=== PATIENT | male | born 1945 | race Caucasian/White ===

== ENCOUNTER 2024-08-25 03:53 | Emergency (ER) | payer MEDICARE, OTHER, SELFPAY ==
[2024-08-25 04:00] VITALS: BP 184/109
[2024-08-25 04:35] VITALS: BP 133/84
[2024-08-25 05:00] VITALS: BP 118/75
--- NOTE | 2024-08-25 05:22 | ED.GENMED ---
History of Present Illness
General
Chief Complaint: Male Genito-Urinary Symptoms
Source: patient
Time Seen by Provider: 08/25/24 05:12
History of Present Illness
History of Present Illness:
79-year-old male who typically urinates 2-3 times at night, has no prior history of prostate enlargement or abnormalities, states that he developed urinary retention today. He developed the same symptoms about a week ago but it resolved on its own.
Today he presented feeling very uncomfortable with suprapubic fullness and inability urinate. Status post Rivera placement he feels much better. He denies hematuria, dysuria, fever, chills, flank pain, abdominal pain, nausea, vomiting, or other
complaints.
Past History
Past History
ED Past Medical History: COPD, HTN, Hypercholesterolemia and Other (Diabetes)
ED Past Surgical History: Other (Noncontributory)
Social History
Tobacco: Former smoker
Alcohol: Occasional
Drug: None
Personal:
Living: with family
Employment: Employed
Family History
Family History: Other (Noncontributory)
Phy Exam
Physical Exam
Physical Exam:
GENERAL: Alert , in no apparent distress
EYE: pupils equal and reactive
NECK: Supple, no significant adenopathy.
ENT: o/p clr, mmm.
CARDIAC: Regular rate and rhythm .
LUNGS: Clear breath sounds bilaterally, no acute respiratory distress, no wheezes/rales/rhonchi
ABDOMEN: Soft, without focal tenderness, no r/g, no cvat
NEUROLOGICAL: Alert and oriented, no focal neuro deficits
SKIN: Warm and dry, skin intact.
MUSCULOSKELETAL: No edema, well perfused.
PSYCH: Normal and appropriate interaction.
, Rivera catheter in place, no abnormalities noted
Course
Orders/Labs/Results
Orders:
Orders
08/25/24 05:22
Tamsulosin [Flomax] 0.4 mg PO NOW STA
Vital Signs
Initial and Last Documented VS:
Initial Vital Signs
Temp Pulse Resp BP Pulse Ox
97.5 F 126 26 184/109 95
08/25/24 04:00 08/25/24 04:00 08/25/24 04:00 08/25/24 04:00 08/25/24 04:00
Last Documented Vital Signs
Temp Pulse Resp BP Pulse Ox
97.5 F 126 26 118/75 94
08/25/24 04:00 08/25/24 04:00 08/25/24 04:00 08/25/24 05:00 08/25/24 05:15
*Critical Care Note
Total Time (30-74mins, 75-104mins- exclusive of procedures): Not Applicable
Update Note
Update Note:
Patient presents to the Emergency Department with ___inability urinate
Number and Complexity of Problems Addressed at the Encounter
� Chronic conditions affecting care:
� Acute Exacerbation and/or Progression of Chronic Illness:
� Differential Diagnosis includes: But not limited to prostate enlargement, medication reaction, constipation related retention, etc. etc.
Amount and/or Complexity of Data to be Reviewed and Analyzed
� I performed an independent evaluation of and my interpretation is:
EKG:
CT:
Xrays:
Laboratory Studies:
Other:
� Review of other/old records reveals:
� Clinical information was obtained by an independent historian:
� Prescriptions/Medications Considered but not given:
� Further testing considered but not performed:
Risk of Complications and/or Morbidity or Mortality of Patient Management
� Social determinants of health affecting care:
� Discussion with other providers (PCP, Hospitalists, Consultants, etc):
� Escalation of care including admission/observation vs risk of discharge considered: Patient very comfortable status post Rivera placement. He will be discharged with a leg bag with instructions for prompt urology follow-up,
started on Flomax. Discussed with patient portance of follow-up and reasons return to ER.
ED Attending Note
-
Portions of this chart may have been created with voice recognition software.� Occasional wrong word or��sound alike� substitutions may have occurred due to the inherent limitations of voice recognition software.
Discharge Plan
Departure
Patient Disposition: Home (Routine Discharge)
Date of Disposition: 08/25/24
Time of Disposition: 05:22
Patient with high blood pressure during this ER visit?: Yes
Condition: Good
Discharge Problem:
Acute urinary retention
Instructions: How to Care for Your Rivera Catheter, Male, Urinary Retention (DC), BLOOD PRESSURE
Prescriptions:
New
tamsulosin [Flomax] 0.4 mg capsule
0.4 mg PO DAILY Qty: 30 0RF
No Action
guaifenesin 200 MG tablet
200 mg PO BID
lisinopril 10 MG tablet
10 mg PO DAILY
albuterol sulfate 1 PUFF HFA aerosol inhaler
1 puff inhalation R Q4HPRN PRN (Reason: SOB)
mometasone [Asmanex Twisthaler] 110 MCG aerosol powdr breath activated
110 mcg inhalation BID
cholecalciferol (vitamin D3) 2,000 UNITS tablet
5,000 unit PO DAILY
vit B complex 100 combo no.2 [B-100 Complex] 100 MG tablet extended release
100 mg PO DAILY
multivitamin with folic acid [Tab-A-Arian] 1 TABLET tablet
1 tab PO DAILY
Liposomal Vitamin C Gel Gel
3 g PO DAILY
prednisone 10 MG tablet
10 mg PO .TAPER Qty: 30 0RF
Rx Instructions:
Take 40mg daily x3days, 30mg daily x3days,
20mg daily x3days, 10mg daily x3days.
Referrals:
Benjamin Crandall Jr., MD [Active] - Follow up in 5-7 days
Activity Restrictions/Additional Instructions:
IF YOU DEVELOP FEVER, ABDOMINAL PAIN, FLANK PAIN, THE CATHETER DOES NOT DRAIN, VOMITING, OR OTHER WORRISOME SIGNS, PLEASE RETURN TO THE ER IMMEDIATELY.
Interventions
Interventions:
*Risk Screen - Suicide Last Done: 08/25/24 04:00
*General Assessment Last Done: 08/25/24 04:00
*Neglect/Abuse Screening Last Done: 08/25/24 04:00
*ED- Fall Risk Assessment Last Done: 08/25/24 04:00
*ED COVID-19 Vaccine History Last Done: 08/25/24 04:00
ED-Male Genitourinary Assessment Last Done: 08/25/24 05:18
Discharge Date and Time
Print Language: MONGOLIAN
[2024-08-25] MEDS: FLOMAX 0.4 MG PO (05:29)
== END 2024-08-25 06:03 | disposition home or self-care (01) ==
LOC: EMR 03:53
PROVIDERS: EMERGENCY PHYSICIAN Emergency Medicine; FAMILY PHYSICIAN Family Medicine
DX: R33.9 Retention of urine, unspecified (principal); J44.9 Chronic obstructive pulmonary disease, unspecified; I10 Essential (primary) hypertension; E78.00 Pure hypercholesterolemia, unspecified; E11.9 Type 2 diabetes mellitus without complications; Z87.891 Personal history of nicotine dependence
CPT/HCPCS: 51702; 99283

== ENCOUNTER 2024-09-11 06:19 | Day surgery (SDC) | payer MEDICARE, SELFPAY ==
[2024-09-07 14:10] VITALS: BMI 24.4
--- NOTE | 2024-09-07 14:48 | PTCARENOTE ---
Abnormal EKG on 09/07/24. Dr. Riggs aware. No intervention required.
[2024-09-11 12:16] VITALS: BP 116/68; BMI 24.4
[2024-09-11 12:30] LABS: Glucose - Point of Care 99 mg/dl (70-99)
[2024-09-11] MEDS: NEOMYCIN ENEMA 1 BOTTLE RECTAL (12:34)
[2024-09-11] MEDS: NORMOSOL-R/PLASMALYTE-A 1000 IV (12:44)
[2024-09-11 14:18] LABS: Glucose - Point of Care 85 mg/dl (70-99)
[2024-09-11 15:03] VITALS: BP 110/60; BP 93/60
[2024-09-11 15:11] LABS: Glucose - Point of Care 95 mg/dl (70-99)
[2024-09-11 15:30] VITALS: BP 101/64
[2024-09-11 15:45] VITALS: BP 102/60
[2024-09-11 16:00] VITALS: BP 109/59
[2024-09-11 16:15] VITALS: BP 120/65
== END 2024-09-11 16:45 | disposition home or self-care (01) ==
LOC: SDS 06:19
PROVIDERS: ATTENDING PHYSICIAN Specialist; FAMILY PHYSICIAN Family Medicine
DX: C61 Malignant neoplasm of prostate (principal); N40.1 Benign prostatic hyperplasia with lower urinary tract symptoms; R97.20 Elevated prostate specific antigen [PSA]
CPT/HCPCS: 55700; 88305; 36415; 82962; 88341; 88342; 93005

== ENCOUNTER 2024-12-02 00:15 | Inpatient (IN) | payer MEDICARE, SELFPAY ==
[2024-12-01] VITALS (11 sets, daily range): BP systolic 100–160; BP diastolic 59–95; BMI 24.8
[2024-12-01 20:58] LABS: Hematocrit 39.2 % (39.0-52.0); Hemoglobin 14.0 g/dL (13.0-18.0); Mean Corp Hgb Conc. 35.7 g/dL (33.0-37.0); Mean Corpuscular Volume 84.5 fL (80.0-94.0); Nucleated Red Blood Cells % 0 % (-); Platelet Count 264 10^3/uL (130-400); Red Cell Dist. Width 13.9 % (11.5-14.5)
[2024-12-01] MEDS: NITROSTAT (SUBLINGUAL) 0.4 MG SL (21:12)
[2024-12-01 21:24] LABS: ALT (SGPT) 26 U/L (0-50); AST (SGOT) 27 U/L (17-59); Albumin 4.4 g/dl (3.5-5.0); Alkaline Phosphatase 71 U/L (38-126); Blood Urea Nitrogen 27 mg/dl (9-20); Calcium 9.3 mg/dl (8.4-10.2); Carbon Dioxide 24 mmol/L (22-30); Chloride 105 mmol/L (98-107); Estimated Creatinine Clearance 66 ml/min; Glucose 155 mg/dl (70-99); Potassium 3.8 mmol/L (3.5-5.1); Sodium 138 mmol/L (135-145); Total Protein 6.9 g/dl (6.3-8.2); Troponin I 0.066 ng/ml; eGFR > 60.00
[2024-12-01] MEDS: TRANDATE 2.5 MG IV (21:33)
[2024-12-01 21:44] LABS: APTT 36.0 Sec (23.4-35.0)
[2024-12-01] MEDS: HEPARIN 4000 UNITS IV (22:17)
--- NOTE | 2024-12-01 22:22 | ED.GENMED ---
History of Present Illness
General
Chief Complaint: Chest Pain
Time Seen by Provider: 12/01/24 20:59
History of Present Illness
History of Present Illness:
79-year-old male with history of hypertension and prostate cancer presenting to the emergency department for chest discomfort. Patient notes prior to arrival he was having severe pain that he described as indigestion, sternal. Notes additional
episode for the past 2 days. The first 2 episodes were associated when he was walking and then prior to arrival he was outside mowing the lawn. Denies any radiation of pain. Denies known cardiac history. Now is reporting some tightness in his
chest and occultly breathing. Denies history of blood clots. He has history of prostate cancer which he is treating with homeopathic methods. Denies fever or cough. Patient arrives by medics, administered aspirin. Patient took 2 of his
lisinopril prior to arrival because his blood pressure was slightly elevated at home. No additional history obtained at this time
Past History
Past History
ED Past Medical History: COPD, HTN, Hypercholesterolemia and Other (Diabetes)
ED Past Surgical History: Other (Noncontributory)
Social History
Tobacco: Former smoker
Alcohol: Occasional
Drug: None
Personal:
Living: with family
Employment: Employed
Family History
Family History: Other (Noncontributory)
Phy Exam
Physical Exam
Physical Exam:
General: Well-appearing, no clinical signs of dehydration, nontoxic and in no acute distress
HEENT: protecting airway
Neck: appears supple
CV: Tachycardic, regular rhythm
Resp: No accessory muscle use, no increased work of breathing, lungs clear to auscultation bilaterally
Abd: Soft and non-distended, no tenderness to palpation
Extremities: No deformities, no swelling
Neuro: alert, no focal neurologic deficit
: deferred
Rectal: deferred
Psych: Normal affect
Skin: Intact
Scores
Heart Score for Chest Pain Patients
STEMI patient?: No
History: Highly Suspicious
ECG: Significant ST-Depression
Age: >/= 65 years
Risk Factors: 1 or 2 Risk Factors
Troponin: >1 - <3 x Normal Limit
Heart Score for Chest Pain Patients: 8
Heart Score Risk: 72.7 % MACE over next 6 weeks
Course
Orders/Labs/Results
Orders:
Orders
12/01/24 20:43
Electrocardiogram (*1) Urgent
Reason for Study: Other
Other Reason for Exam: Respiratory Distress
Cardiac Monitoring- Treatment ONCE
EKG- Treatment ONCE
IV Insert/Care/Rem.- Treatment PRN
CR Chest - 2 Views Urgent
Comment:
Reason For Exam: respiratory distress
O2 Therapy [RESP] Urgent
Titrate/Wean O2 to maintain O2 sat greater than (%): 93
Special Instructions: TO MAINTAIN CONTINUOUS O2 SATS >/= 93%
Pulse Ox/cont/shift [RESP] Urgent
Quantity: 1
Special Instructions: continuous pulse ox
12/01/24 20:52
Complete Blood Count/With Diff Urgent
Comprehensive Metabolic Panel Urgent
NT-proBNP Urgent
Troponin I Urgent
12/01/24 21:07
Aspirin Chewable [Low Strength Aspirin] 324 mg PO NOW STA
Nitroglycerin Sublingual [Nitrostat (Sublingual)] 0.4 mg SL [id number] PRN
12/01/24 21:15
Heparin 4,000 units IV NOW STA
Heparin 59863 Units/250 ml 25,000 units in 250 ml IV PER PROTOCOL
Weight to be used for heparin protocol in kilograms (kg):: 67.5
Protocol:: Cardiac Tx/Acute Coronary
PTT Goal Range to be used:: PTT 73 to 111 seconds
Order type:: Initial
INITIAL Infusion Dose (UNITS/KG/hr) & then follow protocol:: 12 units/kg/hr
Infusion Dose in UNITS/hr & then follow protocol (UNITS/hr):: 800
INFUSION RATE in mL/hr & then follow protocol (mL/hr):: 8
PTT less than or equal to 64 seconds:: Increase rate by 200 units/hr (+ 2 mL/hr)
PTT 64.1 to 72.9 seconds:: Increase rate by 100 units/hr (+ 1 mL/hr)
PTT 73 to 111 seconds:: Target Range. No change in rate.
PTT 111.1 to 130.9 seconds:: Decrease rate by 100 units/hr (- 1 mL/hr)
PTT 131 to 199.9 seconds:: HOLD for 1 hr. Then decrease rate by 200 units/hr (- 2 mL/hr)
PTT greater than or equal to 200 seconds:: HOLD for 2 hrs & Notify Provider. Then decrease by 200 units/hr (-
2 mL/hr)
Lab follow-up:: Each change, PTT q6h until 2 consecutive are therapeutic. Then PTT
daily.
Pharmacy Request to Place See Dose Instructions PO NOW STA
Discontinue all Active Warfarin orders?: Yes
12/01/24 21:16
Labetalol HCl [Trandate] 5 mg IV NOW STA
Nursing to Place Non Medication Order As Directed
Physician Order: PTT 6 hours after initial start of Heparin infusion
Above order entered?: Yes
12/01/24 21:19
PTT Urgent
Comment: Obtain baseline before beginning heparin infusion if not already collected
12/01/24 21:25
CT Chest PE Study Urgent
Comment:
Reason For Exam: untreated prostate CA, chest pain, SOB
12/01/24 21:33
Labetalol HCl [Trandate] 2.5 mg IV NOW STA
12/01/24 21:39
Electrocardiogram (*1) Urgent
Reason for Study: Chest Pain
Electrocardiogram (*1) Urgent
Reason for Study: Chest Pain
EKG- Treatment ONCE
EKG- Treatment ONCE
12/01/24 22:[address] See Dose Instructions IV DIRECTED
Abnormal Lab Results
12/01/24 12/01/24
20:52 21:19
WBC 11.1 H 10^3/uL
(4.8-10.8)
RBC 4.64 L 10^6/uL
(4.70-6.10)
Absolute Neuts (auto) 7.1 H 10^3/uL
(1.4-6.5)
Absolute Monos (auto) 1.1 H 10^3/uL
(0.1-0.6)
Lymphocytes % 19.9 L %
(20.5-51.1)
Monocytes % 10.2 H %
(1.7-9.3)
APTT 36.0 H Sec
(23.4-35.0)
BUN 27 H mg/dl
(9-20)
Glucose 155 H mg/dl
(70-99)
Troponin I 0.066 H* ng/ml
12/01/24 20:52
12/01/24 20:52
Vital Signs
Initial and Last Documented VS:
Initial Vital Signs
Temp Pulse Resp BP Pulse Ox
98.5 F 118 20 151/95 95
12/01/24 20:41 12/01/24 20:41 12/01/24 20:41 12/01/24 20:41 12/01/24 20:41
Last Documented Vital Signs
Temp Pulse Resp BP Pulse Ox
98.5 F 81 16 120/65 97
12/01/24 20:41 12/01/24 23:00 12/01/24 23:00 12/01/24 23:00 12/01/24 23:00
MDM/Problems Addressed
MDM/Problems Addressed:
79-year-old male with history of hypertension and untreated prostate cancer presenting for chest discomfort. Vital signs on arrival significant for tachycardia.
On exam, patient is in no acute distress, however EKG obtained upon triage which is markedly abnormal with ST depression and mild elevation to aVR. No full STEMI criteria, however did immediately discuss with cardiology, Dr. Li who recommends
IV Lopressor, nitro, heparin. Prior to administration of medications, patient's pain noted to resolved. Given untreated prostate cancer with presenting chest pain and tachycardia with dyspnea, PE is also consideration. Will obtain a CT chest.
22:35 - CT of the chest without PE. Patient remains hemodynamically stable. Repeat EKG significantly improved after given interventions. Plan for admission on heparin drip with cardiac consultation
*Pulse Oximetry
SaO2: 95
Oxygen Mode of Delivery: Room air
Patient hypoxic: no
*EKG
Interpreted by ED Provider?: Yes
EKG Intrepretation Date: 12/01/24
EKG Intrepretation Time: 22:32
Interpretation: abnormal
Comparison EKG: changes noted
Heart Rate: 116
Rate: tachycardiac
Rhythm: sinus
[place]: normal axis
Interval: normal interval
QRS Pattern: normal QRS
Ischemia: ST depression
*Critical Care Note
Total Time (30-74mins, 75-104mins- exclusive of procedures): 45
comment:
The high probability of a clinically significant, sudden or life threatening deterioration of the cardiovascular system(s) required my full and direct attention, intervention and personal management. The aggregate critical care time was 45 minutes.
This time is in addition to time spent performing reported procedures but includes the following:
[x] Data Review and interpretation
[x] Patient assessment and monitoring of vital signs
[x] Documentation
[x] Medication orders and management
ED Attending Note
-
Portions of this chart may have been created with voice recognition software.� Occasional wrong word or��sound alike� substitutions may have occurred due to the inherent limitations of voice recognition software.
Discharge Plan
Departure
Patient Disposition: Admit
Date of Disposition: 12/01/24
Time of Disposition: 22:40
Presentation/result/management discussed w/ accepting MD/DO: Hospitalist
Patient with high blood pressure during this ER visit?: Yes
Condition: Critical
Discharge Problem:
Acute non-ST elevation myocardial infarction (NSTEMI)
Prescriptions:
No Action
lisinopril 10 MG tablet
10 mg PO DAILY
Stiolto Respimat 2.5-2.5 mcg/actuation Mist
2 puff INHALATION DAILY
Referrals:
Dominguez Merritt DO [Family Provider, Family Practice]
Interventions
Interventions:
*Risk Screen - Suicide Last Done: 12/01/24 20:41
*General Assessment Last Done: 12/01/24 21:04
*Neglect/Abuse Screening Last Done: 12/01/24 20:41
*ED- Fall Risk Assessment Last Done: 12/01/24 21:04
*ED COVID-19 Vaccine History Last Done: 12/01/24 21:04
ED- Cardiac Assessment Last Done: 12/01/24 21:04
Discharge Date and Time
Print Language: ZIMBABWEAN
--- NOTE | 2024-12-01 22:38 | EDRN ---
med rec not completed. pt reports the only prescriptions he is on is lisinopril 10mg once a day, pt reports today he took 2 additional doses due to high blood pressure. pt reports he also has an inhaler, will be brought in by family member for name
and dose. pt also reports he is on other supplements, 'mistletoe injections' and 'magnets' for his cancer. pt states he has been on a strict keto diet to 'starve the cancer'
--- NOTE | 2024-12-01 23:08 | HPS.HSE ---
Family Physician
-
Family Physician: Dominguez Merritt, DO
Chief Complaint
-
chest pain
History of Present Illness
Mr. Samy Centeno is a 79 yo man with hx essential HTN, HLD, Former smoker, COPD, DM, prostate CA presents to the ER with chest pain that occurred while he was outside mowing his lawn.
Patient states he had prior episodes over past 2 days which occurred while he was walking. He thought pain was indigestion. Today pain came on stronger and was associated with shortness of breath and so he came to the ER. He received aspirin by
EMS. Pain resolved post administration of IV Labetalol and nitro.
Patient currently denying chest pain. No nausea/vomiting. No LE swelling. Currently denies shortness of breath. No fevers/chills.
Medical History
Past Medical History
Past Medical History: Reports Other (essential HTN, HLD, Former smoker, COPD, DM, prostate CA)
Past Surgical History: Reports Other
Social History
Tobacco: Former Smoker
Alcohol: None
Family History
Family History: Not pertinent
Allergies / Home Medications
Allergies reflects when Allergies were last updated in [facility].
Home Medications with original date entered in [facility]
Allergy/Medication List:
Allergies
Allergy/AdvReac Type Severity Reaction Status Date / Time
Penicillins Allergy Swelling Verified 12/01/24 20:40
Home Medications
lisinopril 10 mg tablet 10 mg PO DAILY 05/26/16
tiotropium 2.5 mcg-olodaterol 2.5 mcg/actuation mist for inhalation (Stiolto Respimat) 2 puff inhalation DAILY 09/07/24
Review of Systems
-
History Source: Patient
A 12 point ROS was completed and negative except as noted: Yes
Physical Exam
Vital Signs
Vital Signs
Temp Pulse Resp BP Pulse Ox
98.5 F 81 16 120/65 97
12/01/24 20:41 12/01/24 23:00 12/01/24 23:00 12/01/24 23:00 12/01/24 23:00
Physical Exam
General: No Apparent Distress
HEENT: PERRLA
Respiratory: Clear; No Wheezes
Cardiac: S1/S2 and Regular Rhythm
GI: Soft and Non Tender
Musculoskeletal: No Edema
Skin: Warm and Dry; No Rash
Neuro: AO x 3
Psych: Calm
Laboratory Results
-
12/01/24 20:52
12/01/24 20:52
Laboratory Results
APTT 36.0 Sec (23.4-35.0) H 12/01/24 21:19
Total Bilirubin 0.4 mg/dl (0.2-1.3) 12/01/24 20:52
AST 27 U/L (17-59) 12/01/24 20:52
ALT 26 U/L (0-50) 12/01/24 20:52
Alkaline Phosphatase 71 U/L (38-126) 12/01/24 20:52
Troponin I 0.066 ng/ml H* 12/01/24 20:52
Data Reviewed
-
Diagnostic Radiology: Report Reviewed by me
Lab Data: Labs Reviewed by me
Impression/Plan
-
Mr. Samy Centeno is a 79 yo man with hx essential HTN, HLD, Former smoker, COPD, DM, prostate CA presents to the ER with chest pain that occurred while he was outside mowing his lawn, found to have NSTEMI.
Triage VS: T 98.5, P 118, RR 20, BP 151/95, SpO2 95%
LABS: WBC 11.1, Hg 14, PLT 264, Na 138, K+ 3.8, Cl 105, CO2 24, Cr 0.8, Glucose 155, liver enzymes WNL, Trop 0.066, BNP [address] depressions inferior and anterolateral leads with follow up EKG showing resolution
CT Chest - no definite PE, no evidence of aortic dissection, borderline enlarged 9mm RP lymph node left periaortic felicia group
NSTEMI
-patient received aspirin by EMS.
-significant ST depressions on initial EKG. Case was discussed with Dr. Li. Patient received IV Lopressor, Nitro and started on a heparin gtt. With resolution of pain, repeat EKG improved
-admit to IVU
-Asa 81mg PO QD; Lipitor 40mg PO qhs
-s/p Labetalol in ER, will start Metoprolol 25mg PO BID
-continue IV Heparin gtt, ordered to start in ER
-NPO after MN
-TTE
-Cardiology consult
-trend Troponin
-F/U lipid panel, A1c
Essential HTN
-CLINICAL EVALUATOR Lisinopril
prostate CA
-patient treats with homeopathic medications
Abnormal Thyroid nodule on CT Chest
-nonurgent follow up with thyroid US
DM
-not on medications
-ISS low
COPD
-CLINICAL EVALUATOR Stiolto
DVT PPx Heparin gtt
FULL CODE
76 minutes spent on patient care
[2024-12-02] VITALS (9 sets, daily range): BP systolic 93–128; BP diastolic 55–76; BMI 24.7; BMI 24.6
[2024-12-02] MEDS: LIPITOR 40 MG PO ×2 (00:37→17:28)
[2024-12-02] MEDS: FLUSH (NSS) 1 FLUSH IV (00:38)
[2024-12-02] MEDS: HEPARIN 25000 UNITS/250 ML IV (00:38)
--- NOTE | 2024-12-02 02:21 | PTCARENOTE ---
Pt. rec'd into room 2244 from ED AAOx3, VSS, NSR on the monitor. Pt. denies any chest pain / discomfort. Ambulates with steady gait. Heparin gtt infusing at 800 units/hr. Admission completed and plan of care discussed with pt., understanding
verbalized. NPO for possible CC in AM. Pt. currently watching television.
[2024-12-02 03:39] LABS: Hematocrit 36.4 % (39.0-52.0); Hemoglobin 12.7 g/dL (13.0-18.0); Mean Corp Hgb Conc. 34.9 g/dL (33.0-37.0); Mean Corpuscular Volume 85.0 fL (80.0-94.0); Platelet Count 229 10^3/uL (130-400); Red Cell Dist. Width 14.1 % (11.5-14.5)
[2024-12-02 04:04] LABS: Blood Urea Nitrogen 22 mg/dl (9-20); Calcium 9.3 mg/dl (8.4-10.2); Carbon Dioxide 26 mmol/L (22-30); Chloride 107 mmol/L (98-107); Estimated Creatinine Clearance 76 ml/min; Glucose 86 mg/dl (70-99); Magnesium 2.0 mg/dl (1.6-2.3); Potassium 3.5 mmol/L (3.5-5.1); Sodium 139 mmol/L (135-145); eGFR > 60.00
[2024-12-02 04:17] LABS: Troponin I 0.656 ng/ml
[2024-12-02 06:47] LABS: APTT 64.3 Sec (23.4-35.0)
[2024-12-02] MEDS: STRIVERDI RESPIMAT 2 PUFF INH (08:01)
[2024-12-02 08:39] LABS: Glucose - Point of Care 108 mg/dl (70-99)
[2024-12-02] MEDS: LOPRESSOR 12.5 MG PO ×2 (08:54→19:27)
[2024-12-02] MEDS: ASPIR LOW (ENTERIC COATED) 81 MG PO (08:54)
[2024-12-02] MEDS: ZESTRIL PO (09:58)
[2024-12-02 10:14] LABS: Troponin I 0.582 ng/ml
[2024-12-02 10:26] LABS: Glycohemoglobin (HgbA1c) 5.2 % (4.0-5.6)
--- NOTE | 2024-12-02 11:24 | CON.CAR ---
Consultation
Consultation Request
Date/Time Consultation Requested: 12/02/2024
Date/Time Consultation Performed: 12/02/2024
Requesting Provider: Dr. Conti
Performing Provider: Dr. Ma
Reason for Consultation: Chest pain
Medical History
-
Chief Complaint: Chest pain
History of Present Illness:
79-year-old male with hypertension, NIDDM (treated with Mounjaro; which he stopped 2 weeks ago), obesity, COPD (former smoker of 2 PPD x 40 years; quit 18 years ago), and prostate cancer presenting with 3-day history of recurrent chest pain. The
patient states that he began experiencing midsternal chest pain 3 days ago, which progressively got worse, especially when he was mowing his lawn yesterday. His chest pain persisted for almost 2 hours yesterday, which prompted him to come to the
ER. 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 Patient was noted to have significant ST/T wave abnormality on his initial EKG,
which improved on subsequent EKG with resolution of chest pain. He denies shortness of breath, palpitations, syncopal events, or lower extremity swelling.
Past Medical History
Past Medical History: HTN
Past Surgical History: Urological (Surgery for prostate cancer)
Social History
Alcohol: Occasional
Drug: None
Family History
Family History: Reviewed & Not Pertinent
Allergies / Home Medications
Allergy/AdvReac Type Severity Reaction Status Date / Time
Penicillins Allergy Swelling Verified 12/01/24 20:40
�Medication �Instructions �Recorded �Confirmed �Type
lisinopril 10 mg tablet 10 mg PO DAILY 05/26/16 12/01/24 History
tiotropium 2.5 mcg-olodaterol 2.5 2 puff inhalation DAILY 09/07/24 09/11/24 History
mcg/actuation mist for inhalation
(Stiolto Respimat)
albuterol sulfate 90 mcg/actuation 2 puff inhalation Q6H PRN 12/01/24 History
aerosol inhaler sob/wheeze
Review of Systems
-
History Source: Patient
All other systems: Negative unless noted
Physical Exam
Vital Signs
Temp Pulse Resp BP Pulse Ox
97.2 F 78 18 105/59 97
12/02/24 07:18 12/02/24 09:00 12/02/24 08:06 12/02/24 07:18 12/02/24 08:06
Lab Results
12/02/24 03:15
12/02/24 03:15
Troponin I 0.582 ng/ml H* 12/02/24 09:37
Yvl-A-Nowlikuwbez Pept 282 pg/ml 12/01/24 20:52
Physical Exam
General: No Apparent Distress and Comfortable
HEENT: Normocephalic and Anicteric
Respiratory: Rhonchi (Bibasilar)
Cardiac: S1/S2 and Regular Rhythm
Breast: N/A
GI: Soft
Rectal: Deferred by Provider
Musculoskeletal: No Edema
Skin: Warm and Dry
Neuro: AO x 3
Psych: Calm
Impression / Plan
-
79-year-old male with hypertension, NIDDM (treated with Mounjaro; which he stopped 2 weeks ago), obesity, COPD (former smoker of 2 PPD x 40 years; quit 18 years ago), and prostate cancer presenting with 3-day history of recurrent chest pain. The
patient states that he began experiencing midsternal chest pain 3 days ago, which progressively got worse, especially when he was mowing his lawn yesterday. His chest pain persisted for almost 2 hours yesterday, which prompted him to come to the
ER. 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 Patient was noted to have significant ST/T wave abnormality on his initial EKG,
which improved on subsequent EKG with resolution of chest pain.
Chest pain/NSTEMI.
- Significant ST/T wave abnormality on his initial EKG ([address] depression, 1.[address] elevation in aVR), which improved on subsequent EKG with resolution of chest pain.
- Concern for left main disease, proximal LAD disease, or multivessel CAD.
- Troponin peaked at 0.656.
- Given full-dose aspirin; continue aspirin 81 mg daily.
- Continue heparin drip.
- Started on atorvastatin 40 mg daily; continue.
- Will obtain an echocardiogram today.
- Patient is chest pain-free at this time.
- Will plan for cardiac catheterization tomorrow morning--unless there is clinical progression, which would prompt more urgent cardiac catheterization; NPO after midnight.
- Check lipid panel.
Hypertension:
Blood pressure is controlled.
- Continue lisinopril 10 mg daily.
- Started on metoprolol tartrate 12.5 mg twice daily; continue.
Diabetes:
- Hemoglobin A1c 5.2%.
- Patient states that he was on Mounjaro for a few years; stopped it 2 weeks ago because he thinks he is 'cured' (it was expressed to the patient today that Mounjaro is how his diabetes got controlled).
Obesity:
- Weight loss recommended.
Data Reviewed
-
EKG: Tracing Personally Visualized and interpreted (Sinus rhythm with significant ST/T wave abnormality on his initial EKG ([address] depression, 1.[address] elevation in aVR); resolved on subsequent EKGs.)
CT Scan: Report Reviewed by me (No PE)
Medical Tests (Nuc Med, Echo etc): Other (Ordered)
Labs: Labs Reviewed by me, Discussed with Physician, Discussed with Nurse and Discussed with Patient
--- NOTE | 2024-12-02 12:14 | W.PN.HOSP.TC ---
Today's Communication/Plan
-
Monitor vital signs and see plan
Echo today
Plan for cardiac catheterization tomorrow
Continue with heparin drip
Continue aspirin
Continue lisinopril, metoprolol
Assessment / Plan
Assessment / Plan
General: No Apparent Distress
HEENT: PERRLA
Respiratory: Clear; No Wheezes
Cardiac: S1/S2 and Regular Rhythm
GI: Soft and Non Tender
Musculoskeletal: No Edema
Skin: Warm and Dry; No Rash
Neuro: AO x 3
Psych: Calm
NSTEMI
-significant ST depressions on initial EKG. Case was discussed with Dr. Li. Patient received IV Lopressor, Nitro and started on a heparin gtt. With resolution of pain, repeat EKG improved
-Asa 81mg PO QD; Lipitor 40mg PO qhs
Continue heparin drip
Echo 12/02
Plan for cardiac catheterization tomorrow per cardiology
Continue metoprolol
Cardiology following
Trend troponin
-F/U lipid panel, A1c
Essential HTN
-ACCOUNT ADVISOR Lisinopril
cw metoprolol
prostate CA
-patient treats with homeopathic medications
Abnormal Thyroid nodule on CT Chest
-nonurgent follow up with thyroid US
DM
-not on medications
-ISS low
A1c 5.2
COPD
-ACCOUNT ADVISOR Stiolto
DVT PPx Heparin gtt
FULL CODE
Anticipated Discharge: 24 - 48 hours
Subjective/Interval History
-
Date of Service: December 02, 2024
Denies nausea
Objective Data
-
Labs:
Laboratory Results
12/02/24 12/02/24 12/02/24
03:15 06:19 13:00
WBC 10.2
Hgb 12.7 L
Hct 36.4 L
Plt Count 229
APTT 64.3 H Pending
Sodium 139
Potassium 3.5
Chloride 107
Carbon Dioxide 26
BUN 22 H
Creatinine 0.7
Glucose 86
Calcium 9.3
Vital Signs:
Vital Signs
Temp Pulse Resp BP Pulse Ox
97.7 F 84 20 105/59 95
12/02/24 11:50 12/02/24 11:00 12/02/24 11:50 12/02/24 07:18 12/02/24 11:50
I&O
12/01/24 12/02/24 12/03/24
06:59 06:59 06:59
Output Total 300 / 300
Balance -300 / -300
[2024-12-02 12:43] LABS: Glucose - Point of Care 102 mg/dl (70-99)
[2024-12-02 13:15] LABS: APTT 67.8 Sec (23.4-35.0)
[2024-12-02 13:28] LABS: Troponin I 0.474 ng/ml
[2024-12-02 16:52] LABS: Glucose - Point of Care 106 mg/dl (70-99)
--- NOTE | 2024-12-02 17:33 | PTCARENOTE ---
pt continues to be sr on the monitor, hr in the 80s, vss. pt denies cp/sob at this time. pt ambulating in room and tolerating well. pt educated on plan of care and pt verbalized understanding. heparin gtt running per protocol, see documentation.
call owen within reach.
[2024-12-02 20:17] LABS: APTT 69.1 Sec (23.4-35.0)
[2024-12-02 21:17] LABS: Glucose - Point of Care 102 mg/dl (70-99)
[2024-12-03] VITALS (15 sets, daily range): BP systolic 93–144; BP diastolic 55–90
--- NOTE | 2024-12-03 01:33 | PTCARENOTE ---
Pt. has had no complaints of chest pain so far this shift, NSR on the monitor, VSS. Ambulating without difficulty. Plan for cardiac cath in AM, discussed with pt., understanding verbalized.
[2024-12-03] MEDS: HEPARIN 25000 UNITS/250 ML IV ×2 (01:45→16:26)
[2024-12-03 02:58] LABS: Hematocrit 36.6 % (39.0-52.0); Hemoglobin 12.8 g/dL (13.0-18.0); Mean Corp Hgb Conc. 35.0 g/dL (33.0-37.0); Mean Corpuscular Volume 85.9 fL (80.0-94.0); Nucleated Red Blood Cells % 0 % (-); Platelet Count 250 10^3/uL (130-400); Red Cell Dist. Width 14.4 % (11.5-14.5)
[2024-12-03 03:08] LABS: APTT 76.7 Sec (23.4-35.0)
[2024-12-03 03:18] LABS: Blood Urea Nitrogen 21 mg/dl (9-20); Calcium 8.9 mg/dl (8.4-10.2); Carbon Dioxide 26 mmol/L (22-30); Chloride 110 mmol/L (98-107); Estimated Creatinine Clearance 76 ml/min; Glucose 109 mg/dl (70-99); HDL Cholesterol 32 mg/dl; LDL Cholesterol, Calculated 100 mg/dl; Potassium 3.7 mmol/L (3.5-5.1); Sodium 138 mmol/L (135-145); Very Low Density Lipoprotein 55 mg/dl (0-30); eGFR > 60.00
[2024-12-03 03:49] LABS: TSH 1.80 uIU/ml (0.47-4.68)
[2024-12-03] MEDS: STRIVERDI RESPIMAT 2 PUFF INH (08:08)
[2024-12-03] MEDS: LOPRESSOR 12.5 MG PO ×2 (09:25→19:31)
[2024-12-03] MEDS: ZESTRIL 10 MG PO (09:26)
[2024-12-03] MEDS: ASPIR LOW (ENTERIC COATED) 81 MG PO (09:26)
--- NOTE | 2024-12-03 10:28 | PTCARENOTE ---
pt is sr on the monitor, hr in the 60s, vss. pt offers no complaints this am. pt denies cp/sob. heparin gtt running per protocol, see documentation. pt educated on plan of care and verbalized understanding. call owen within reach.
--- NOTE | 2024-12-03 10:38 | W.PN.CD ---
Today's Communication / Plan
-
Cardiac catheterization for clarification of coronary anatomy.
Maintain all current medications in the interim.
Impression / Plan
-
Impression/Plan: 79-year-old male with hypertension, NIDDM (treated with tirzepatide; which he stopped 2 weeks ago), obesity, COPD (former smoker of 2 PPD x 40 years; quit 18 years ago), and prostate cancer admitted with NSTEMI.
#Chest pain/NSTEMI.
-Acute, threat to life.
-Significant ST/T wave abnormality on his initial EKG ([address] depression, 1.[address] elevation in aVR), which improved on subsequent EKG with resolution of chest pain.
-Troponin peaked at 0.656.
-Echocardiogram shows preserved systolic function. LVEF 55-60%.
-Cardiac catheterization today to clarify coronary anatomy.
-Continue aspirin, atorvastatin, heparin gtt, lisinopril, metoprolol.
#Hypertension:
-Chronic, stable.
-Continue lisinopril 10 mg daily, metoprolol tartrate 12.5 mg twice daily.
#NIDDM2:
-Chronic, stable.
-Hemoglobin A1c = 5.2%.
-Patient states that he was on tirzepatide for a few years; stopped it 2 weeks ago because he thinks he is 'cured'.
#Obesity:
-Weight loss recommended.
Subjective/Interval History:
Chest pain free.
DATA:
CTPE, 12/01/2024:
IMPRESSION:
1. No evidence of central or segmental pulmonary embolism.
2. There are opacities within the bilateral lower lobe secondary to represent atelectasis.
3. 2.5 cm heterogeneous nodule within the posterior right hemithyroid. Recommend nonemergent thyroid ultrasound for further evaluation. Given slightly increased size from prior examination.
4. Prominent retroperitoneal lymph nodes, similar to recent prior PET and consistent with known malignancy.
TTE, 12/02/2024:
CONCLUSIONS
Estimated left ventricular ejection fraction is 55-60%. Normal regional wall
motion.
Normal right ventricular size and function.
No significant valvular disease.
No significant change since the prior study of 07/13/2016.
Physical Exam
Vital Signs/Labs
Vital Signs
Temp Pulse Resp BP Pulse Ox
36.5 C 85 18 118/90 97
12/03/24 07:33 12/03/24 09:26 12/03/24 08:11 12/03/24 09:26 12/03/24 07:56
12/01/24 12/02/24 12/03/24
11:59 11:59 11:59
Actual Weight 67 kg
12/03/24 02:26
12/03/24 02:26
APTT 76.7 Sec (23.4-35.0) H 12/03/24 02:26
Magnesium 2.0 mg/dl (1.6-2.3) 12/02/24 03:15
Triglycerides 275 mg/dl (10-149) H 12/03/24 02:26
LDL Cholesterol, Calc 100 mg/dl 12/03/24 02:26
VLDL Cholesterol, Calc 55 mg/dl (0-30) H 12/03/24 02:26
HDL Cholesterol 32 mg/dl 12/03/24 02:26
TSH 1.80 uIU/ml (0.47-4.68) 12/03/24 02:26
12/01/24
20:52
Nix-D-Ncepbdicmxd Pept 282
LAB Results
12/01/24 12/02/24 12/02/24
20:52 03:15 09:37
Troponin I 0.066 H* 0.656 H* D 0.582 H*
12/02/24
12:46
Troponin I 0.474 H*
Physical Exam
Constitutional: No acute distress and Comfortable
EENT: Anicteric and Moist mucous membranes
Cardiovascular: Rhythm & rate is regular, Pedal edema is absent, JVD pressure is normal, S1S2 is normal and Murmur/rub/gallop absent
Respiratory: Respiratory effort normal, Lungs clear to auscul., Wheeze Absent, Crackles Absent and Rhonchi Absent
GI: Soft, Distention absent, Flat, Non tender and Normal bowel sounds
Neuro/Psych: AO x 3
Data Reviewed
-
Date of Service: December 03, 2024
Medical Decision Making: Reviewed Test Results, Independent Historian Assessment and Test Interpretation
EKG: Tracing Personally Visualized and interpreted and Report Reviewed by me
Echo: Report Reviewed by me
X-Ray/CT/US/MRI/NUC/PET: Image Personally Visualized and interpreted and Report Reviewed by me
Labs: Labs Reviewed by me
--- NOTE | 2024-12-03 12:26 | W.PN.HOSP.TC ---
Today's Communication/Plan
-
Monitor vital signs and see plan
Heparin drip, lisinopril, metoprolol
Cardiac cath today
Assessment / Plan
Assessment / Plan
General: No Apparent Distress
HEENT: PERRLA
Respiratory: Clear; No Wheezes
Cardiac: S1/S2 and Regular Rhythm
GI: Soft and Non Tender
Musculoskeletal: No Edema
Skin: Warm and Dry; No Rash
Neuro: AO x 3
Psych: Calm
NSTEMI
-significant ST depressions on initial EKG. Case was discussed with Dr. Li. Patient received IV Lopressor, Nitro and started on a heparin gtt. With resolution of pain, repeat EKG improved
-Asa 81mg PO QD; Lipitor 40mg PO qhs
Continue heparin drip
Echo 12/02 with preserved EF
Plan for cardiac catheterization tomorrow per cardiology
Continue metoprolol
Cardiology following
Troponin noted
LDL 100,A1c 5.2
Essential HTN
-ROD WELDER Lisinopril
cw metoprolol
prostate CA
-patient treats with homeopathic medications
Abnormal Thyroid nodule on CT Chest
-nonurgent follow up with thyroid US
DM
-not on medications
-ISS low
A1c 5.2
COPD
-ROD WELDER Stiolto
on prn home o2
DVT PPx Heparin gtt
FULL CODE
Anticipated Discharge: Within 24 hours
Subjective/Interval History
-
Date of Service: December 03, 2024
Denies chest discomfort
Objective Data
-
Labs:
Laboratory Results
12/03/24 12/03/24
02:26 08:30
WBC 11.1 H
Hgb 12.8 L
Hct 36.6 L
Plt Count 250
APTT 76.7 H Cancelled
Sodium 138
Potassium 3.7
Chloride 110 H
Carbon Dioxide 26
BUN 21 H
Creatinine 0.7
Glucose 109 H
Calcium 8.9
Vital Signs:
Vital Signs
Temp Pulse Resp BP Pulse Ox
97.7 F 85 18 118/90 97
12/03/24 07:33 12/03/24 09:26 12/03/24 08:11 12/03/24 09:26 12/03/24 07:56
I&O
12/02/24 12/03/24 12/04/24
06:59 06:59 06:59
Intake Total 580 / 580
Output Total 300 / 300 1300 / 1300 275 / 275
Balance -300 / -300 -720 / -720 -275 / -275
[2024-12-03 12:39] LABS: Glucose - Point of Care 108 mg/dl (70-99)
--- NOTE | 2024-12-03 13:32 | CONSULT.CT ---
Consultation
-
Date/Time Consultation Requested: 12/03/24
Requesting Provider: Dr. Alon Kebede
Performing Provider: MONICO Day
Reason for Consultation: CABG
Patient History
Physicians
Family Physician: Dominguez Merritt
Inpatient Engineering Mechanic: [facility]
History of Present Illness
Samy Centeno is a 79-year-old male with a PMHx of HTN, HLD, T2DM (Mounjaro, 5.2%), COPD (PRN home O2 use - 2L), and Prostate Ca (homeopathic tx) who presented to [facility] ED (12/01/24) via EMS with complaints of chest pressure, dyspnea, and indigestion
who was admitted with NSTEMI. Mr. Centeno reported he began having indigestion over the last few days leading to calling EMS. He attempted to alleviate his indigestion with use of home magnets and Tums. He reported intermittent relieved after
30-minutes of starting an intervention until symptoms began to progress with accompanying chest pressure and dyspnea while performing household tasks. He further shared that his home BP cuff reported a SBP of 150, which he presumed to be higher and
took an additional dose of his Lisinopril. Upon ED arrival, CT Chest was negative for PE with an incidental finding of thyroid nodule in which he was referred for outpatient follow-up with US, thyroid function was normal upon laboratory studies. EKG
showed ST/T wave abnormality which improved on a subsequent EKG with resolution of his chest pressure. Troponin was trended in which he peaked at 0.656. TTE (12/02/24) showed LVEF of 55-60% with NRWMA, normal RV, and no VHD; no changes were noted
since a previous TTE on 07/13/16. He underwent a LHC (12/03/24) with Dr. Kebede which showed R dominant Cir with 90% lesion of ostium of RCA, 50% lesion of distal aspect of prox RCA, 50% mid RCA, 50-60% distal RCA, 90% lesion in distal margin of
LM,40% pLAD, 40% D1 and D2, and 60-70% lesion distal D2, 40% lesion mid Cx extending to proximal margin of OM2; LVEDP of 10 was reported. Cardiothoracic Surgery was consulted in consideration of revascularization with CABG.
Past Medical History
Past Medical History: Cancer (Prostate Ca), COPD, HTN, NIDDM and Other
Past Surgical History
Past Surgical History: Urological (reported exploratory procedure)
Family History
Mother: at Age (86)
Father: Still Living
Family Medical History: CAD
Social History
Alcohol: None
Drug: None
Tobacco: Former Smoker
Living: With Family (Two daughters (18 & [id number]))
Allergies
Allergy/AdvReac Type Severity Reaction Status Date / Time
Penicillins Allergy Swelling Verified 12/01/24 20:40
Home Medications
�Medication �Instructions �Recorded �Confirmed �Type
lisinopril 10 mg tablet 10 mg PO DAILY 05/26/16 12/01/24 History
tiotropium 2.5 mcg-olodaterol 2.5 2 puff inhalation DAILY 09/07/24 12/02/24 History
mcg/actuation mist for inhalation
(Stiolto Respimat)
albuterol sulfate 90 mcg/actuation 2 puff inhalation Q6H PRN 12/01/24 12/02/24 History
aerosol inhaler sob/wheeze
Review of Systems
-
History Source: Patient
General: Reports No Symptoms
HEENT: Reports No Symptoms
Respiratory: Reports FORDE and Cough (chronic, PMHx of COPD)
Cardiac: Reports Chest Pain (Chest Pressure with exertion)
Abdomen/GI: Reports Indigestion and Diarrhea
: Reports No Symptoms
Musculoskeletal: Reports No Symptoms
Skin: Reports No Symptoms
Neurological: Reports Headaches
Vascular: Reports No Symptoms
Physical Exam
Vital Signs
Temp 97.7 F 12/03/24 07:33
Temp route: Oral 12/03/24 07:33
Pulse 69 12/03/24 12:30
Rhythm: Normal sinus rhythm 12/03/24 07:56
Resp Rate 18 12/03/24 08:11
Blood pressure 104/55 12/03/24 12:30
Blood pressure extremity used: Left upper arm 12/03/24 07:33
Position: Lying 12/03/24 07:33
MAP (cuff-Brad Monitor) 72 12/03/24 12:30
SaO2 92 12/03/24 12:30
Nasal Cannula flow liters per minute 2 12/03/24 08:11
Oxygen Mode of Delivery Room air 12/03/24 07:56
Can the patient verbally communicate their pain? Yes 12/02/24 01:29
Pain scale ratin 12/01/24 21:17
Actual Weight 67 kg 12/02/24 06:00
Body Mass Index (BMI) 24.6 12/02/24 06:00
Labs
12/03/24 02:26
12/03/24 02:26
APTT Cancelled 12/03/24 08:30
Hemoglobin A1c 5.2 % (4.0-5.6) 12/02/24 03:15
Troponin I 0.474 ng/ml H* 12/02/24 12:46
Hov-C-Qvbqmogbahb Pept 282 pg/ml 12/01/24 20:52
Exam
General: No Apparent Distress and Comfortable
HEENT: Normocephalic, Atraumatic, PERRLA and EOMI
Respiratory: Clear
Cardiac: S1/S2 and Regular Rhythm
GI: Soft, Non Tender, Non Distended and Normal Bowel Sounds
Skin: Warm and Dry
Neuro: Awake, Alert, Oriented and AO x 3
Extremities: Pulses (+2 DP B/L, +1 R Radial, +2 L Radial)
Lymph: No Lymphadenopathy
Psych: Calm
Assessment / Plan
-
# Coronary Artery Disease with NSTEMI
- CTS consulted for revascularization with CABG.
- Patient's case will be discussed with Attending Physician. Further details regarding timing of surgical intervention will be determined after Attending Physician's full evaluation. Tentative plan for Tuesday12/05/24.
- Routine preoperative CTS orders initiated.
- Labwork including T&S.
- CT Chest w/o contrast.
- Cerebrovascular US.
- 2-V CXR
- PFT's with ABG due to PMHx of COPD and PRN home O2 use.
- Anesthesia Consult placed
- STS risk stratification score will be calculated after preoperative testing is completed
- Continue Heparin gtt per Cardiology/Primary team.
- Lisinopril placed on hold for pre-op CTS.
#COPD
- Pt with known PMHx of COPD, former tobacco misuse of 2 PPD for 40-years, quit [id number]
- Current home regiment:
- Albuterol
- Stiolto Respimat
- Uses Home O2 PRN - 2L NC
- PFT's with DLCO ordered for surgical planning
# Hypertension
- Patient with known PMHx of HTN.
- Outpatient regiment of Lisinopril placed on hold for pre-op CABG.
- Primary Team made aware.
# Prostate Ca
- Recently diagnosed 2-months ago with use of bicalutamide, stopped 2-weeks ago.
- Reported exploratory surgery.
- Pt reports homeopathic regiment started 2-weeks ago of:
- Mistletoe injection q2-3 days
- Methylene Blue HS
- Ketogenic Diet
- Reports plan to follow-up as outpatient for PSA in few weeks and PET CT in few months.
# Hyperlipidemia
- Lipid Panel: Trig 275, LDL 100, Chol 187, HDL 32
- Continue Lipitor 40 mg daily
Data Reviewed
-
EKG: Report Reviewed by me
Wiener Packer: Report Reviewed by me and Discussed with Physician
Echo: Report Reviewed by me
Labs: Labs Reviewed by me
Total Time Spent with Patient (in minutes): 25
--- NOTE | 2024-12-03 13:55 | CM ---
Reviewed chart. Met with Mr. Centeno to review discharge plans. He states prior to admission he resides with his two daughters, ages 16 and 18 in a one story home with a full flight of steps to enter. He states prior to admission he was independent
with ambulation and adls. He states he has home 02 that he uses as needed. He states [id number] supplies his home 02. He states he has a prescription plan and uses [facility]. Medical work-up in progress. The discharge plan is to return home
with his daughters when medically stable.
--- NOTE | 2024-12-03 14:00 | ITS.CL.CATH ---
Underwriting Manager - Catheterization
Cardiac Catheterization
Procedure Report:
CARDIAC CATHETERIZATION REPORT
Date of Procedure: 12/03/2024
Referring: Corey Ma M.D.
INDICATION: Non-ST elevation myocardial infarction.
PROCEDURE:
1. Left heart catheterization.
2. Coronary angiography.
A total of 25 minutes of procedural/moderate sedation was utilized. An independent medical driver was present to assist with and help manage the patient's level of consciousness and physiologic status.
ACCESS:
1. 6 Prydeinig right bradycardia artery using a modified Seldinger technique.
CATHETERS:
1. 5 Prydeinig JR4.
2. 5 Prydeinig JL 3.5.
HEMODYNAMIC DATA
Weight (kg): 66.7
AO (s/d/x, mmHg): 70/40/53
LV (s/x mmHg): 75/10
LEFT VENTRICULOGRAPHY: Not performed.
CORONARY ANGIOGRAPHY
Dominance: Right.
Left Main: Long, bifurcating vessel. There is a calcified, 90% lesion in the distal margin of the left main immediately proximal to the bifurcation.
LAD: Normal size vessel giving rise to 2 diagonals. There is severe, external calcification. There is a densely calcified 40% lesion in the proximal vessel, proximal to the origin of D1. There is another 40% lesion immediately distal to the
origin of D1. There is a 60-70% lesion immediately distal to the origin of D2. The distal and apical vessel appear healthy.
Ramus: Congenitally absent.
Circumflex: Normal size, nondominant vessel giving rise to 2 obtuse marginals. OM1 is a small vessel that arises very high off the circumflex and is 1.5 mm in diameter. The second marginal is a much larger vessel supplying the majority of the
lateral and inferolateral wall. There is a 40% lesion in the mid circumflex extending into the proximal margin of OM 2.
RCA: Normal size, dominant vessel. There is a 90% lesion in the ostium of the RCA making it difficult to engage. Angiography was performed in a nonselective fashion. There is moderate to severe external calcification. There is a 50% lesion in
the distal aspect of the proximal RCA. There is another 50% lesion in the mid RCA, immediately proximal to the crux. There is a 50-60% lesion in the distal RCA immediately after the crux.
INTERVENTION(S)
None.
Closure Device: Vascular band.
Radiation (mGy): 314.24
DAP (cm2.Gy): 18.6584
Fluoroscopy time (minutes): 3.5
CONCLUSIONS
1. Right dominant circulation with a 90% lesion in the ostium of the RCA, a 50% lesion in the distal aspect of the proximal RCA, a 50% lesion in the mid RCA, a 50-60% lesion in the distal RCA immediately after the crux, and 90% lesion in the distal
margin of the left main coronary artery, a 40% lesion in the proximal LAD, a 40% lesion in between D1 and D2 and a 60-70% lesion immediately distal D2 as well as a 40% lesion in the mid circumflex extending into the proximal margin of OM 2.
2. Transient hypotension with LVEDP of 10 mmHg. Hypotension resolved with fluid bolus.
RECOMMENDATIONS:
1. Expectant management after cardiac catheterization via right radial approach.
2. Limited weight bearing on the right wrist for one week.
3. Consultation with CT surgery regarding optimal revascularization technique.
4. OMT/GDMT as hemodynamics will tolerate.
5. Aggressive secondary prevention with high-dose, high potency statin. Goal LDL <55.
Copy to: Corey Ma M.D., Dominguez Merritt D.O.
Alon Kebede, DO, FACC, FACP
--- NOTE | 2024-12-03 14:25 | PTCARENOTE ---
pt back from ccl. right radial is cdi. pt offers no complaints at this time. pt educated on plan of care and pt verbalized understanding. pt continues to be sr on the monitor, hr in the 70s, vss. pt resting in bed comfortably. call owen within
reach.
[2024-12-03 17:09] LABS: Glucose - Point of Care 93 mg/dl (70-99)
[2024-12-03] MEDS: LIPITOR 40 MG PO (17:40)
--- NOTE | 2024-12-03 18:13 | PTCARENOTE ---
pt continues to be sr on the monitor, hr in the 90s, vss. pt offers no complaints at this time. heparin gtt restarted per order, see documentation. right radial is cdi. pt resting in bed with family at bedside. call owen within reach.
[2024-12-03 22:33] LABS: Glucose - Point of Care 89 mg/dl (70-99)
[2024-12-03 22:58] LABS: APTT 63.4 Sec (23.4-35.0)
--- NOTE | 2024-12-03 23:03 | PTCARENOTE ---
Received patient at change of shift. SR on the monitor, HR in the 80s. Heparin running as per protocol, see documentation. R radial dressing CDI. No complaints from pt at this time, call owen within reach.
[2024-12-04] VITALS (9 sets, daily range): BP systolic 92–143; BP diastolic 48–87; BMI 24.1
[2024-12-04 05:23] LABS: Hematocrit 37.6 % (39.0-52.0); Hemoglobin 12.9 g/dL (13.0-18.0); Mean Corp Hgb Conc. 34.3 g/dL (33.0-37.0); Mean Corpuscular Volume 87.9 fL (80.0-94.0); Nucleated Red Blood Cells % 0 % (-); Platelet Count 233 10^3/uL (130-400); Red Cell Dist. Width 14.3 % (11.5-14.5)
[2024-12-04 05:33] LABS: INR 1.04; PT 13.9 Sec (11.4-14.6)
[2024-12-04 05:35] LABS: APTT 110.0 Sec (23.4-35.0)
[2024-12-04] MEDS: STRIVERDI RESPIMAT 2 PUFF INH (05:38)
[2024-12-04 05:45] LABS: ALT (SGPT) 20 U/L (0-50); AST (SGOT) 20 U/L (17-59); Albumin 3.8 g/dl (3.5-5.0); Alkaline Phosphatase 44 U/L (38-126); Blood Urea Nitrogen 17 mg/dl (9-20); Calcium 9.4 mg/dl (8.4-10.2); Carbon Dioxide 26 mmol/L (22-30); Chloride 110 mmol/L (98-107); Estimated Creatinine Clearance 76 ml/min; Glucose 96 mg/dl (70-99); Potassium 3.7 mmol/L (3.5-5.1); Sodium 140 mmol/L (135-145); Total Protein 6.3 g/dl (6.3-8.2); eGFR > 60.00
[2024-12-04 05:51] LABS: B.E. 1.7 mmol/L; HCO3 25.8 mmol/L (21-28); O2 Saturation % 95.6 % (94-98); PCO2 38 mmHg (35-48); PO2 76 mmHg (83-108)
[2024-12-04 07:14] LABS: Glucose - Point of Care 112 mg/dl (70-99)
--- NOTE | 2024-12-04 08:21 | W.PN.UPDATE ---
Update Note
Progress Note Update
STS RISK SCORE
Procedure Type:�Isolated CABG
Perioperative Outcome Estimate %
Operative Mortality 1.61%
Morbidity & Mortality 5.38%
Stroke 0.853%
Renal Failure 0.716%
Reoperation 2.07%
Prolonged Ventilation 2.81%
Deep Sternal Wound Infection 0.125%
Long Hospital Stay (>14 days) 3.36%
Short Hospital Stay (<6 days)* 52.8%
Clinical Summary
Planned Surgery: Isolated CABG, Urgent, First cardiovascular surgery
Demographics: 79 year old, male, 67kg, 165cm, BMI: 24.6 kg/m�
Lab Values: Creatinine: 0.7 mg/dL, Hematocrit: 37.6%, WBC Count: 9.8 10�/�L, Platelet Count: 027102 cells/�L
Substance Abuse: Former smoker
Risk Factors / Comorbidities: Diabetes Mellitus , Hypertension, Family Hx of CAD
Pulmonary RF: Mild CLD
Cardiac Status: NYHA Class II, Ejection Fraction = 57%
Coronary Artery Disease: 2 vessels diseased, Left Main Stenosis >=50%, Proximal LAD Stenosis >=70%, Non-ST Elevation SD, SD: 1 to 7 Days
Valve Disease: Trivial/Trace MR, Trivial/Trace TR
[2024-12-04] MEDS: ASPIR LOW (ENTERIC COATED) 81 MG PO (08:58)
[2024-12-04] MEDS: LOPRESSOR 12.5 MG PO ×2 (08:58→20:50)
--- NOTE | 2024-12-04 10:18 | W.PN.CD ---
Addendum entered and electronically signed by Jalil Duke MD 12/04/24 14:24:
I saw and examined the patient.
The TRANSPORT ASSISTANT's note was reviewed and I agree with the note.
Comment: See my note as well.
Original Note:
Today's Communication / Plan
-
Lisinopril on hold for upcoming CABG
Continue metoprolol tartrate.
Impression / Plan
-
Impression/Plan: 79-year-old male with hypertension, NIDDM (treated with tirzepatide; which he stopped 2 weeks ago), obesity, COPD (former smoker of 2 PPD x 40 years; quit 18 years ago), and prostate cancer admitted with NSTEMI.
#NSTEMI.
# CAD
-Acute, threat to life.
-Significant ST/T wave abnormality on his initial EKG ([address] depression, 1.[address] elevation in aVR), which improved on subsequent EKG with resolution of chest pain.
-Troponin peaked at 0.656.
-Echocardiogram shows preserved systolic function. LVEF 55-60%.
-Cardiac catheterization lead to CT surgery consult for CABG
-CABG tentatively tomorrow
- LDL yesterday 100, goal <70, ideally less than 55, atorvastatin 40 mg is new
#Hypertension:
-Chronic, stable.
-Lisinopril 10 mg daily on hold for CABG
-Continue metoprolol tartrate 12.5 mg twice daily.
#NIDDM2:
-Chronic, stable.
-Hemoglobin A1c = 5.2%.
-Patient states that he was on tirzepatide for a few years; stopped it 2 weeks ago because he thinks he is 'cured'.
Prostate cancer, using a homeopathic regimen
#Overweight, BMI 24
Subjective/Interval History:
Chest pain free. No shortness of breath.
DATA:
CTPE, 12/01/2024:
IMPRESSION:
1. No evidence of central or segmental pulmonary embolism.
2. There are opacities within the bilateral lower lobe secondary to represent atelectasis.
3. 2.5 cm heterogeneous nodule within the posterior right hemithyroid. Recommend nonemergent thyroid ultrasound for further evaluation. Given slightly increased size from prior examination.
4. Prominent retroperitoneal lymph nodes, similar to recent prior PET and consistent with known malignancy.
TTE, 12/02/2024:
CONCLUSIONS
Estimated left ventricular ejection fraction is 55-60%. Normal regional wall
motion.
Normal right ventricular size and function.
No significant valvular disease.
No significant change since the prior study of 07/13/2016.
Physical Exam
Vital Signs/Labs
Vital Signs
Temp Pulse Resp BP Pulse Ox
97.7 F 68 18 109/48 94
12/04/24 07:22 12/04/24 05:45 12/04/24 07:22 12/04/24 04:46 12/04/24 07:22
12/03/24 12/04/24 12/05/24
06:59 06:59 06:59
Actual Weight 65.7 kg
12/04/24 05:02
12/04/24 05:02
PT 13.9 Sec (11.4-14.6) 12/04/24 05:02
INR 1.04 12/04/24 05:02
APTT Cancelled 12/04/24 05:05
Magnesium 2.0 mg/dl (1.6-2.3) 12/02/24 03:15
Triglycerides 275 mg/dl (10-149) H 12/03/24 02:26
LDL Cholesterol, Calc 100 mg/dl 12/03/24 02:26
VLDL Cholesterol, Calc 55 mg/dl (0-30) H 12/03/24 02:26
HDL Cholesterol 32 mg/dl 12/03/24 02:26
TSH 1.80 uIU/ml (0.47-4.68) 12/03/24 02:26
12/01/24
20:52
Aps-M-Kjsyjqnoapa Pept 282
LAB Results
12/01/24 12/02/24 12/02/24
20:52 03:15 09:37
Troponin I 0.066 H* 0.656 H* D 0.582 H*
12/02/24
12:46
Troponin I 0.474 H*
Physical Exam
Constitutional: No acute distress and Comfortable
EENT: Anicteric and Moist mucous membranes
Cardiovascular: Rhythm & rate is regular and Pedal edema is absent
Respiratory: Respiratory effort normal and Lungs clear to auscul.
GI: Soft, Distention absent, Flat, Non tender and Normal bowel sounds
Neuro/Psych: AO x 3
Other: Skin (Warm and dry without edema) and Cath Site (Dressing clean dry and intact. No hematoma.)
Data Reviewed
-
Date of Service: December 04, 2024
Echo: Report Reviewed by me
Labs: Labs Reviewed by me
Old Records: Reviewed
[2024-12-04] MEDS: ROBITUSSIN 400 MG PO (10:22)
[2024-12-04] MEDS: HEPARIN 25000 UNITS/250 ML IV (11:49)
[2024-12-04 12:02] LABS: APTT 147.3 Sec (23.4-35.0)
[2024-12-04 12:21] LABS: Urine Character Clear (Clear)
--- NOTE | 2024-12-04 12:29 | CM ---
Reviewed chart.. Met with Mr. Centeno to review discharge plans. Prior to admission he resides with his two daughters age 18 and 16 in a one story home with a full flight of steps to enter. Prior to admission he was independent with ambulation and
adls. He states he has home 02 that he uses as prn. He states [employer] supplies his home 02. He has a prescription plan and uses [facility]. He states his 16 year old daughter will be home. Medical work-up in progress. The discharge plan
is to return home with his daughter and a home visit by the Transitional Care Nurse when medically stable.
We reviewed pre-op and post-op routines. We briefly reviewed the shower instructions. Gave him the Cardiothoracic Surgery Educational Booklet. We reviewed restrictions including sternal precautions and driving restrictions. We also discussed a
home visit by the Transitional Care Nurse. He is agreeable to a home visit. The plan is for CABG on Tuesday12/04/24.
--- NOTE | 2024-12-04 12:51 | W.PN.HOSP.TC ---
Today's Communication/Plan
-
monitor vitals
see plan
CT surgery evaluation
Continue with metoprolol
Assessment / Plan
Assessment / Plan
General: No Apparent Distress
HEENT: PERRLA
Respiratory: Clear; No Wheezes
Cardiac: S1/S2 and Regular Rhythm
GI: Soft and Non Tender
Musculoskeletal: No Edema
Skin: Warm and Dry; No Rash
Neuro: AO x 3
Psych: Calm
NSTEMI
-significant ST depressions on initial EKG. Case was discussed with Dr. Li. Patient received IV Lopressor, Nitro and started on a heparin gtt. With resolution of pain, repeat EKG improved
-Asa 81mg PO QD; Lipitor 40mg PO qhs
Heparin drip
Echo 12/02 with preserved EF
Status post cardiac catheterization 12/03, multivessel disease. CT surgery involved. Possible CABG 12/05
Continue metoprolol
Lisinopril held for OR
Cardiology following
Troponin noted
LDL 100,A1c 5.2
Essential HTN
Holding lisinopril per CT surgery for OR
cw metoprolol
prostate CA
-patient treats with homeopathic medications
Abnormal Thyroid nodule on CT Chest
-nonurgent follow up with thyroid US
DM
-not on medications
-ISS low
A1c 5.2
COPD
-[employer] Stiolto
on prn home o2
DVT PPx Heparin gtt
FULL CODE
Anticipated Discharge: > 48 hours
Subjective/Interval History
-
Date of Service: December 04, 2024
Denies chest pain
Objective Data
-
Labs:
Laboratory Results
12/04/24 12/04/24 12/04/24
05:02 05:05 05:37
WBC 9.8
Hgb 12.9 L
Hct 37.6 L
Plt Count 233
PT 13.9
INR 1.04
APTT 110.0 H Cancelled
HCO3 25.8
Sodium 140
Potassium 3.7
Chloride 110 H
Carbon Dioxide 26
BUN 17
Creatinine 0.7
Glucose 96
Calcium 9.4
Total Bilirubin 0.5
AST 20
ALT 20
Alkaline Phosphatase 44
12/04/24 12/04/24
11:36 18:15
WBC
Hgb
Hct
Plt Count
PT
INR
APTT 147.3 H Pending
HCO3
Sodium
Potassium
Chloride
Carbon Dioxide
BUN
Creatinine
Glucose
Calcium
Total Bilirubin
AST
ALT
Alkaline Phosphatase
Vital Signs:
Vital Signs
Temp Pulse Resp BP Pulse Ox
97.5 F 74 18 113/57 95
12/04/24 11:41 12/04/24 11:41 12/04/24 11:41 12/04/24 11:41 12/04/24 11:41
I&O
12/03/24 12/04/24 12/05/24
06:59 06:59 06:59
Intake Total 580 / 580
Output Total 1300 / 1300 275 / 275
Balance -720 / -720 -275 / -275
--- NOTE | 2024-12-04 13:12 | PTCARENOTE ---
Pt denies pain , offers no complaints. He is ambulating in room. UA specimen sent.
[2024-12-04 14:03] LABS: Glucose - Point of Care 132 mg/dl (70-99)
--- NOTE | 2024-12-04 14:18 | W.PN.CD ---
Today's Communication / Plan
-
Planning for CABG
Needs to stay in house for CABG
Impression / Plan
-
Impression/Plan: 79-year-old male with hypertension, NIDDM (treated with tirzepatide; which he stopped 2 weeks ago), obesity, COPD (former smoker of 2 PPD x 40 years; quit 18 years ago), and prostate cancer admitted with NSTEMI.
#NSTEMI.
# CAD
- 90% LEFT MAIN CAD
-Acute,
-Significant ST/T wave abnormality on his initial EKG ([address] depression, 1.[address] elevation in aVR), which improved on subsequent EKG with resolution of chest pain.
-Troponin peaked at 0.656.
-Echocardiogram shows preserved systolic function. LVEF 55-60%.
-Cardiac catheterization lead to CT surgery consult for CABG
-CABG tentatively tomorrow
- LDL yesterday 100, goal <70, ideally less than 55, atorvastatin 40 mg is new
#Hypertension:
-Chronic, stable.
-Lisinopril 10 mg daily on hold for CABG
-Continue metoprolol tartrate 12.5 mg twice daily.
#NIDDM2:
-Chronic, stable.
-Hemoglobin A1c = 5.2%.
-Patient states that he was on tirzepatide for a few years; stopped it 2 weeks ago because he thinks he is 'cured'.
Prostate cancer, using a homeopathic regimen
#Overweight, BMI 24
Subjective/Interval History:
Chest pain free. No shortness of breath.
DATA:
Cath 12/03/2024:
CONCLUSIONS
1. Right dominant circulation with a 90% lesion in the ostium of the RCA, a 50% lesion in the distal aspect of the proximal RCA, a 50% lesion in the mid RCA, a 50-60% lesion in the distal RCA immediately after the crux, and 90% lesion in the distal
margin of the left main coronary artery, a 40% lesion in the proximal LAD, a 40% lesion in between D1 and D2 and a 60-70% lesion immediately distal D2 as well as a 40% lesion in the mid circumflex extending into the proximal margin of OM 2.
2. Transient hypotension with LVEDP of 10 mmHg. Hypotension resolved with fluid bolus.
CTPE, 12/01/2024:
IMPRESSION:
1. No evidence of central or segmental pulmonary embolism.
2. There are opacities within the bilateral lower lobe secondary to represent atelectasis.
3. 2.5 cm heterogeneous nodule within the posterior right hemithyroid. Recommend nonemergent thyroid ultrasound for further evaluation. Given slightly increased size from prior examination.
4. Prominent retroperitoneal lymph nodes, similar to recent prior PET and consistent with known malignancy.
TTE, 12/02/2024:
CONCLUSIONS
Estimated left ventricular ejection fraction is 55-60%. Normal regional wall
motion.
Normal right ventricular size and function.
No significant valvular disease.
No significant change since the prior study of 07/13/2016.
Physical Exam
Vital Signs/Labs
Vital Signs
Temp Pulse Resp BP Pulse Ox
97.5 F 83 18 113/57 95
12/04/24 11:41 12/04/24 14:00 12/04/24 11:41 12/04/24 11:41 12/04/24 11:41
12/03/24 12/04/24 12/05/24
06:59 06:59 06:59
Actual Weight 65.7 kg
12/04/24 05:02
12/04/24 05:02
PT 13.9 Sec (11.4-14.6) 12/04/24 05:02
INR 1.04 12/04/24 05:02
APTT 147.3 Sec (23.4-35.0) H 12/04/24 11:36
Magnesium 2.0 mg/dl (1.6-2.3) 12/02/24 03:15
Triglycerides 275 mg/dl (10-149) H 12/03/24 02:26
LDL Cholesterol, Calc 100 mg/dl 12/03/24 02:26
VLDL Cholesterol, Calc 55 mg/dl (0-30) H 12/03/24 02:26
HDL Cholesterol 32 mg/dl 12/03/24 02:26
TSH 1.80 uIU/ml (0.47-4.68) 12/03/24 02:26
12/01/24
20:52
Xhw-J-Crzajripiuv Pept 282
LAB Results
12/01/24 12/02/24 12/02/24
20:52 03:15 09:37
Troponin I 0.066 H* 0.656 H* D 0.582 H*
12/02/24
12:46
Troponin I 0.474 H*
Physical Exam
Constitutional: No acute distress
EENT: Anicteric
Cardiovascular: Rhythm & rate is regular and Pedal edema is absent
Respiratory: Respiratory effort normal and Lungs clear to auscul.
GI: Soft and Distention absent
Neuro/Psych: AO x 3
Other: Cath Site (normal radial artery site)
Data Reviewed
-
Date of Service: December 04, 2024
[2024-12-04 18:05] LABS: Glucose - Point of Care 86 mg/dl (70-99)
[2024-12-04] MEDS: LIPITOR 40 MG PO (18:08)
[2024-12-04 18:43] LABS: APTT 107.5 Sec (23.4-35.0)
--- NOTE | 2024-12-04 20:00 | PTCARENOTE ---
Received patient as transfer from IVU at change of shift. AOx3, MOSQUEDA, no pain at this time. SR on the monitor, rates 60's, VSS, heart tones audible, no edema, + pulses, no chest pain. Lungs clear on 1LNC, SpO2 adequate on RA. Abdomen benign, ate
dinner p/t transfer, no n/v. Voiding into urinal frequently, h/o BPH discussed. Patient ambulated to the bathroom with stand-by assistance to have a BM, no symptoms or CP. Heparin gtt continued. Patient clipped in a surgical fashion in preparation
for procedure tomorrow. NPO at midnight status discussed, patient indicated understanding. CHG full bed bath performed and linens changed. Assessment of needs ongoing.
[2024-12-04 22:39] LABS: Glucose - Point of Care 104 mg/dl (70-99)
[2024-12-05] VITALS (16 sets, daily range): BP systolic 58–125; BP diastolic 45–81; BMI 23.9
--- NOTE | 2024-12-05 00:45 | PTCARENOTE ---
Patient sleeping between care. VSS, no needs expressed at this time. PTT drawn and sent
[2024-12-05 01:21] LABS: APTT 100.0 Sec (23.4-35.0)
--- NOTE | 2024-12-05 04:00 | PTCARENOTE ---
No issues, patient sleeping between care, using urinal, VSS.
[2024-12-05 04:48] LABS: Hematocrit 37.8 % (39.0-52.0); Hemoglobin 13.2 g/dL (13.0-18.0); Mean Corp Hgb Conc. 34.9 g/dL (33.0-37.0); Mean Corpuscular Volume 86.1 fL (80.0-94.0); Nucleated Red Blood Cells % 0 % (-); Platelet Count 231 10^3/uL (130-400); Red Cell Dist. Width 14.2 % (11.5-14.5)
[2024-12-05 05:21] LABS: Blood Urea Nitrogen 14 mg/dl (9-20); Calcium 9.3 mg/dl (8.4-10.2); Carbon Dioxide 25 mmol/L (22-30); Chloride 109 mmol/L (98-107); Estimated Creatinine Clearance 76 ml/min; Glucose 96 mg/dl (70-99); Potassium 3.6 mmol/L (3.5-5.1); Sodium 140 mmol/L (135-145); eGFR > 60.00
--- NOTE | 2024-12-05 07:13 | W.PN.CD ---
Today's Communication / Plan
-
Guiafenesin.
CABG.
Impression / Plan
-
Impression/Plan: 79-year-old male with hypertension, NIDDM (treated with tirzepatide; which he stopped 2 weeks ago), obesity, COPD (former smoker of 2 PPD x 40 years; quit 18 years ago), and prostate cancer admitted with NSTEMI.
#NSTEMI/CAD
-Acute, threat to life.
-Significant ST/T wave abnormality on his initial EKG ([address] depression, 1.[address] elevation in aVR), which improved on subsequent EKG with resolution of chest pain.
-Troponin peaked at 0.656.
-Echocardiogram shows preserved systolic function. LVEF 55-60%.
-Cardiac catheterization shows 90% ostial RCA, 90% distal LMCA, prompting CT surgery consult for CABG.
-CABG planned for this afternoon.
#COPD
-Chronic, stable, moderate.
-Continue inhaled bronchodilators.
-Patient asking for guaifenesin (improves his cough).
#Hypertension:
-Chronic, stable.
-Lisinopril 10 mg daily on hold for CABG
-Continue metoprolol tartrate 12.5 mg twice daily.
#NIDDM2:
-Chronic, stable.
-Hemoglobin A1c = 5.2%.
-Patient states that he was on tirzepatide for a few years; stopped it 2 weeks ago because he thinks he is 'cured'.
#Prostate cancer
-Chronic.
-Currently using a homeopathic regimen.
#Overweight, BMI 24
Subjective/Interval History:
Weight stable.
Feels well.
Plan for surgery this afternoon.
DATA:
Cath 12/03/2024:
CONCLUSIONS
1. Right dominant circulation with a 90% lesion in the ostium of the RCA, a 50% lesion in the distal aspect of the proximal RCA, a 50% lesion in the mid RCA, a 50-60% lesion in the distal RCA immediately after the crux, and 90% lesion in the distal
margin of the left main coronary artery, a 40% lesion in the proximal LAD, a 40% lesion in between D1 and D2 and a 60-70% lesion immediately distal D2 as well as a 40% lesion in the mid circumflex extending into the proximal margin of OM 2.
2. Transient hypotension with LVEDP of 10 mmHg. Hypotension resolved with fluid bolus.
CTPE, 12/01/2024:
IMPRESSION:
1. No evidence of central or segmental pulmonary embolism.
2. There are opacities within the bilateral lower lobe secondary to represent atelectasis.
3. 2.5 cm heterogeneous nodule within the posterior right hemithyroid. Recommend nonemergent thyroid ultrasound for further evaluation. Given slightly increased size from prior examination.
4. Prominent retroperitoneal lymph nodes, similar to recent prior PET and consistent with known malignancy.
TTE, 12/02/2024:
CONCLUSIONS
Estimated left ventricular ejection fraction is 55-60%. Normal regional wall
motion.
Normal right ventricular size and function.
No significant valvular disease.
No significant change since the prior study of 07/13/2016.
PFT's, 12/04/2024:
Physical Exam
Vital Signs/Labs
Vital Signs
Temp Pulse Resp BP Pulse Ox
36.6 C 76 18 125/81 93
12/05/24 04:20 12/05/24 07:00 12/05/24 04:20 12/05/24 06:06 12/05/24 04:23
12/03/24 12/04/24 12/05/24
11:59 11:59 11:59
Actual Weight 65.7 kg 65.2 kg
12/05/24 04:25
12/05/24 04:25
PT 13.9 Sec (11.4-14.6) 12/04/24 05:02
INR 1.04 12/04/24 05:02
APTT 100.0 Sec (23.4-35.0) H 12/05/24 00:51
Magnesium 2.0 mg/dl (1.6-2.3) 12/02/24 03:15
Triglycerides 275 mg/dl (10-149) H 12/03/24 02:26
LDL Cholesterol, Calc 100 mg/dl 12/03/24 02:26
VLDL Cholesterol, Calc 55 mg/dl (0-30) H 12/03/24 02:26
HDL Cholesterol 32 mg/dl 12/03/24 02:26
TSH 1.80 uIU/ml (0.47-4.68) 12/03/24 02:26
12/01/24
20:52
Abr-D-Uanqtjjjqfr Pept 282
LAB Results
12/02/24 12/02/24
09:37 12:46
Troponin I 0.582 H* 0.474 H*
Physical Exam
Constitutional: No acute distress and Comfortable
EENT: Anicteric and Moist mucous membranes
Cardiovascular: Rhythm & rate is regular, Pedal edema is absent, JVD pressure is normal, S1S2 is normal and Murmur/rub/gallop absent
Respiratory: Respiratory effort normal, Lungs clear to auscul., Wheeze Absent, Crackles Absent and Rhonchi Absent
GI: Soft, Distention absent, Flat, Non tender and Normal bowel sounds
Neuro/Psych: AO x 3
Other: Cath Site (Right radial access site is C/D/I.)
Data Reviewed
-
Date of Service: December 05, 2024
Medical Decision Making: Reviewed Test Results, Independent Historian Assessment and Test Interpretation
EKG: Tracing Personally Visualized and interpreted and Report Reviewed by me
Echo: Tracing Personally Visualized and interpreted and Report Reviewed by me
X-Ray/CT/US/MRI/NUC/PET: Image Personally Visualized and interpreted and Report Reviewed by me
Medical Tests (PFT, Pathology etc): Image Personally Visualized and interpreted, Report Reviewed by me, Discussed with Physician and Discussed with Patient
Labs: Labs Reviewed by me
Old Records: Reviewed
[2024-12-05] MEDS: STRIVERDI RESPIMAT 2 PUFF INH (08:08)
[2024-12-05] MEDS: XYLOCAINE 1% 3 ML INFIL (08:09)
--- NOTE | 2024-12-05 08:19 | W.PN.HOSP.TC ---
Today's Communication/Plan
-
Monitor vital signs
see plan
OR today for CABG
Postop patient will be transferred to CT surgery service
Medicine will sign off, please call us with any questions
Assessment / Plan
Assessment / Plan
General: No Apparent Distress
HEENT: PERRLA
Respiratory: Clear; No Wheezes
Cardiac: S1/S2 and Regular Rhythm
GI: Soft and Non Tender
Musculoskeletal: No Edema
Skin: Warm and Dry; No Rash
Neuro: AO x 3
Psych: Calm
NSTEMI
-significant ST depressions on initial EKG. Case was discussed with Dr. Li. Patient received IV Lopressor, Nitro and started on a heparin gtt. With resolution of pain, repeat EKG improved
-Asa 81mg PO QD; Lipitor 40mg PO qhs
Heparin drip per CT surgery
Echo 12/02 with preserved EF
Status post cardiac catheterization 12/03, multivessel disease. CT surgery involved. Possible CABG 12/05
Continue metoprolol
Lisinopril held for OR
Cardiology following
Troponin noted
LDL 100,A1c 5.2
Essential HTN
Holding lisinopril per CT surgery for OR
metoprolol
prostate CA
-patient treats with homeopathic medications
Abnormal Thyroid nodule on CT Chest
-nonurgent follow up with thyroid US
DM
-not on medications
-ISS low
A1c 5.2
COPD
-[employer] Stiolto
on prn home o2
DVT PPx
FULL CODE
Anticipated Discharge: > 48 hours
Subjective/Interval History
-
Date of Service: December 05, 2024
Denies chest pain
Objective Data
-
Labs:
Laboratory Results
12/05/24 12/05/24 12/05/24
00:51 04:25 07:00
WBC 9.0
Hgb 13.2
Hct 37.8 L
Plt Count 231
APTT 100.0 H Pending
Sodium 140
Potassium 3.6
Chloride 109 H
Carbon Dioxide 25
BUN 14
Creatinine 0.7
Glucose 96
Calcium 9.3
Vital Signs:
Vital Signs
Temp Pulse Resp BP Pulse Ox
98.9 F 86 16 103/66 96
12/05/24 07:49 12/05/24 08:09 12/05/24 08:09 12/05/24 07:49 12/05/24 07:49
I&O
12/04/24 12/05/24 12/06/24
06:59 06:59 06:59
Intake Total
Output Total 275 / 275 780 / 780
Balance -275 / -275 -780 / -780
--- NOTE | 2024-12-05 09:18 | PTCARENOTE ---
assumed care of pt from previous shift RN, sinus rhythm on tele, VSS, heparin gtt maintained pre op.
[2024-12-05] MEDS: ROBITUSSIN PO (09:38)
[2024-12-05] MEDS: LOPRESSOR PO (09:40)
[2024-12-05] MEDS: ASPIR LOW (ENTERIC COATED) PO (09:41)
[2024-12-05] MEDS: LOPRESSOR 25 MG PO (09:50)
[2024-12-05] MEDS: MUCINEX 600 MG PO (09:50)
[2024-12-05] MEDS: MAGNESIUM OXIDE 500 MG PO (09:50)
[2024-12-05] MEDS: PROTONIX 40 MG PO (09:50)
[2024-12-05] MEDS: BACTROBAN 2% OINTMENT 1 APPLIC NASAL ×2 (09:50→20:31)
--- NOTE | 2024-12-05 10:43 | CM ---
Chart reviewed. Patient is in the OR today. Patient is independent of ADLS, lives with his daughters who is 18 and 16, in a 1 [address]TH, full flight of stairs to access, patient wears Home O2 PRN. Plan is for the patient to return home with CT
Transitional RN. CM to follow
--- NOTE | 2024-12-05 11:10 | PTCARENOTE ---
pt sent to or.
--- NOTE | 2024-12-05 11:27 | W.CVOR.SURPR ---
CVOR Surgeon Immed Pre Op
-
I have examined this patient prior to performance of the scheduled procedure.
The patient's condition is unchanged from the time of the dictated/written History and
Physical and the patient is able to undergo the scheduled procedure.
CABG
[2024-12-05 11:59] LABS: Urine Character Clear (Clear)
[2024-12-05 12:17] LABS: ACT+ - POC 118 Seconds (82-134)
[2024-12-05 13:46] LABS: B.E. - POC 0.0 mmol/L; Glucose - POC 101 mg/dl (70-99); HCO3 - POC 24 mmol/L (21-28); Hematocrit - POC 33 % PCV (42-52); Hemodilution- POC No; Hemoglobin Calculated - POC 11.2; Ionized Calcium - POC 1.15 mmol/L (1.15-1.33); Lactate - POC 0.60 mmol/L (0.36-0.75); O2 Saturation %Calculated-POC 99.6 % (94-98); PCO2 - POC 38 mmHg (35-48); PO2 - POC 183 mmHg (83-108); POC Comment PRE; Potassium - POC 3.2 mmol/L (3.5-5.1); Sodium - POC 140 mmol/L (136-145); Specimen Type - POC Arterial; pH - POC 7.42 (7.35-7.45)
[2024-12-05 13:56] LABS: ACT+ - POC 559 Seconds (82-134)
[2024-12-05 14:28] LABS: ACT+ - POC 515 Seconds (82-134)
[2024-12-05 15:04] LABS: Urine Squamous Cell 0-2 /LPF (Few)
[2024-12-05 15:06] LABS: Urine White Cell 0-2 /HPF (0-5)
[2024-12-05 15:09] LABS: ACT+ - POC 468 Seconds (82-134)
[2024-12-05 15:14] LABS: B.E. - POC 1.9 mmol/L; Glucose - POC 143 mg/dl (70-99); HCO3 - POC 27 mmol/L (21-28); Hematocrit - POC 28 % PCV (42-52); Hemodilution- POC Yes; Hemoglobin Calculated - POC 9.6; Ionized Calcium - POC 0.94 mmol/L (1.15-1.33); Lactate - POC < 0.30 mmol/L (0.36-0.75); O2 Saturation %Calculated-POC 100.0 % (94-98); PCO2 - POC 43 mmHg (35-48); PO2 - POC 458 mmHg (83-108); Potassium - POC 5.4 mmol/L (3.5-5.1); Sodium - POC 139 mmol/L (136-145); Specimen Type - POC Arterial; pH - POC 7.41 (7.35-7.45)
[2024-12-05 15:28] LABS: ACT+ - POC 126 Seconds (82-134)
[2024-12-05 15:49] LABS: B.E. - POC -1.5 mmol/L; Glucose - POC 191 mg/dl (70-99); HCO3 - POC 24 mmol/L (21-28); Hematocrit - POC 26 % PCV (42-52); Hemodilution- POC Yes; Hemoglobin Calculated - POC 8.7; Ionized Calcium - POC 1.20 mmol/L (1.15-1.33); Lactate - POC 0.37 mmol/L (0.36-0.75); O2 Saturation %Calculated-POC 99.9 % (94-98); PCO2 - POC 41 mmHg (35-48); PO2 - POC 363 mmHg (83-108); Potassium - POC 4.5 mmol/L (3.5-5.1); Sodium - POC 140 mmol/L (136-145); Specimen Type - POC Arterial; pH - POC 7.37 (7.35-7.45)
--- NOTE | 2024-12-05 15:55 | W.PN.CT.SURG ---
CT Surgery Operative Note
-
CARDIAC SURGERY OPERATIVE REPORT
Preoperative Diagnosis: Multivessel Coronary Artery Disease with NSTEMI
Postoperative Diagnosis: Same
Procedure(s) Performed:
1. Standard Sternotomy with Aortic and Right Atrial Cannulation
2. Bilateral Internal Mammary Artery Harvesting, In Situ PETE and Free HOWARD
3. Multi Arterial Coronary artery bypass grafting x 3 (In situ PETE to LAD, HOWARD Y off PETE to OM, Ao to RSVG to RPDA)
4. Endoscopic vein harvesting of RLE and LLE
5. Transesophageal echocardiography
6. Placement of Temporary Atrial and Ventricular Pacing Wires
7. Ligation of Left Atrial Appendage
Date of Surgery: 12/05/24
Comorbidities:
1. NSTEMI
2. Multi-Arterial Coronary Disease
3. HTN
4. HLD
5. 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
6. Asthma
Attending Surgeon: Itz Tao MD, MS
Assistants: Gonzales Barajas, PGY-2 (Cardiac Surgery Resident) and CHAYITO Mobley (present and necessary to accounting manager assistant controller, endoscopic vein harvest, retraction, suction, exposure, suture management, and wound closure under my direction), Ladi Hoffman PA-C (endo
vein harvest)
Anesthesiology: Tom Renee MD and Mary Pradhan CRNA
Scrub and Circulating RNs: Ellie Mancini RN, Cecile Leo RN
Ict Managers: Mihir Valdez CCP
Anesthesia: GETA
EBL: per perfusion records
Products: None
CPB Time: 76 minutes
Aortic Cross Clamp Time: 65 minutes
Indication(s) for Procedures: This is a 79-year-old male presents the hospital due to NSTEMI. He is found to have multivessel coronary disease on left heart cath and was offered surgical revascularization.
Conduit(s) Quality:
PETE - Excellent quality, skeletonized
HOWARD - Excellent quality, skeletonized and taken as a free graft
RSVG - Marginal first segment, the second vein from the L thigh was better and used for the RPDA graft
Target(s) Quality:
RCA/PDA - good, decent size target, flowprobe with mean flow of 30cc/min and PI of 2.8
OM - Good, large size target, HOWARD was grafted here as a Y off the PETE, mean flow of 34cc/min with a PI of 2.8
LAD - Good, decent size target, the PETE was grafted here, the flow down the main pete was 31cc/min with a PI of 1.5, the segment after the HOWARD Y had a mean flow of 12.6cc/min with a PI of 3.4
Findings: His left ventricular ejection fraction preoperatively was 60% with no significant regional wall motion abnormalities. Following surgery his EF remained the same at 60% with no new regional wall motion abnormalities. He had baseline mild
mitral valve insufficiency that remained the same and looked slightly better after surgery.. The PETE was harvested in a skeletonized fashion. Due to poor vein conduit from the RLE, I opted to take a free HOWARD graft to bypass the OM which had a
tight enough lesion proximally. The only usable segment of vein from the left thigh was used to bypass the RPDA. Following bypass grafting, test dose cardioplegia was given down each distal and confirmed patency and hemostasis. He did not require
inotropes after coming off bypass. He did not require blood products. He was in sinus rhythm after a short period of VVI pacing, which likely resulted in an R on T phenomenon intraop that required defibrillation with a single shock along with
lidocaine.
Description of Procedure: The patient was taken to the operating room. Their identity and procedure to be performed were verified and they were positioned supine on the operating table. Induction via general anesthesia with endotracheal intubation
was performed and central venous access and arterial monitoring were inserted. A preoperative transesophageal echocardiogram was performed to assess cardiac function and valvular function. The patient was then prepped and draped from chin to feet in
a sterile fashion. A preoperative time-out was performed with all members of the team present. A midline chest incision was performed along with median sternotomy. Simultaneous endoscopic access of the right lower extremity for saphenous vein
harvest was obtained along with administration of an initial 5,000 units of IV heparin. A RulTract sternal retractor was positioned to exposure the left internal mammary bed. The mammary was harvested and found to have good flow. A bulldog clamp was
applied to the distal end of the mammary after dividing it. It was wrapped in a papaverine soaked RayTec and replaced back into the left hemithorax. The RulTract was exchanged for a median sternal retractor. The innominate vein was isolated. At this
point, the vein quality was poor from the right left, so I opted to weight an obtain more conduit from the left thigh. While this was occurring, I harvested the mid portion of the HOWARD as a free graft in order to bypass all the main targets. The
distal end of the HOWARD was ligated and cut, and it had excellent flow. The proximal end was ligated with two medium clips as well and then it was transected. Full heparinization was given (a total of 35,000 units). We created a pericardial well. The
aortic cannulation site was chosen where it was soft, pliable, and free of calcium. Cannulation was performed with an arterial cannula in the ascending aorta and a triple-stage venous cannula through the right atrial appendage. The arterial cannula
line had an appropriate bounce and correlating pressures with test dosing. Next, a root vent/antegrade cannula was inserted into the ascending aorta. The ACT was confirmed to be over 400 and retrograde autologous priming was performed before
commencing cardiopulmonary bypass. The pulmonary artery was away from the aorta to facilitate a clamp site. The aortic cross-clamp was placed after decreasing the flow on the bypass and mean arterial pressure. A total of 1.2L initial dose
of antegrade Del-Nido cardioplegia solution was given and planned for re-dosing every 75 minutes as necessary. There was rapid electro-mechanical arrest of the heart at 500 cc of cardioplegia. The left ventricle was observed for distention on
echocardiogram and manual palpation. Cold slush was placed into a sponge and topically on the RV while we systemically cooled to 34 degrees centigrade.
I positioned the heart to expose the distal right coronary at the posterior descending artery. A port heiden blade was used to expose the coronary and perform the arteriotomy. Coronary Stone scissors were used to enlarge the incision. The saphenous vein
was trimmed and beveled to an appropriate size. The distal anastomosis was performed using 7-0 prolene in an end-to-side fashion. Antegrade cardioplegia was administered into the graft. Appropriate hemostasis and flow were confirmed. The graft was
measured for length to the aorta and cut. A suitable site on the obtuse marginal was chosen. We dissected and prepared the distal target in a similar fashion. An end-to-side anastomosis was created with a 7-0 prolene using the HOWARD. Antegrade
cardioplegia was administered into the graft with an angiocath. Appropriate hemostasis and flow were confirmed. The graft was measured for to reach the PETE. A suitable target on the mid/distal left anterior descending was identified. We dissected
and prepared the distal target in a similar fashion. We retrieved the PETE from the chest and created a pericardial opening while being cognizant of the phrenic nerve to facilitate the course of the mammary. The distal end of the mammary was prepped
and beveled to size. We verified orientation and length of the NANY and found brisk flow. An end-to-side anastomosis was created with a 7-0 prolene. We temporarily released the bulldog clamp on the mammary to inspect flow. Perfusion to the LAD
territory was visualized and hemostasis was confirmed. Next, the bull dog was repositioned more proximally and a HOWARD-PETE Y anastomosis was performed with 7-0 prolene. I then released the bulled and verified flow into both territories visually. The
bull clamp was replaced on the mammary. The heart was filled and the root was distended with antegrade cardioplegia to make final assessment of graft length and orientation. We created 1 aortotomy using a #11 blade then a 4.0mm aortic punch. The
proximal anastomoses were created in an end-to-side fashion using 6-0 prolene. At the the same time, we re-warmed to 36.5 degrees centigrade. The bulldog clamp was removed from the mammary. Temporary bipolar ventricular pacing wires were placed on
the base of the right ventricle. The patient was placed in a Trendelenburg position and flows on bypass were lowered. The aortic cross clamp was removed and flows were slowly brought back up. A 30-gauge needle was used to de-air the vein grafts. All
bypass grafts were inspected and were free from kinking or twisting. The distal and proximal anastomoses appeared hemostatic. Once transesophageal echocardiography appeared satisfactory for de-airing, the flows were temporarily lowered for root
vent removal. After verifying acceptable parameters, we initiated weaning from cardiopulmonary bypass. Once we were off cardiopulmonary bypass, the venous cannula was clamped and removed. A test dose of protamine was administered and the patient was
monitored for any adverse reaction before resuming protamine. Once half of the protamine dose was delivered, pump suckers were turned off and the systolic blood pressure was lowered for aortic decannulation. The aortic cannula was removed and
pursestrings were tied down. All cannulation sites were oversewn with a 4-0 prolene. The mammary bed was inspected and hemostasis was confirmed. Once the mediastinum was hemostatic, 19Fr Papi drain was placed in the left and right pleural cavity
and two 24Fr Papi drains were placed within the pericardium. The sternum was approximated with 4 #7 single and 3 #8 double stainless steel wires. Fascia was approximated with #1 vicryl suture. The subcutaneous, dermis and epidermis were closed in
layers in a running fashion. The skin wound was cleansed and dressed.
All instrument, sponge, and needle counts were confirmed to be correct x 2 at the end of the operation. The patient was transferred to the cardiac intensive care unit in critical but stable condition.
I, Dr. Itz Tao, was present, scrubbed for, and performed all critical elements of this procedure.
Itz Tao MD, MS
Cardiothoracic Surgeon
[facility]
This operative dictation was created using the [employer] dictation system. Please excuse any grammatical, typographical, or 'sound alike' errors
[2024-12-05 16:40] LABS: Glucose - Point of Care 193 mg/dl (70-99)
[2024-12-05] MEDS: LR 250 ML IV ×3 (16:45→19:53)
[2024-12-05 16:52] LABS: B.E. -4.4 mmol/L; HCO3 22.1 mmol/L (21-28); O2 Saturation % 97.0 % (94-98); PCO2 46 mmHg (35-48); PO2 139 mmHg (83-108); Potassium 4.2 mMOL/L (3.5-5.1); Sodium 137 mMOL/L (136-145)
[2024-12-05] MEDS: CALCIUM CHLORIDE 10% SYRINGE 500 MG IV ×3 (16:55→17:09)
[2024-12-05 16:58] LABS: Hematocrit 28.4 % (39.0-52.0); Hemoglobin 9.6 g/dL (13.0-18.0); Platelet Count 205 10^3/uL (130-400)
[2024-12-05 17:06] LABS: APTT 32.9 Sec (23.4-35.0); Blood Urea Nitrogen 12 mg/dl (9-20); Estimated Creatinine Clearance 76 ml/min; Glucose 178 mg/dl (70-99); INR 1.30; Magnesium 2.9 mg/dl (1.6-2.3); PT 16.7 Sec (11.4-14.6)
[2024-12-05] MEDS: CALCIUM GLUCONATE 100 IV (17:06)
--- NOTE | 2024-12-05 17:15 | PTCARENOTE ---
received pt from the [facility]OR into 2263, sinus rhythm on tele w hr 80-90, epicardial pacing wire set to a backup of 50/10, left radial maxwell leveled and zeroed. PT hypotensive upon arrival, PRN doses of Ca administered as ordered along w LR bolus. Lungs
diminished, #8 ett/ 23cm at right lip, VENT SETTINGS: SIMV 40%/500/14/+5 PEEP, pox 94-95%. CTx4 w minimal amount of red drainage, starr draining yellow. Surgical sites stable. Post op labs, EKG and CXR completed. RASS -4, CPOT 0.
DRIPS: Precedex 0.5 mcg/kg/hr
Levophed 10 mcg/min
Insulin titrated per glycemic protocol
[2024-12-05] MEDS: ANCEF 10 IV ×2 (17:37)
[2024-12-05] MEDS: LIPITOR PO (17:38)
[2024-12-05] MEDS: NOVOLOG FLEXPEN SC (17:38)
[2024-12-05] MEDS: NSS 500 IV (17:38)
[2024-12-05] MEDS: PACERONE PO (17:38)
[2024-12-05] MEDS: TYLENOL PO ×2 (17:38→22:04)
[2024-12-05] MEDS: NEURONTIN PO ×2 (17:38→22:17)
[2024-12-05 17:48] LABS: Glucose - Point of Care 160 mg/dl (70-99)
--- NOTE | 2024-12-05 18:15 | PTCARENOTE ---
pt placed on cpap wean by RT
[2024-12-05] MEDS: SODIUM BICARBONATE 50 MEQ IV (18:21)
[2024-12-05] MEDS: ZOFRAN 4 MG IV (18:21)
[2024-12-05 18:49] LABS: B.E. - POC 6.2 mmol/L; Blood Urea Nitrogen - POC 12 mg/dl (3-120); Chloride - POC 105 mmol/L (96-111); Creatinine - POC 0.76 mg/dl (0.3-1.0); Glucose - POC 135 mg/dl (70-99); HCO3 - POC 32 mmol/L (21-28); Hematocrit - POC 29 % PCV (42-52); Hemodilution- POC No; Hemoglobin Calculated - POC 10.0; Ionized Calcium - POC 1.57 mmol/L (1.15-1.33); Lactate - POC 1.20 mmol/L (0.36-0.75); O2 Saturation %Calculated-POC 96.2 % (94-98); PCO2 - POC 51 mmHg (35-48); PO2 - POC 85 mmHg (83-108); Potassium - POC 3.8 mmol/L (3.5-5.1); Sodium - POC 145 mmol/L (136-145); Specimen Type - POC Arterial; pH - POC 7.41 (7.35-7.45)
[2024-12-05 18:49] LABS: Glucose - Point of Care 140 mg/dl (70-99)
[2024-12-05] MEDS: KCL 50 IV (19:06)
--- NOTE | 2024-12-05 19:12 | PTCARENOTE ---
abg results reviewed w CT NA, pt placed back on vent by RT
[2024-12-05 19:45] LABS: Glucose - Point of Care 122 mg/dl (70-99)
[2024-12-05] MEDS: OFIRMEV 100 IV (20:16)
[2024-12-05 20:22] LABS: B.E. 1.2 mmol/L; HCO3 26.6 mmol/L (21-28); O2 Saturation % 97.5 % (94-98); PCO2 45 mmHg (35-48); PO2 109 mmHg (83-108); Potassium 4.7 mMOL/L (3.5-5.1)
[2024-12-05 20:24] LABS: Hematocrit 28.3 % (39.0-52.0); Hemoglobin 9.9 g/dL (13.0-18.0); Platelet Count 244 10^3/uL (130-400)
[2024-12-05] MEDS: SENOKOT-S PO (20:32)
[2024-12-05] MEDS: MUCINEX PO (20:32)
--- NOTE | 2024-12-05 20:50 | PTCARENOTE ---
Assumed care of pt. Report received at bedside from DHEERAJ York. Pt received LR bolus, 250 mls, at 1900 for BP 88-90's systolic, CVP 5-6. Levo at 10 mcg/min. Kenroy PICKETT at bedside to see pt. Additional LR bolus ordered and given. BP responds well to
volume. BP up to 100's systolic. CVP up to 9-10. Pt in SR. Audible heart tones. Weak palpable pulses to B DP and B radials. V wire to pacer, backup rate 50, mA 10, sensitivity 0.8. Labs drawn per PA order. MVO2 74.3.
Pt sleepy while on vent. Will arouse to voice. Follows simple commands with equal strength. Nods appropriately to questions. PA with all lab results. Pt placed onto CPAP at 2044. Will obtain CPAP ABG at 2114.
Pt placed back at SIMV at shift change. Rate 14, TV 500, FiO2 40%. Peep 5, PS 5. Decreased B anterior and to bases. Sats 98%. CTs x 4, all to -20 cm suction. Belly soft, nontender. Hypoactive bs x 4. Rivera to drain, clear, yellow urine. Q1 hr
outputs for urine and CT outputs (and prn for CT outputs). Glycemic protocol followed.
Sister and father at bedside. Updated on ongoing status. Ongoing plan of care.
[2024-12-05 20:53] LABS: Glucose - Point of Care 122 mg/dl (70-99)
[2024-12-05] MEDS: LEVOPHED 250 IV (21:01)
[2024-12-05 21:27] LABS: B.E. 0.3 mmol/L; HCO3 25.4 mmol/L (21-28); O2 Saturation % 96.7 % (94-98); PCO2 42 mmHg (35-48); PO2 126 mmHg (83-108)
[2024-12-05] MEDS: LOW STRENGTH ASPIRIN 81 MG PO (22:17)
[2024-12-05] MEDS: ANCEF 5 IV (22:17)
[2024-12-05 23:02] LABS: Glucose - Point of Care 160 mg/dl (70-99)
[2024-12-05] MEDS: PACERONE 200 MG PO (23:17)
--- NOTE | 2024-12-05 23:30 | PTCARENOTE ---
Pt had CPAP trial at 2044. Breathing 12-16 br/min. No apneic periods. Spont ex TV 380-450 mls. Sats 98%. ABG drawn at 2114. PA with results. Extubated per provider order at 2144 to 6L/NC. ETT suction x 1 before extubation for thin, small,
whitish-clear sputum. Orally suctioned x 1 for small, clear saliva. No stridor, BBS present. Diminished yet clear. Sats remain 98% on 6L/NC. IS done with pt. IS peak 500-750 mls. No c/o dyspnea. Pt given CHG bath. new gown and leads applied. Pt
turned, back washed. Pt more awake. Speech clear. Follows commands x 4 with equal strength. R PIV d/c'ed due to leaking. Levo gtt currently at 7 mcg/min to maintain MAP > 65.
[2024-12-05 23:54] LABS: B.E. -0.4 mmol/L; HCO3 24.8 mmol/L (21-28); O2 Saturation % 97.4 % (94-98); PCO2 42 mmHg (35-48); PO2 128 mmHg (83-108); Potassium 4.3 mMOL/L (3.5-5.1)
[2024-12-06] VITALS (29 sets, daily range): BP systolic 85–126; BP diastolic 43–67; PULSE 93; O2SAT 97–98; BMI 25.1
[2024-12-06 01:20] LABS: Glucose - Point of Care 126 mg/dl (70-99)
[2024-12-06 02:18] LABS: Glucose - Point of Care 115 mg/dl (70-99)
[2024-12-06] MEDS: ALBUMIN 5% 250 IV ×2 (02:27→12:43)
--- NOTE | 2024-12-06 02:36 | PTCARENOTE ---
BP 80/40's, MAP 50's. CVP 4. Levo gtt increased to 7 mcg/min. PA at bedside. Albumin 5% 250 mls IV ordered and given-see jul. Levo gtt decreased to 6.5 mcg/min at 0225 for mAP 75.
[2024-12-06 03:16] LABS: Glucose - Point of Care 101 mg/dl (70-99)
[2024-12-06] MEDS: TORADOL 15 MG IV ×2 (03:20→14:55)
[2024-12-06 04:40] LABS: Glucose - Point of Care 94 mg/dl (70-99)
[2024-12-06 05:00] LABS: Hematocrit 24.3 % (39.0-52.0); Hemoglobin 8.6 g/dL (13.0-18.0); Mean Corp Hgb Conc. 35.4 g/dL (33.0-37.0); Mean Corpuscular Volume 85.6 fL (80.0-94.0); Platelet Count 201 10^3/uL (130-400); Red Cell Dist. Width 14.1 % (11.5-14.5)
[2024-12-06 05:27] LABS: Blood Urea Nitrogen 15 mg/dl (9-20); Calcium 9.2 mg/dl (8.4-10.2); Carbon Dioxide 25 mmol/L (22-30); Chloride 108 mmol/L (98-107); Estimated Creatinine Clearance 66 ml/min; Glucose 87 mg/dl (70-99); Magnesium 2.2 mg/dl (1.6-2.3); Potassium 4.2 mmol/L (3.5-5.1); Sodium 138 mmol/L (135-145); eGFR > 60.00
[2024-12-06] MEDS: STRIVERDI RESPIMAT 2 PUFF INH (05:40)
[2024-12-06 06:10] LABS: Glucose - Point of Care 134 mg/dl (70-99)
[2024-12-06] MEDS: TYLENOL 1000 MG PO ×2 (06:14→14:49)
[2024-12-06] MEDS: MUCINEX 600 MG PO (06:15)
[2024-12-06] MEDS: ANCEF 5 IV ×2 (06:20→14:49)
--- NOTE | 2024-12-06 06:30 | PTCARENOTE ---
labs drawn and sent this am. CXR done. EKG done, shown to pa. Attempted to wean levo to 5 mcg x 2, yet BP down to 80-90'50's after ~ 30 min. Levo gtt remains at 6 mcg/min. Respiratory tx given by RT at ~0539. Mucinex given early this am per pt
request. PA aware. Pt now on 2l/NC. Sats 96%.
[2024-12-06] MEDS: LEVOPHED 250 IV (06:50)
--- NOTE | 2024-12-06 07:14 | W.PN.CT ---
Today's Communication / Plan
-
-pod #1
-no significant issues overnight. Extubated uneventfully @ 9:45 pm
-got 1L LR and 250 Albumin postop
-mvO2 71.3. drips: Levo 5, Insulin
-CT outputs: 2 meds 105/145, 2 pleur 65/105 in 12/24 hrs
-wean off Levo as tolerated. Holding BB
-current meds (ASA, Plavix, Lipitor, Mucinex, Striverdi inhaler, Amio, iv iron, Protonix)
-encourage IS, OOB
Assessment / Plan
-
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 Tao on 12/05/24, pod #1
- Intraop CYN: LVEF pre and postop 60% with no new regional wma. He had baseline mild mitral valve insufficiency that remained the same and looked slightly better after surgery.
- HTN
- HLD
- COPD with moderate disease on PFTs (FEV1 48%)- on home O2 prn
- Asthma/ mild emphysema
- Prostate adenocarcinoma, diagnosed 2.5 months ago
- Hx smoking 2 ppd for 40 yrs, quit 10 yrs ago
- HgA1c 5.2%
- Acute postop blood loss anemia- stable, no transfusion
- Acute postop atelectasis
- Acute postop hypovolemia with subsequent hypervolemia
Discussed patient care with: Nursing and Care Team
Subjective
-
Date of Service: December 06, 2024
Objective Data
-
PT 16.7 Sec (11.4-14.6) H 12/05/24 16:40
INR 1.30 12/05/24 16:40
APTT 32.9 Sec (23.4-35.0) 12/05/24 16:40
Vital Signs
Vital Signs
Temp Pulse Resp BP Pulse Ox
99.5 F 95 19 101/56 99
12/06/24 01:00 12/06/24 01:05 12/06/24 01:05 12/06/24 01:00 12/06/24 01:05
CT Intake/Output/Weight
12/05/24 12/05/24 12/06/24
06:59 18:59 06:59
Intake Total 639.6 / 1615.3 975.7 / 1615.3
Output Total 780 / 780 305 / 900 595 / 900
Balance -780 / -780 334.6 / 715.3 380.7 / 715.3
SaO2: 99
Physical Exam
-
General: Awake and AOx3
Cardiovascular: Regular rate & rhythm, No Murmurs and No Rub
Respiratory: Decreased Breath Sounds
Sternum: Stable
Incision: Clean, Dry and Dressing Intact
Extremities: No Edema (1+ DPs b/l (R better than L))
Abdomen: soft, nontender, nondistended, decreased bowel sounds
Data Reviewed
-
Lab Results: Results Reviewed
Medications: Active Meds Reviewed
Chest X-Ray: Report Reviewed and Image Reviewed
ECG: Report Reviewed and Image Reviewed
--- NOTE | 2024-12-06 07:48 | CON.INTV ---
Consultation
Consultation Request
Date/Time Consultation Requested: 12/06
Date/Time Consultation Performed: 12/06
Reason for Consultation: Critical Care
Medical History
-
History of Present Illness:
History obtained from chart and some history from the patient. Unable to see patient yesterday p.m., evaluated this morning. Presently patient is without significant complaints. Minimal shortness of breath. 79-year-old male with history of
hypertension, hyperlipidemia, prostate cancer presents with 2 days of increased shortness of breath, chest discomfort, admitted 12/01/2024 patient had elevated troponin, abnormal EKG, echocardiogram normal. Catheterization revealed multivessel
coronary disease. Patient was seen by CT surgery, PFT confirms severe obstruction with severe gas exchange defect. Patient underwent CABG x 3 on 12/05 with left atrial appendage ligation. Postoperatively required pressors but otherwise extubated
without difficulty. We are asked to help from critical care standpoint
.
PMH: Hypertension, hyperlipidemia, severe obstructive lung disease FEV1 48%, DLCO 43% on home oxygen, prostate cancer
Past Medical History
Past Medical History: None (See above)
Past Surgical History: None (See above)
Social History
Tobacco: Former Smoker (06-[id number]-[id number] history, quit 2014.)
Alcohol: Occasional
Drug: None
Living: With Family (Lives with daughters, who are young)
Employment: Employed (Works with [employer])
Family History
Family History: Reviewed & Not Pertinent (Per records, mother at age 86, father still living. There is a family history of coronary disease. 2 daughters age 18 and 16 years old)
Allergies / Home Medications
Allergies
Allergy/AdvReac Type Severity Reaction Status Date / Time
Penicillins Allergy Swelling Verified 12/01/24 20:40
Home Medications
�Medication �Instructions �Recorded �Confirmed �Last Taken �Type
lisinopril 10 mg tablet 10 mg PO DAILY 05/26/16 12/01/24 09/11/24 07:00 History
tiotropium 2.5 mcg-olodaterol 2.5 2 puff inhalation DAILY 09/07/24 12/02/24 09/11/24 07:00 History
mcg/actuation mist for inhalation
(Stiolto Respimat)
albuterol sulfate 90 mcg/actuation 2 puff inhalation Q6H PRN 12/01/24 12/02/24 Unknown History
aerosol inhaler sob/wheeze
guaifenesin 400 mg tablet 400 mg PO DAILY 12/04/24 12/04/24 Unknown History
Review of Systems
-
All other systems: Negative unless noted
Vitals / Labs / Diagnostic Testing
Vital Signs
Temp Pulse Resp BP Pulse Ox
99.3 F 94 14 105/57 96
12/06/24 07:00 12/06/24 07:25 12/06/24 07:25 12/06/24 07:00 12/06/24 07:25
Lab Data
12/06/24 04:33
12/06/24 04:33
Laboratory Results
12/05/24 12/05/24 12/05/24
07:00 16:40 19:58
PT 16.7 H
INR 1.30
APTT Cancelled 32.9
pH 7.29 L 7.38
pCO2 46 45
pO2 139 H 109 H
HCO3 22.1 26.6
O2 Delivery Level
12/05/24 12/05/24
21:15 23:40
PT
INR
APTT
pH 7.39 7.38
pCO2 42 42
pO2 126 H 128 H
HCO3 25.4 24.8
O2 Delivery Level
Diagnostic Testing:
Physical Exam
-
HEENT: Normocephalic, Anicteric and Other (IJ, A-line, chest tube)
Cardiovascular: S1/S2, Regular Rhythm, Murmur (n), Rub (n), Peripheral Edema (n) and Other (Right lower extremity bandage)
Respiratory: Wheeze (n), Rales (n), Rhonchi (n) and Non-Labored Respirations
GI: Soft, Non Distended and Non Tender
Neurology: Awake, Alert and No Motor Deficits
Skin: Good Color
General: Comfortable
Assessment
-
79-year-old male with hypertension, hyperlipidemia, diabetes, COPD on home oxygen FEV1 40%, DLCO 43%, prostate cancer presents with chest pressure, found to have multivessel coronary disease. He is status post CABG x 3 with left atrial clip. We
are asked to help from critical care standpoint.
S/p CABG x 3 12/05/24
S/p NSTEMI, admitted 12/01/2024
Multivessel coronary disease, normal EF
Chest discomfort, shortness of breath
Treated with magnets at home in toms
Postoperative anemia
Postoperative hypotension
Conditions present prior to admission
Hypertension, hyperlipidemia
Diabetes
COPD on home oxygen
History of prostate cancer, treated with homeopathic medicine
30-pwbq-nagf history of smoking, quit 2014
Plan/recommendations
At this time, patient appears to be comfortable
Extubated without difficulty, currently on nasal cannula
Chest x-ray without significant findings, mild atelectasis
Hypotension noted, on norepinephrine, received albumin and LR
Moving forward
Continue with management per CT surgery
Remains on norepinephrine, insulin drip being weaned
Chest tube output minimal
Did not require blood products
Patient with history of emphysema, COPD
On Stiolto as outpatient
Continue with albuterol as needed for now
Chest exam without significant wheezing
Resume outpatient inhaler regimen at time of discharge otherwise for now albuterol is adequate
Sequential teds for DVT prophylaxis left lower extremity
Reviewed with critical care nursing. Will follow
TCCT 31 min
[2024-12-06 08:03] LABS: Glucose - Point of Care 114 mg/dl (70-99)
[2024-12-06 08:04] LABS: B.E. - POC -1.1 mmol/L; Glucose - POC 210 mg/dl (70-99); HCO3 - POC 24 mmol/L (21-28); Hematocrit - POC 24 % PCV (42-52); Hemodilution- POC Yes; Hemoglobin Calculated - POC 8.1; Ionized Calcium - POC 3.44 mmol/L (1.15-1.33); Lactate - POC < 0.30 mmol/L (0.36-0.75); O2 Saturation %Calculated-POC 100.0 % (94-98); PCO2 - POC 39 mmHg (35-48); PO2 - POC 490 mmHg (83-108); Potassium - POC 5.7 mmol/L (3.5-5.1); Sodium - POC 139 mmol/L (136-145); Specimen Type - POC Arterial; pH - POC 7.40 (7.35-7.45)
[2024-12-06] MEDS: PROTONIX 40 MG PO (08:44)
[2024-12-06] MEDS: SENOKOT-S 1 TABLET PO (08:44)
[2024-12-06] MEDS: LIDOCAINE 4% PATCH TOPICAL (08:44)
[2024-12-06] MEDS: NEURONTIN 100 MG PO ×2 (08:45→17:17)
[2024-12-06] MEDS: LOW STRENGTH ASPIRIN 81 MG PO (08:45)
[2024-12-06] MEDS: LR 250 ML IV (08:45)
[2024-12-06] MEDS: MAGNESIUM OXIDE 500 MG PO (08:45)
[2024-12-06] MEDS: PLAVIX 75 MG PO (08:45)
[2024-12-06] MEDS: PACERONE 200 MG PO ×2 (08:45→17:17)
--- NOTE | 2024-12-06 08:45 | PTCARENOTE ---
Patient received from rn night RN; AAOx3, responds spontaneously to RN and follows commands appropriately; VSS; NSR on monitor; Epicardial V-wire present with temporary pacemaker settings 50/10/0.8; +1 DP and radial pulses; Shallow respirations;
SpO2 94-97% on 2L NC; IS 750 ml; Chest tubes x4 connected to -20 cm wall suction draining serosanguineous drainage - no air leak, tidaling, or crepitus noted; Hypoactive BS; Rivera catheter draining clear, yellow urine; B/L LE wrapped in MAX wrap -
CDI, right groin puncture glued and approximated, sternum midline incision glued and approximated - CDI; RIJ cordis with SLIC, left radial A-line in place - all lines zeroed and level; Insulin and norepinephrine drips infusing - see nursing
flowsheets for further details; LR bolus given x1; See nursing documentation for further information
[2024-12-06] MEDS: BACTROBAN 2% OINTMENT 1 APPLIC NASAL ×2 (08:53→21:38)
[2024-12-06] MEDS: NOVOLOG FLEXPEN 4 UNITS SC (09:12)
--- NOTE | 2024-12-06 09:54 | W.PN.CD ---
Today's Communication / Plan
-
Continue routine post operative management.
Wean pressors/inotropes for MAP > 65 mmHg, CI > 1.8 L/min/m2.
Encourage incentive spirometry.
Ambulate when appropriate.
Impression / Plan
-
Impression/Plan: 79-year-old male with hypertension, NIDDM (treated with tirzepatide; which he stopped 2 weeks ago), obesity, COPD (former smoker of 2 PPD x 40 years; quit 18 years ago), and prostate cancer admitted with NSTEMI.
#NSTEMI/CAD
-Acute, threat to life.
-Significant ST/T wave abnormality on his initial EKG ([address] depression, 1.[address] elevation in aVR), which improved on subsequent EKG with resolution of chest pain.
-Troponin peaked at 0.656.
-Echocardiogram shows preserved systolic function. LVEF 55-60%.
-Cardiac catheterization shows 90% ostial RCA, 90% distal LMCA.
-S/P 3V CABG (PETE to LAD, FRIMA Y-graft from PETE to OM, SVG to RPDA) with LAAL with Dr. Tao, 12/05/2024.
-Continue routine post operative management.
-Wean pressors/inotropes for MAP > 65 mmHg, CI > 1.8 L/min/m2.
-Encourage incentive spirometry.
-Ambulate when appropriate.
-Pain/chest tube management per CT surgery.
-Continue amiodarone, aspirin, atorvastatin, clopidogrel.
#COPD
-Chronic, stable, moderate.
-Continue inhaled bronchodilators, guaifenesin (improves his cough).
#Hypertension:
-Chronic, stable.
-Currently requiring blood pressure support.
-Restart home antihypertensives when BP will permit.
#NIDDM2:
-Chronic, stable.
-Hemoglobin A1c = 5.2%.
-Patient states that he was on tirzepatide for a few years; stopped it 2 weeks ago because he thinks he is 'cured'.
#Prostate cancer
-Chronic.
-Currently using a homeopathic regimen.
#Overweight, BMI 24
Subjective/Interval History:
Surgery yesterday afternoon.
Extubated at 21:45.
Requiring norepinephrine with unsuccessful wean x2.
Weight up 3.1 kg from baseline.
SaO2 = 97% on 2LNC.
DATA:
CABG,12/05/2024:
Procedure(s) Performed:
1. Standard Sternotomy with Aortic and Right Atrial Cannulation.
2. Bilateral Internal Mammary Artery Harvesting, In Situ PETE and Free HOWARD.
3. Multi Arterial Coronary artery bypass grafting x 3 (In situ PETE to LAD, HOWARD Y off PETE to OM, Ao to RSVG to RPDA).
4. Endoscopic vein harvesting of RLE and LLE.
5. Transesophageal echocardiography.
6. Placement of Temporary Atrial and Ventricular Pacing Wires.
7. Ligation of Left Atrial Appendage.
Cath 12/03/2024:
CONCLUSIONS
1. Right dominant circulation with a 90% lesion in the ostium of the RCA, a 50% lesion in the distal aspect of the proximal RCA, a 50% lesion in the mid RCA, a 50-60% lesion in the distal RCA immediately after the crux, and 90% lesion in the distal
margin of the left main coronary artery, a 40% lesion in the proximal LAD, a 40% lesion in between D1 and D2 and a 60-70% lesion immediately distal D2 as well as a 40% lesion in the mid circumflex extending into the proximal margin of OM 2.
2. Transient hypotension with LVEDP of 10 mmHg. Hypotension resolved with fluid bolus.
CTPE, 12/01/2024:
IMPRESSION:
1. No evidence of central or segmental pulmonary embolism.
2. There are opacities within the bilateral lower lobe secondary to represent atelectasis.
3. 2.5 cm heterogeneous nodule within the posterior right hemithyroid. Recommend nonemergent thyroid ultrasound for further evaluation. Given slightly increased size from prior examination.
4. Prominent retroperitoneal lymph nodes, similar to recent prior PET and consistent with known malignancy.
TTE, 12/02/2024:
CONCLUSIONS
Estimated left ventricular ejection fraction is 55-60%. Normal regional wall
motion.
Normal right ventricular size and function.
No significant valvular disease.
No significant change since the prior study of 07/13/2016.
PFT's, 12/04/2024:
Physical Exam
Vital Signs/Labs
Vital Signs
Temp Pulse Resp BP Pulse Ox
37.1 C 93 21 108/67 97
12/06/24 09:00 12/06/24 09:10 12/06/24 09:10 12/06/24 09:00 12/06/24 09:10
12/04/24 12/05/24 12/06/24
11:59 11:59 11:59
Actual Weight 65.7 kg 65.2 kg 68.3 kg
12/06/24 04:33
12/06/24 04:33
PT 16.7 Sec (11.4-14.6) H 12/05/24 16:40
INR 1.30 12/05/24 16:40
APTT 32.9 Sec (23.4-35.0) 12/05/24 16:40
Magnesium 2.2 mg/dl (1.6-2.3) 12/06/24 04:33
Triglycerides 275 mg/dl (10-149) H 12/03/24 02:26
LDL Cholesterol, Calc 100 mg/dl 12/03/24 02:26
VLDL Cholesterol, Calc 55 mg/dl (0-30) H 12/03/24 02:26
HDL Cholesterol 32 mg/dl 12/03/24 02:26
TSH 1.80 uIU/ml (0.47-4.68) 12/03/24 02:26
12/01/24
20:52
Oqp-[id number]-Gpebwoegbfh Pept 282
Physical Exam
Constitutional: No acute distress and Comfortable
EENT: Anicteric and Moist mucous membranes
Cardiovascular: Rhythm & rate is regular, Pedal edema is absent, JVD pressure is normal, S1S2 is normal and Murmur/rub/gallop absent
Respiratory: Respiratory effort normal and Other (Decreased throughout.)
GI: Soft, Distention absent, Flat, Non tender and Normal bowel sounds
Neuro/Psych: AO x 3
Data Reviewed
-
Date of Service: December 06, 2024
Medical Decision Making: Reviewed Test Results, Independent Historian Assessment and Test Interpretation
EKG: Tracing Personally Visualized and interpreted and Report Reviewed by me
Echo: Report Reviewed by me
X-Ray/CT/US/MRI/NUC/PET: Image Personally Visualized and interpreted and Report Reviewed by me
Medical Tests (PFT, Pathology etc): Image Personally Visualized and interpreted and Report Reviewed by me
Labs: Labs Reviewed by me
Old Records: Reviewed
[2024-12-06 10:00] LABS: Glucose - Point of Care 102 mg/dl (70-99)
--- NOTE | 2024-12-06 10:28 | CM ---
Chart reviewed. Patient OOB sitting in the chair. Patient is independent of ADLS, lives with his daughters, 18 and 16, in a 1 [address], full flight of stairs to enter, occasional wears home O2. Plan is for the patient to return home with CT
Transitional RN. CM to follow
--- NOTE | 2024-12-06 11:45 | PTCARENOTE ---
Pleural chest tubes removed by RN at bedside; VSS; No complications noted; Vaseline gauze and 4x4 applied to sites; Patient OOB to chair with RN and cardiac rehab; Norepinephrine infusion continuing to be weaned - see nursing flowsheets for further
details
[2024-12-06] MEDS: VENTOLIN NEBULES 2.5 MG INH (12:08)
[2024-12-06 12:09] LABS: Glucose - Point of Care 69 mg/dl (70-99)
[2024-12-06 12:26] LABS: Glucose - Point of Care 86 mg/dl (70-99)
[2024-12-06 13:02] LABS: Glucose - Point of Care 122 mg/dl (70-99)
[2024-12-06 14:00] LABS: Glucose - Point of Care 124 mg/dl (70-99)
[2024-12-06 14:10] LABS: B.E. - POC 4.0 mmol/L; Blood Urea Nitrogen - POC 13 mg/dl (3-120); Chloride - POC 107 mmol/L (96-111); Creatinine - POC 0.80 mg/dl (0.3-1.0); Glucose - POC 113 mg/dl (70-99); HCO3 - POC 28 mmol/L (21-28); Hematocrit - POC 23 % PCV (42-52); Hemodilution- POC No; Hemoglobin Calculated - POC 7.8; Ionized Calcium - POC 1.21 mmol/L (1.15-1.33); Lactate - POC 1.07 mmol/L (0.36-0.75); O2 Saturation %Calculated-POC 94.5 % (94-98); PCO2 - POC 40 mmHg (35-48); PO2 - POC 69 mmHg (83-108); Potassium - POC 4.0 mmol/L (3.5-5.1); Sodium - POC 141 mmol/L (136-145); Specimen Type - POC Arterial; pH - POC 7.45 (7.35-7.45)
[2024-12-06] MEDS: PULMICORT 0.5 MG INH (14:19)
[2024-12-06] MEDS: NOVOLOG FLEXPEN SC ×2 (14:40→17:17)
[2024-12-06] MEDS: FERRLECIT 110 MG IV (14:50)
[2024-12-06 15:05] LABS: Glucose - Point of Care 137 mg/dl (70-99)
--- NOTE | 2024-12-06 15:11 | PTCARENOTE ---
Patient with intermittent respiratory distress and SOB since 1200; SpO2 down to 79% at times on 6L NC; Oxygen saturation unable to recover unless patient resting quietly focusing on breathing; RT at bedside several times since events of respiratory
distress; PRN nebulizer treatment given by RT; New wheezing and chest tightness noted; Placed on 15L nonrebreather by RN; MD López, SVETLANA Escobar and MACIE Angel at bedside - EPOC ABG and CXR completed; Patient placed on 15L Midflow NC by RT
and given ordered nebulizer treatment by MD López; Patient given PRN IV Toradol given accordingly for pain; Incentive spirometer and mobility encouraged; Patient now resting comfortably in bed
[2024-12-06] MEDS: DUONEB 3 ML INH ×3 (15:27→20:36)
[2024-12-06 16:11] LABS: B.E. - POC 0.7 mmol/L; Blood Urea Nitrogen - POC 18 mg/dl (3-120); Chloride - POC 103 mmol/L (96-111); Creatinine - POC 0.81 mg/dl (0.3-1.0); Glucose - POC 133 mg/dl (70-99); HCO3 - POC 25 mmol/L (21-28); Hematocrit - POC 32 % PCV (42-52); Hemodilution- POC Yes; Hemoglobin Calculated - POC 11.0; Ionized Calcium - POC 1.22 mmol/L (1.15-1.33); Lactate - POC 1.78 mmol/L (0.36-0.75); O2 Saturation %Calculated-POC 91.3 % (94-98); PCO2 - POC 37 mmHg (35-48); PO2 - POC 59 mmHg (83-108); Potassium - POC 4.0 mmol/L (3.5-5.1); Sodium - POC 138 mmol/L (136-145); Specimen Type - POC Arterial; pH - POC 7.44 (7.35-7.45)
--- NOTE | 2024-12-06 16:16 | W.PN.UPDATE ---
Update Note
Progress Note Update
Called to see patient emergently. I just had examined the patient about 15 minutes prior while he was sitting in the chair. Chest exam was clear, felt much improved, receiving DuoNebs.
He completed his DuoNeb doing okay but then shortly thereafter developed sudden difficulty in getting a deep breath, desaturated to 70%. Throughout this hemodynamics were stable per nursing
Patient was immediately patted on the back, chest percussion, transferred to the bed
Upon my arrival, he was alert and answering questions, on nonrebreather transition to high flow, 90% saturation
Chest exam with slightly decreased breath sound left side but the exam was improved compared to earlier today when he required budesonide
Stat chest x-ray obtained, slight decreased lung volumes on the left suggesting possible mucous plugging. No pneumothorax per my review
Presently he is conversant, saturating 95%, has a weak cough
He is moving air adequately, no significant wheeze but left side is slightly decreased
Will continue with budesonide twice a day, DuoNebs every 4 hours
Doubt reaction to Atrovent as he is on Stiolto as outpatient
Humidified oxygen, high flow and nonrebreather for now
Will give steroids given likelihood of plugging
Methylprednisolone will be administered
Optimize mucolytic therapy
Patient will require airway clearance measures as able
Can do posterior chest percussion, Acapella
Can also consider support bed as able
Other etiologies to consider include acute cardiac event although less likely given lack of hemodynamic changes
Consider echocardiogram to confirm no obvious changes from RV standpoint from thromboembolic process but this is less likely given improvement
Reviewed at length with critical care nursing, CT surgery team
Reviewed with pharmacy
Will continue to follow closely
[2024-12-06] MEDS: SOLU-MEDROL PF 10 MG IV (16:18)
--- NOTE | 2024-12-06 16:35 | PTCARENOTE ---
Patient assisted OOB to chair by RN with assist x1; 10 minutes later, patient in respiratory distress with SpO2 down to 68% following nebulizer treatment; Patient unresponsive and leaning forward in chair; MD López emergently called to come to
bedside; Patient lifted back to bed with assist x4; Nonrebreather 15L applied and oxygenation recovered while patient lying in bed; EPOC ABG and CXR completed at bedside; IV Solumedrol ordered and given; High flow nasal cannula 50L 100% applied by
RT and nonrebreather maintained - SpO2 93-100%; Deep breathing and coughing encouraged; Patient now resting comfortably in bed
[2024-12-06] MEDS: NSS IV (17:16)
[2024-12-06] MEDS: LIPITOR 40 MG PO (17:17)
[2024-12-06 18:45] LABS: B.E. 0.9 mmol/L; HCO3 26.0 mmol/L (21-28); O2 Saturation % 97.9 % (94-98); PCO2 43 mmHg (35-48); PO2 121 mmHg (83-108); Potassium 4.4 mMOL/L (3.5-5.1)
--- NOTE | 2024-12-06 19:39 | W.PN.UPDATE ---
Update Note
Progress Note Update
Echocardiogram with RV dilatation, PA pressure 35, normal LV function. RV dilatation is new
CT angiogram negative for pulm embolism
There is left lower lobe atelectasis
Unfortunately, patient had chicken salad around 645
Upon my evaluation, 93% on high flow and nonrebreather
Nasal trumpet placed, lidocaine jelly and lidocaine neb provided
NT suction was completed 3 times with effective cough and effective suction
Saturation improved to 100%
Moving forward
Maintain nasal trumpet in place overnight. Patient agreeable
Chest percussion left base every 4 hours followed by NT suction every 4 hours with lidocaine jelly. Reviewed at length with respiratory therapy
Continue with DuoNebs 4 times daily and every 4 hours as needed
Budesonide twice daily
Will give 1 dose of nebulized Mucomyst prior to next NT suction at around 11:30 PM
Will hold on vest therapy at this time, will reconsider in a.m.
maintain n.p.o. for now in anticipation of bedside bronchoscopy in a.m.
Chest x-ray in a.m.
Reviewed with CT surgery team, management psychologist SIX HORSE HITCH DRIVER, Dr. Tao
Reviewed with respiratory at length
--- NOTE | 2024-12-06 19:40 | PTCARENOTE ---
Echo completed at bedside; Patient taken to CT scan for CT Chest - MD López at bedside following results and nasal trumpet placed by RT at bedside; EKG and ABG completed by RN; Insulin gtt discontinued; Report given to Monroe ESQUEDA
--- NOTE | 2024-12-06 19:44 | RESPNOTE ---
called to bedside for urgent bronchoscopy with Dr. López. Lidocaine neb given pre-procedure, discovered that patient ate dinner, Dr. López notified. bronchoscopy cancelled. per Dr. López, 34 Fr nasal trumpet placed in right nare for
naso-tracheal suction/airway clearance. patient tolerated placement and this therapist able to NT suction x3 for small amount of yellow mucus. patient able to cough up some additional mucus. nasal trumpet to remain overnight with additional orders
for q4 CPT to left lung followed by additional NT suction. per - bronchoscopy in AM 12/07/2024, patient changed to NPO. patient remains on HFNC 50L @100% with 100% NRB mask, SpO2 96-99%.
[2024-12-06] MEDS: SENOKOT-S PO (20:00)
[2024-12-06] MEDS: MUCINEX PO (20:00)
--- NOTE | 2024-12-06 20:19 | W.PN.ANESINT ---
Anesthesia Intubation Note
- Intubation Note
Intubation Note:
Diagnosis: respiratory distress
Blade: glide # 4
Tube Size: 8.0 ETT
Depth: 21 cm
Side Taped: right lip
Drugs Used: Propofol 100 mg, Succinycholine 140 mg, Norepinepherine 8 mcg
Grade View: Grade 1
EtCO2 Present: +ETCO2 via stat cap
Atraumatic: yes
Attempts: 1
Insertion Start and Stop Time:
1676-1790
SaO2 Pre: 95%
SaO2 Post: 97%
Glidescope Used: yes
Other Airway Adjustments:
Pre-Oxygenated: ambu ventilation, nasal cpap on arrival
Portable Chest X-Ray: pending
RSI: yes, cricoid applied
Suctioned:
Bilateral Breath Sounds Confirmed: yes
Vent Settings: see respiratory/CVICU flow sheet
Pt in stable condition, left in care of CVICU/respiratory staff, VSS
Settings per ___Attending Physician
[2024-12-06] MEDS: DIPRIVAN 100 IV (20:27)
[2024-12-06] MEDS: DOBUTREX 500 MG 250 IV (20:29)
[2024-12-06] MEDS: FLOVENT 110 MCG INHALER 4 PUFF INH (20:37)
[2024-12-06] MEDS: SUBLIMAZE 100 IV (20:55)
[2024-12-06] MEDS: SUBLIMAZE 100 MCG IV (20:55)
--- NOTE | 2024-12-06 21:00 | PTCARENOTE ---
Report received from DHEERAJ Hay. Walking rounds done. At 1915: pt on High flow O2 and NRB mask (100%). Sats 92-94%. Both PIYUSH Jasmine and DANYA Portillo aware of Chest CT results. Dr. López at bedside at ~1940, along with ALMOND GRINDER Radha and Cyril. Nasal trumpet
placed by Radha, ALMOND GRINDER to R nare. Pt nasal tracheally suctioned for thick, white sputum. Pt also attempting to expectorate sputum. C/O dyspnea. Sats briefly decreased to 76-80% but increased to 92-94% with HFNC and NRB, both at 100% FiO2. Chest PT
done via ALMOND GRINDER to L posterior base of lung. On auscultation, very diminished airflow to L lung, coarse.
Order given by Dr. Tao to intubate pt. Anesthesia called to bedside. Pt intubated with #8 ett/21 cm R lip. OGT place via order PA. BBS present. Still decreased to L lobe. Sats 95-98%. CXR done to verify ett and OGT placement. Seen by PA and MILK TESTER. OGT
placed to low intermittent wall suction. Placed on vent. Mode: Volume AC, 100% FiO2, rate 16, peep 5, TV 500.
Dobutamine 3 mcg/kg/min started per order. Levophed gtt started during intubation process at 1 mcg/min to keep maP > 65. Propofol gtt up at 10 mcg/kg/min. Fentanyl gtt started per protocol at 50 mcg/hr with Fentanyl bolus given beforehand. (see
jul).
Audible heart tones. + rub. Pt in ST 110-120's. T 99.5 max. CVP teens to 20. pa aware. Weak pulses to B radials and B DPs. For wound assessments, see flowsheets. V wire to temp pacer. VVI, rate 50, mA 10, sens 0.8. Mediastinal CTs at -20 cm suction.
SsG drainage.
Belly soft, nontender. hypoactive bs x 4. OGT verified also with 30 mls air bolus to luQ. CXR seen by PA/MILK TESTER. To LIWS with green, gastric content.
Rivera with clear, yellow urine. Hourly UO.
Accuchecks q 6 hours.
Family (sister) called and updated by PA.
At 2053, pt awake while on vent. Calm. Gripped and wiggled toes to command. Nodding appropriately to questions. Mouthed words he felt hot. Updated on plan for night. Pt nodded in understanding. Will titrate sedation and pain medication per RASS and
c/o pain. ABG obtained after intubation. PA with results.
[2024-12-06 21:25] LABS: B.E. -2.1 mmol/L; HCO3 23.2 mmol/L (21-28); O2 Saturation % 97.8 % (94-98); PCO2 41 mmHg (35-48); PO2 139 mmHg (83-108); Potassium 4.6 mMOL/L (3.5-5.1)
[2024-12-06] MEDS: REMOVE LIDOCAINE PATCH 1 PATCH REMOVE (21:25)
[2024-12-06] MEDS: SOLU-MEDROL PF 30 MG IV (21:32)
[2024-12-06 21:44] LABS: Triglycerides 132 mg/dl (10-149)
[2024-12-06 23:07] LABS: B.E. -1.3 mmol/L; HCO3 23.7 mmol/L (21-28); O2 Saturation % 95.6 % (94-98); PCO2 40 mmHg (35-48); PO2 70 mmHg (83-108)
[2024-12-07] VITALS (25 sets, daily range): BP systolic 105–133; BP diastolic 50–73; BMI 25.6
[2024-12-07] MEDS: MUCOMYST 10% 2 ML INH
--- NOTE | 2024-12-07 | PTCARENOTE ---
At 2225, FiO2 decreased to 80%. Sats gradually decreased to 89-92%. ABG done after 30 minutes. PO2 70. PA aware. Don, JUNIOR RECRUITER called to bedside. Nebulizer, mucomyst, and Chest PT done per JUNIOR RECRUITER. FiO2 increased to 100%. Pt sats gradually improved to
94-97%. Pt suctioned for thick white sputum. Small amount. JUNIOR RECRUITER removed nasal trumpet to R nare. Pt remains calm. On Propofol 15 mcg/kg/min and Fentanyl 50 mcg/hr. Will sleep then occasionally awaken briefly. Denies pain. Nods head that he is
comfortable. Dobut remains at 3 mcg. Levo remains at [address], rate 100's. CVP mid-teens. Discussed giving oral meds due through OGT. Approved by Kenroy PICKETT. See mAR. Midnight glucose 213. Orders followed. Ongoing plan of care.
[2024-12-07] MEDS: NEURONTIN 100 MG PO ×4 (00:04→22:32)
[2024-12-07] MEDS: MAGNESIUM OXIDE 500 MG PO ×3 (00:04→22:31)
[2024-12-07] MEDS: TYLENOL 1000 MG PO ×3 (00:05→22:33)
[2024-12-07] MEDS: PACERONE 200 MG PO ×4 (00:05→22:32)
[2024-12-07 00:09] LABS: Glucose - Point of Care 135 mg/dl (70-99)
[2024-12-07 00:09] LABS: Glucose - Point of Care 92 mg/dl (70-99)
[2024-12-07 00:09] LABS: Glucose - Point of Care 150 mg/dl (70-99)
[2024-12-07] MEDS: ROBITUSSIN 200 MG PO ×5 (00:29→22:33)
[2024-12-07 00:42] LABS: Glucose - Point of Care 213 mg/dl (70-99)
[2024-12-07] MEDS: NOVOLOG FLEXPEN-LOW RESISTANCE 2 UNITS SC (00:43)
--- NOTE | 2024-12-07 01:30 | PTCARENOTE ---
Dobut gtt off per order PA.
--- NOTE | 2024-12-07 03:41 | W.PN.CT ---
Today's Communication / Plan
-
-pod #2
-intubated, sedated. No significant changes overnight
-vent settings AC 16/500/5/60% fiO2
-had percussion therapy, Mucomyst, Guaifenesin, Duonebs, SoluMedrol 30 iv q12 overnight
-CXR appears improved, decreased atelectasis on L side
-drips: Dobut 3, Levo 1, Fentanyl 50, Propofol 15
-NPO, plans for bronchoscopy today at 7:30 am
-OG tube placed 12/06
-CT outputs: 2 meds 105/325 in 12/24 hrs
-Hg 7.6 today (8.6 on 12/06, 9.9 on 12/05)-follow
-updated pt's sister, Tyrel, twice last night, answered
Assessment / Plan
-
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 Tao on 12/05/24, pod #2
- Intraop CYN: LVEF pre and postop 60% with no new regional wma. He had baseline mild mitral valve insufficiency that remained the same and looked slightly better after surgery.
- HTN
- HLD
- COPD with moderate disease on PFTs (FEV1 48%)- on home O2 prn
- Asthma/ mild emphysema
- Prostate adenocarcinoma, diagnosed 2.5 months ago
- Hx smoking 2 ppd for 40 yrs, quit 10 yrs ago
- HgA1c 5.2%
- Acute postop blood loss anemia- stable, no transfusion
- Acute postop atelectasis
- Acute postop hypovolemia with subsequent hypervolemia
- Acute postop mucous plugging of the L lung with respiratory failure, required urgent re-intubation- plans for bronch 12/[address] 12/06/24:
1. ACUTE COMPLETE PROXIMAL ENDOBRONCHIAL OCCLUSION of the left upper and lower lobe bronchi secondary to endobronchial mucous plugging.
2. NEAR COMPLETE POSTOBSTRUCTIVE ATELECTASIS of the LEFT LOWER LOBE with associated left lung volume loss.
3. Small bilateral pleural effusions.
4. Mild bilateral upper lobe centrilobular emphysema.
5. Minimal left apical pneumothorax.
6. Moderate amount of soft tissue emphysema in the anterior mediastinum, lower neck, and upper anterior abdominal wall.
7. Recent midline sternotomy, CABG surgery, and left atrial appendage exclusion.
8. Mediastinal chest tubes and right IJ central venous catheter in place.
9. No PE
Discussed patient care with: Nursing and Care Team
Subjective
-
Date of Service: December 07, 2024
Objective Data
-
PT 16.7 Sec (11.4-14.6) H 12/05/24 16:40
INR 1.30 12/05/24 16:40
APTT 32.9 Sec (23.4-35.0) 12/05/24 16:40
Vital Signs
Vital Signs
Temp Pulse Resp BP Pulse Ox
98.6 F 104 17 117/53 96
12/07/24 02:00 12/07/24 02:05 12/07/24 02:05 12/07/24 02:00 12/07/24 02:25
CT Intake/Output/Weight
12/06/24 12/06/24 12/07/24
06:59 18:59 06:59
Intake Total 1453.8 / 2139.9 1505.6 / 1777.2 271.6 / 1777.2
Output Total 855 / 1210 645 / 1140 495 / 1140
Balance 598.8 / 929.9 860.6 / 637.2 -223.4 / 637.2
SaO2: 97
Physical Exam
-
General: Awake and AOx3
Cardiovascular: Regular rate & rhythm, No Murmurs and No Rub
Respiratory: Decreased Breath Sounds (very decreased on L side)
Sternum: Stable
Incision: Clean, Dry and Intact
Extremities: No Edema
Abdomen: soft, nondistended, + bowel sounds
Data Reviewed
-
Lab Results: Results Reviewed
Medications: Active Meds Reviewed
Chest X-Ray: Report Reviewed and Image Reviewed
ECG: Report Reviewed and Image Reviewed
[2024-12-07] MEDS: DUONEB 3 ML INH ×5 (03:51→21:01)
[2024-12-07 04:00] LABS: B.E. -0.6 mmol/L; HCO3 24.9 mmol/L (21-28); O2 Saturation % 97.5 % (94-98); PCO2 44 mmHg (35-48); PO2 167 mmHg (83-108); Potassium 4.5 mMOL/L (3.5-5.1)
--- NOTE | 2024-12-07 04:00 | PTCARENOTE ---
FiO2 down to 80% at 0225 Repeat ABG in 30 min with pO2 167. O2 Sats maintained at 95-97%. AWNING FINISHER at bedside to perform nebulizer and Chest PT with pt turned onto R side, to L posterior lung. Other AM Labs drawn and sent. Pt was given CHG bath. Gown and
linens changed. Pt calm, sleeping yet will arouse to voice. Able to mouth words appropriately, Mouths 'Thank you'. Follows simple commands with equal strength. No c/o pain.
[2024-12-07 04:11] LABS: Hematocrit 21.8 % (39.0-52.0); Hemoglobin 7.6 g/dL (13.0-18.0); Mean Corp Hgb Conc. 34.9 g/dL (33.0-37.0); Mean Corpuscular Volume 87.6 fL (80.0-94.0); Platelet Count 169 10^3/uL (130-400); Red Cell Dist. Width 14.5 % (11.5-14.5)
[2024-12-07 04:38] LABS: Blood Urea Nitrogen 19 mg/dl (9-20); Calcium 7.9 mg/dl (8.4-10.2); Carbon Dioxide 24 mmol/L (22-30); Chloride 105 mmol/L (98-107); Estimated Creatinine Clearance 66 ml/min; Glucose 215 mg/dl (70-99); Magnesium 2.1 mg/dl (1.6-2.3); Potassium 4.3 mmol/L (3.5-5.1); Sodium 136 mmol/L (135-145); eGFR > 60.00
[2024-12-07] MEDS: TYLENOL PO (05:12)
[2024-12-07 05:33] LABS: B.E. 0.2 mmol/L; HCO3 25.4 mmol/L (21-28); O2 Saturation % 97.3 % (94-98); PCO2 43 mmHg (35-48); PO2 135 mmHg (83-108)
[2024-12-07 05:38] LABS: Glucose - Point of Care 199 mg/dl (70-99)
[2024-12-07] MEDS: NOVOLOG FLEXPEN-LOW RESISTANCE 1 UNITS SC ×3 (05:40→16:57)
--- NOTE | 2024-12-07 06:00 | PTCARENOTE ---
Portable CXR done. PA at bedside to see pt. Aware of all lab results this am. FiO2 down to 60% at 0415. Repeat ABG with pO2 135, O2 sats maintained at 97%. Bed weight obtained this am. Neuro status remains unchanged since last assessment. Dobut at
3 mcg/kg/min , Levo at 1 mcg/min, Propofol at 15 mcg/kg/min, Fentanyl at 50 mcg/hr. Pt denies pain. Remains in ST, 100's. CVP in mid-teens.
--- NOTE | 2024-12-07 07:23 | W.PN.CD ---
Today's Communication / Plan
-
Bronchoscopy.
Maintain MAP > 65 mmHg, CI > 1.8 L/min/m2.
Not ready for diuresis.
Impression / Plan
-
Impression/Plan: 79-year-old male with hypertension, NIDDM (treated with tirzepatide; which he stopped 2 weeks ago), obesity, COPD (former smoker of 2 PPD x 40 years; quit 18 years ago), and prostate cancer admitted with NSTEMI.
#NSTEMI/CAD
-Acute, threat to life.
-Significant ST/T wave abnormality on his initial EKG ([address] depression, 1.[address] elevation in aVR), which improved on subsequent EKG with resolution of chest pain.
-Troponin peaked at 0.656.
-Echocardiogram shows preserved systolic function. LVEF 55-60%.
-Cardiac catheterization shows 90% ostial RCA, 90% distal LMCA.
-S/P 3V CABG (PETE to LAD, FRIMA Y-graft from PETE to OM, SVG to RPDA) with LAAL with Dr. Tao, 12/05/2024.
-Continue routine post operative management.
-Wean pressors/inotropes for MAP > 65 mmHg, CI > 1.8 L/min/m2.
-Pain/chest tube management per CT surgery.
-Anemia progressive, suspect dilution with recent surgery and BP support with volume infusion.
-Given pressor requirement, the patient is not yet ready for diuresis.
#COPD/Hypoxic respiratory failure
-Acute decompensation due to atelectasis/mucous plugging (aspiration?).
-Intubated, sedated. PaO2/FiO2 = 225.
-Bronchoscopy today.
-Wean vent per pulmonology/CTS.
-Bronchodilators.
-If there is concern for aspiration, patient may need swallow study.
#Hypertension:
-Chronic, stable.
-Currently requiring blood pressure support.
-Restart home antihypertensives when BP will permit.
#NIDDM2:
-Chronic, stable.
-Hemoglobin A1c = 5.2%.
-Patient states that he was on tirzepatide for a few years; stopped it 2 weeks ago because he thinks he is 'cured'.
#Prostate cancer
-Chronic.
-Currently using a homeopathic regimen.
#Overweight, BMI 24
Subjective/Interval History:
The patient developed new, acute hypoxic respiratory failure requiring NRB yesterday afternoon/evening (O2 sats down to the 70's).
CXR suggested atelectasis. Repeat echo showed new RV dilation with decreased function. CTPE negative for PE but did show significant atelectasis (likely mucous plugging).
Pulmonology called to bedside. Nasal trumpet placed. Deep suction with budesonide temporized SAO2, which increased to 100%.
The patient had consumed dinner, which prevented bedside bronchoscopy at the time. The plan was for bronchoscopy in the AM.
Given his status, the patient was reintubated and sedated overnight.
Even with invasive ventilation, the patient had occasional desaturations. Ultimately, FiO2 was decreased to 80% and PaO2 remained stable
Plan was for bronchoscopy this morning.
Hbg down to 7.6 this morning.
Weight up 1.4 kg from yesterday, > 4 kg from baseline.
DATA:
CTPE, 12/06/2024:
IMPRESSION:
1. ACUTE COMPLETE PROXIMAL ENDOBRONCHIAL OCCLUSION of the left upper and lower lobe bronchi secondary to endobronchial mucous plugging.
2. NEAR COMPLETE POSTOBSTRUCTIVE ATELECTASIS of the LEFT LOWER LOBE with associated left lung volume loss.
3. Small bilateral pleural effusions.
4. Mild bilateral upper lobe centrilobular emphysema.
5. Minimal left apical pneumothorax.
6. Moderate amount of soft tissue emphysema in the anterior mediastinum, lower neck, and upper anterior abdominal wall.
7. Recent midline sternotomy, CABG surgery, and left atrial appendage exclusion.
8. Mediastinal chest tubes and right IJ central venous catheter in place.
CABG,12/05/2024:
Procedure(s) Performed:
1. Standard Sternotomy with Aortic and Right Atrial Cannulation.
2. Bilateral Internal Mammary Artery Harvesting, In Situ PETE and Free HOWARD.
3. Multi Arterial Coronary artery bypass grafting x 3 (In situ PETE to LAD, HOWARD Y off PETE to OM, Ao to RSVG to RPDA).
4. Endoscopic vein harvesting of RLE and LLE.
5. Transesophageal echocardiography.
6. Placement of Temporary Atrial and Ventricular Pacing Wires.
7. Ligation of Left Atrial Appendage.
Cath 12/03/2024:
CONCLUSIONS
1. Right dominant circulation with a 90% lesion in the ostium of the RCA, a 50% lesion in the distal aspect of the proximal RCA, a 50% lesion in the mid RCA, a 50-60% lesion in the distal RCA immediately after the crux, and 90% lesion in the distal
margin of the left main coronary artery, a 40% lesion in the proximal LAD, a 40% lesion in between D1 and D2 and a 60-70% lesion immediately distal D2 as well as a 40% lesion in the mid circumflex extending into the proximal margin of OM 2.
2. Transient hypotension with LVEDP of 10 mmHg. Hypotension resolved with fluid bolus.
CTPE, 12/01/2024:
IMPRESSION:
1. No evidence of central or segmental pulmonary embolism.
2. There are opacities within the bilateral lower lobe secondary to represent atelectasis.
3. 2.5 cm heterogeneous nodule within the posterior right hemithyroid. Recommend nonemergent thyroid ultrasound for further evaluation. Given slightly increased size from prior examination.
4. Prominent retroperitoneal lymph nodes, similar to recent prior PET and consistent with known malignancy.
TTE, 12/02/2024:
CONCLUSIONS
Estimated left ventricular ejection fraction is 55-60%. Normal regional wall
motion.
Normal right ventricular size and function.
No significant valvular disease.
No significant change since the prior study of 07/13/2016.
PFT's, 12/04/2024:
Physical Exam
Vital Signs/Labs
Vital Signs
Temp Pulse Resp BP Pulse Ox
36.6 C 100 16 109/59 97
12/07/24 04:00 12/07/24 07:15 12/07/24 07:15 12/07/24 07:00 12/07/24 07:15
12/05/24 12/06/24 12/07/24
11:59 11:59 11:59
Actual Weight 65.2 kg 68.3 kg 69.7 kg
12/07/24 03:44
12/07/24 03:44
PT 16.7 Sec (11.4-14.6) H 12/05/24 16:40
INR 1.30 12/05/24 16:40
APTT 32.9 Sec (23.4-35.0) 12/05/24 16:40
Magnesium 2.1 mg/dl (1.6-2.3) 12/07/24 03:44
Triglycerides 132 mg/dl (10-149) 12/06/24 21:09
LDL Cholesterol, Calc 100 mg/dl 12/03/24 02:26
VLDL Cholesterol, Calc 55 mg/dl (0-30) H 12/03/24 02:26
HDL Cholesterol 32 mg/dl 12/03/24 02:26
TSH 1.80 uIU/ml (0.47-4.68) 12/03/24 02:26
12/01/24
20:52
[facility] Pept 282
Physical Exam
Constitutional: No acute distress and Comfortable
EENT: Anicteric and Moist mucous membranes
Cardiovascular: Rhythm & rate is regular, Pedal edema is absent, JVD pressure is normal, S1S2 is normal and Murmur/rub/gallop absent
Respiratory: Respiratory effort normal and Other (Decreased throughout, worse in LLL.)
GI: Soft, Distention absent, Flat, Non tender and Normal bowel sounds
Neuro/Psych: Other (Intubated, sedated.)
Data Reviewed
-
Date of Service: December 07, 2024
Medical Decision Making: Reviewed Test Results and Independent Historian Assessment
EKG: Tracing Personally Visualized and interpreted and Report Reviewed by me
Echo: Tracing Personally Visualized and interpreted and Report Reviewed by me
X-Ray/CT/US/MRI/NUC/PET: Image Personally Visualized and interpreted and Report Reviewed by me
Medical Tests (PFT, Pathology etc): Image Personally Visualized and interpreted and Report Reviewed by me
Labs: Labs Reviewed by me
--- NOTE | 2024-12-07 07:50 | W.PN.INTV ---
Today's Communication / Plan
Recommendations
Continue with volume cycle ventilation
Steroids, nebulized therapy
Bronchoscopy today
Assessment
-
79-year-old male with hypertension, hyperlipidemia, diabetes, COPD on home oxygen FEV1 40%, DLCO 43%, prostate cancer presents with chest pressure, found to have multivessel coronary disease. He is status post CABG x 3 with left atrial clip. We
are asked to help from critical care standpoint.
S/p CABG x 3 12/05/24
Extubated 12/05
Reintubated 12/06 for mucous plugging, worsening hypoxia
Left lung atelectasis
S/p NSTEMI, admitted 12/01/2024
Multivessel coronary disease, normal EF
Chest discomfort, shortness of breath
Treated with magnets at home in toms
Postoperative anemia
Postoperative hypotension
Conditions present prior to admission
Hypertension, hyperlipidemia
Diabetes
COPD on home oxygen
History of prostate cancer, treated with homeopathic medicine
[id number] history of smoking, quit 2014
Plan/recommendations
At this time, patient remains critically ill
Chest x-ray much improved post elective intubation yesterday p.m.
Steroids started due to mucous plugging
CT angiogram negative for pulm embolism, RV irritation likely secondary to acute hypoxia
Presently on low-dose norepinephrine, dobutamine
Moving forward
Continue with management per CT surgery
Remains on norepinephrine, insulin drip being weaned
Remains on dobutamine
Chest tube output minimal
Did not require blood products
Patient with significant emphysema, COPD as outpatient
We will pursue bronchoscopy at bedside today
Will ramp up chest percussion, ideally transition to support bed, every 2 hours 15-minute chest percussion without rotation
Mucomyst twice daily
DuoNebs 4 times daily, every 4 as needed, Flovent twice daily
Remains on methylprednisolone
On Stiolto as outpatient
Possible extubation later today versus repeat bronchoscopy to assess based on findings
Sequential teds for DVT prophylaxis left lower extremity
Reviewed with critical care nursing. Will follow
TCCT 35 min
Subjective Dataa
Subjective Data
Date of Service:
Date of Service: December 07, 2024
Subjective:
Patient remains critically ill, electively intubated yesterday p.m. due to persistent hypoxia. Chest x-ray with improvement. Required low-dose norepinephrine and dobutamine was initiated. This time, patient is nodding appropriately, following
commands. He is agreeable to bronchoscopy
Objective Data
Data Reviewed
Vital Signs / I&O / Oxygen:
Vital Signs
Temp Pulse Resp BP Pulse Ox
98 F 100 16 109/59 97
12/07/24 04:00 12/07/24 07:15 12/07/24 07:15 12/07/24 07:00 12/07/24 07:50
Intake and Output
12/06/24 12/07/24 12/08/24
06:59 06:59 06:59
Intake Total 2093.4 / 2139.9 1949.6 / 1990.2 40.6 / 40.6
Output Total 1160 / 1210 1330 / 1370 40 / 40
Balance 933.4 / 929.9 619.6 / 620.2 0.6 / 0.6
SaO2 [A/C] 97
SaO2 [CPAP] 98
SaO2 [SIMV] 98
SaO2 97
Nasal Cannula flow liters per 50
minute
Physical Exam
General: Comfortable and Other (IJ, A-line, chest tube)
HEENT: Normocephalic
Cardiovascular: S1-S2, Regular Rhythm, Murmur (n) and Rub (n)
Respiratory: Wheeze (n), Crackles (n), Rhonchi (n), Non-Labored Respirations, Crepitus (n), ET Tube and Chest Tube
GI: Soft, Non Distended and Non Tender
Neurology: Lethargic (Opens eyes, follows commands, nods appropriately)
Skin: Cyanosis (n) and Rash (n)
Labs/Micro/Reports
Lab Data
12/07/24 03:44
12/07/24 03:44
Laboratory Results
12/06/24 12/06/24 12/06/24
18:36 21:09 22:59
pH 7.39 7.36 7.38
pCO2 43 41 40
pO2 121 H 139 H 70 L
HCO3 26.0 23.2 23.7
O2 Delivery Level
12/07/24 12/07/24
03:44 05:21
pH 7.36 7.38
pCO2 44 43
pO2 167 H 135 H
HCO3 24.9 25.4
O2 Delivery Level
--- NOTE | 2024-12-07 07:51 | PTCARENOTE ---
Patient received from overnight caregiver RN; AAOx3, responds to verbal stimulation from RN and follows commands/nods head appropriately; Drowsy and lightly sedated; VSS; NSR with ST and occasional PVC's on monitor; Epicardial V-wire present with temporary
pacemaker settings 50/10/0.8; +1 B/L upper extremity edema and trace B/L LE edema; +1 DP and radial pulses; ETT 8.0 at 23 cm at right lip, subglottic suction port present; Ventilator settings A/C 16/500/5 FiO2 60%; SpO2 95-98%; Chest tubes x2
connected to -20 cm wall suction draining serosanguineous drainage - no air leak, tidaling, or crepitus noted; Hypoactive BS; OGT connected to low intermittent wall suction draining brown liquid drainage - marked at 63 cm at lip; Rivera catheter
draining clear, yellow urine; B/L knee incisions glued, approximated, and CARBURIZER - CDI, right groin puncture glued, approximated, and CARBURIZER - CDI, sternum midline incision glued, approximated, and CARBURIZER - CDI; RIJ cordis with SLIC, left radial A-line in
place - all lines zeroed and level; Dobutamine, norepinephrine, propofol, and fentanyl drips infusing - see nursing flowsheets for further details; See nursing documentation for further information
[2024-12-07] MEDS: SUBLIMAZE 50 MCG IV (08:10)
--- NOTE | 2024-12-07 08:29 | W.PN.UPDATE ---
Update Note
Progress Note Update
Bronchoscopy note
Indications: Persistent mucous plugging, worsening hypoxia, VDRF
Informed consent: Patient was obtained at the bedside, patient nodded appropriately consent. Procedure also done on a semiurgent basis due to persistent mucous plugging
Findings: 6 cc of 4% lidocaine administered to achieve topical anesthesia. Therapeutic bronchoscope advanced via ET tube. Patient maintained on 100% FiO2, propofol, fentanyl. There were moderate secretions bilaterally but significant thick
secretions throughout the left lower lobe and lingula. Bronchoscope required flushing due to plugging of mucus. There was mild bloody secretions, likely from persistent plugging, mild scope trauma. Airway was clear. Left lower lobe was lavaged
and sent for bacterial culture. There were some mild secretions in the right lung, the right upper lobe, right lower lobe also cleared. Kathie sharp, all segments evaluated and unremarkable at termination of case
Throughout, saturation was stable.
Ramped up airway clearance
Support bed, Mucomyst, nebulizer therapy, steroids
Consider ventilator wean this morning and reassess for either repeat bronchoscopy and/or extubation
Patient will be at risk for recurrent plugs given severity of underlying lung disease
Reviewed with CT surgery team
[2024-12-07] MEDS: DIPRIVAN 100 IV (08:30)
[2024-12-07] MEDS: FLOVENT 110 MCG INHALER 4 PUFF INH (08:32)
[2024-12-07] MEDS: LIDOCAINE 4% PATCH TOPICAL (08:48)
[2024-12-07] MEDS: PLAVIX 75 MG PO (08:50)
[2024-12-07] MEDS: MIRALAX 17 GRAMS TUBE (08:51)
[2024-12-07] MEDS: SENOKOT-S 1 TABLET PO ×2 (08:51→22:32)
[2024-12-07] MEDS: SOLU-MEDROL PF 30 MG IV ×2 (08:51→22:33)
[2024-12-07] MEDS: LOW STRENGTH ASPIRIN 81 MG PO (08:51)
[2024-12-07] MEDS: PROTONIX 40 MG PO (08:51)
[2024-12-07] MEDS: BACTROBAN 2% OINTMENT 1 APPLIC NASAL ×2 (08:51→22:31)
[2024-12-07 09:04] LABS: Glucose - Point of Care 193 mg/dl (70-99)
[2024-12-07 10:49] LABS: B.E. 2.9 mmol/L; HCO3 27.9 mmol/L (21-28); O2 Saturation % 96.6 % (94-98); PCO2 44 mmHg (35-48); PO2 80 mmHg (83-108); Potassium 4.8 mMOL/L (3.5-5.1); Sodium 135 mMOL/L (136-145)
--- NOTE | 2024-12-07 11:00 | PTCARENOTE ---
Patient had bronchoscopy at bedside by MD López; Fentanyl bolus given and Fentanyl/Propofol infusions adjusted for pain and sedation levels during bronchoscopy; Patient switched to Sport Bed for percussion and vibration; CXR completed at bedside;
FiO2 adjusted to 40% by RT
--- NOTE | 2024-12-07 11:21 | PTCARENOTE ---
Spontaneous breathing trial started at 1115 - placed on CPAP/PSV by RT at bedside; Fentanyl and Propofol infusions turned off for breathing trial; Patient denies any pain at this time
[2024-12-07 12:01] LABS: Glucose - Point of Care 182 mg/dl (70-99)
[2024-12-07 12:14] LABS: B.E. 3.1 mmol/L; HCO3 27.9 mmol/L (21-28); O2 Saturation % 97.7 % (94-98); PCO2 43 mmHg (35-48); PO2 153 mmHg (83-108)
--- NOTE | 2024-12-07 13:15 | PTCARENOTE ---
ABG reviewed with CVNP Kathleen Byrd; Patient extubated at 1310 and placed on 10L Midflow NC; Patient coughing up andrade mucous with extubation; IS 1000 ml
[2024-12-07] MEDS: FERRLECIT 110 MG IV (13:18)
[2024-12-07] MEDS: NSS 500 IV (14:08)
--- NOTE | 2024-12-07 15:02 | CM ---
Chart reviewed. Patient extubated lying in bed. Patient is independent of ADLS, lives with his daughter 18 and 16, in a 1 [address], full flight of stairs to enter, wears O2 prn. Plan is for the patient to return home with CT Transitional RN. CM to
follow
[2024-12-07 16:06] LABS: Glucose - Point of Care 196 mg/dl (70-99)
--- NOTE | 2024-12-07 16:47 | PTCARENOTE ---
Echo completed at bedside; Oxygen weaned to 5L Midflow NC; Patient OOB in chair with assist x2; Deep breathing and coughing continued to be encouraged; Patient eating dinner in chair
[2024-12-07] MEDS: LIPITOR 40 MG PO (16:57)
--- NOTE | 2024-12-07 20:45 | PTCARENOTE ---
Report received from DHEERAJ Hay. Walking rounds done. Pt awake, alert , oriented x 4. Speech clear. Equal strength x 4. On 5L/Midflow. Sats 96-97%. On sport bed, receiving percussion therapy q2 hrs for 10 min. Manually turning pt q 2 hrs. BBS present.
More air movement to L lung. Decreased throughout. Decreased to L base. CDB, IS, and flutter valve encouraged q 1 hr while awake. IS peak 1000 mls. No c/o dyspnea. Pt in ST-SR. Dobutamine at 2 mcg/kg/min. Audible heart tones. No rub. Normal radial
pulses. Weak B DP pulses. V wire to temp pacer. VVI, rate 50, mA 10, sens 0.8. Mediastinal CT x 2, to -20 cm suction. Belly soft, nontender. Hypoactive bs x 4. Tolerating clears. Rivera with clear, yellow urine. No c/o pain. Ongoing plan of care.
[2024-12-07] MEDS: FLOVENT 110 MCG INHALER 2 PUFF INH (21:00)
[2024-12-07 22:16] LABS: Glucose - Point of Care 128 mg/dl (70-99)
[2024-12-07 22:21] LABS: B.E. 4.2 mmol/L; HCO3 28.4 mmol/L (21-28); O2 Saturation % 97.1 % (94-98); PCO2 40 mmHg (35-48); PO2 93 mmHg (83-108); Potassium 4.3 mMOL/L (3.5-5.1)
[2024-12-07] MEDS: REMOVE LIDOCAINE PATCH 1 PATCH REMOVE (22:31)
[2024-12-08] VITALS (27 sets, daily range): BP systolic 96–151; BP diastolic 53–82; PULSE 106; O2SAT 92–96; BMI 25.4
--- NOTE | 2024-12-08 00:45 | PTCARENOTE ---
Dobut down to 1 mcg/kg/min at 2230. MVO2 checked: 78.7. PA aware. Pt given CHG bath. Face washed. Pt brushed teeth. New gown and leads applied. Percussion q 2 hours as ordered. No c/o pain.
--- NOTE | 2024-12-08 02:38 | W.PN.CT ---
Today's Communication / Plan
-
-pod #3
-looks and feels better. Hemodynamically and neurologically intact. Had 2 min of a-fib overnight
-s/p bronchoscopy 12/07 with thick bloody secretions, extubated at noon 12/07
-pOx 98% on 5 L midflow overnight- Support bed with percussion q2 hrs, Mucinex, Duoneb qid, iv Solumedrol q12. Appreciate Pulmonary input
-weaned Dobut off overnight. mVO2 off Dobut is 77.0
-CT output: 2 meds 60/140 in 12/24 hrs
-follow Hg- 7.1 today (7.6 on 12/07, 8.6 on 12/06, 9.9 on 12/05)
-auto-diuresed 1409/2044 in 12/24 hrs
-holding BB- ? resume if ok with Pulmonary
-encourage OOB, IS
Assessment / Plan
-
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 Tao on 12/05/24, pod #3
- Intraop CYN: LVEF pre and postop 60% with no new regional wma. He had baseline mild mitral valve insufficiency that remained the same and looked slightly better after surgery.
- HTN
- HLD
- COPD with moderate disease on PFTs (FEV1 48%)- on home O2 prn
- Asthma/ mild emphysema
- Prostate adenocarcinoma, diagnosed 2.5 months ago
- Hx smoking 2 ppd for 40 yrs, quit 10 yrs ago
- HgA1c 5.2%
- Acute postop blood loss anemia- stable, no transfusion
- Acute postop atelectasis
- Acute postop hypovolemia with subsequent hypervolemia
- Acute postop mucous plugging of the L lung with respiratory failure, required urgent re-intubation- s/p bronch 12/07 with thick bloody secretions, extubated 12/07
- Acute postop a-fib- very brief 2 min on 12/[address] 12/06/24:
1. ACUTE COMPLETE PROXIMAL ENDOBRONCHIAL OCCLUSION of the left upper and lower lobe bronchi secondary to endobronchial mucous plugging.
2. NEAR COMPLETE POSTOBSTRUCTIVE ATELECTASIS of the LEFT LOWER LOBE with associated left lung volume loss.
3. Small bilateral pleural effusions.
4. Mild bilateral upper lobe centrilobular emphysema.
5. Minimal left apical pneumothorax.
6. Moderate amount of soft tissue emphysema in the anterior mediastinum, lower neck, and upper anterior abdominal wall.
7. Recent midline sternotomy, CABG surgery, and left atrial appendage exclusion.
8. Mediastinal chest tubes and right IJ central venous catheter in place.
9. No PE
Discussed patient care with: Nursing and Care Team
Subjective
-
Date of Service: December 08, 2024
Objective Data
-
PT 16.7 Sec (11.4-14.6) H 12/05/24 16:40
INR 1.30 12/05/24 16:40
APTT 32.9 Sec (23.4-35.0) 12/05/24 16:40
Vital Signs
Vital Signs
Temp Pulse Resp BP Pulse Ox
98.1 F 97 18 115/70 96
12/08/24 00:00 12/08/24 01:15 12/08/24 01:15 12/08/24 01:00 12/08/24 01:15
CT Intake/Output/Weight
12/07/24 12/07/24 12/08/24
06:59 18:59 06:59
Intake Total 444.0 / 1990.2 865.1 / 1024.8 159.7 / 1024.8
Output Total 685 / 1370 715 / 1650 935 / 1650
Balance -241.0 / 620.2 150.1 / -625.2 -775.3 / -625.2
SaO2: 96
Physical Exam
-
General: Awake and AOx3
Cardiovascular: Regular rate & rhythm, No Murmurs and No Rub
Respiratory: Decreased Breath Sounds
Sternum: Stable
Incision: Clean, Dry and Intact
Extremities: No Edema
Abdomen: soft, nontender, nondistended
Data Reviewed
-
Lab Results: Results Reviewed
Medications: Active Meds Reviewed
Chest X-Ray: Report Reviewed and Image Reviewed
ECG: Report Reviewed and Image Reviewed
--- NOTE | 2024-12-08 04:45 | PTCARENOTE ---
Addendum entered by Monroe Worley RN 12/08/24 07:52:
Dobut gtt off at 0130 per order of PA.
Original Note:
Pt awake. Coughing at times. Lungs auscultated with some expiratory wheezing L>R. Sats 94-95% on 5L/midflow. WEIGHT CHECKER called to bedside for nebulizer. Chest percussion performed on bed. IS and flutter valve done with pt. Sats 94-96%. Pt encouraged to
cough and expectorate his sputum.
Noted pt was in SR, rate 80's. Looked through EKG records. Pt with 2 brief runs of AF at 0352 and 0354. The latter run of AF had a conversion pause, V-paced beat, then SR 80's. PIYUSH Jasmine notified. EKG strips placed into pt chart.
[2024-12-08] MEDS: DUONEB 3 ML INH ×5 (04:53→21:12)
[2024-12-08 05:49] LABS: Hematocrit 21.1 % (39.0-52.0); Hemoglobin 7.1 g/dL (13.0-18.0); Mean Corp Hgb Conc. 33.6 g/dL (33.0-37.0); Mean Corpuscular Volume 88.7 fL (80.0-94.0); Platelet Count 197 10^3/uL (130-400); Red Cell Dist. Width 15.0 % (11.5-14.5)
[2024-12-08] MEDS: TYLENOL 1000 MG PO ×3 (06:03→22:30)
[2024-12-08 06:14] LABS: Blood Urea Nitrogen 20 mg/dl (9-20); Calcium 8.5 mg/dl (8.4-10.2); Carbon Dioxide 30 mmol/L (22-30); Chloride 106 mmol/L (98-107); Estimated Creatinine Clearance 76 ml/min; Glucose 173 mg/dl (70-99); Magnesium 2.7 mg/dl (1.6-2.3); Potassium 4.7 mmol/L (3.5-5.1); Sodium 139 mmol/L (135-145); eGFR > 60.00
--- NOTE | 2024-12-08 06:28 | PTCARENOTE ---
Nicole d/c at 0610. Pt OOB to chair with 2 assist. Denies lightheadedness, dizziness. Weighed on standing scale and helped to chair. A-line BP 121/53. Pt in ST 110's. O2 sats 96% on 7L/midflow. PA with all lab results.
--- NOTE | 2024-12-08 06:47 | W.PN.INTV ---
Today's Communication / Plan
Recommendations
Decrease methylprednisolone to once a day, hope to wean off in the next 24 to 48 hours
Change Flovent to budesonide
Okay for beta-adilson therapy from pulmonary standpoint
Continue support bed, incentive spirometry, airway clearance, Mucinex
Continue Mucomyst
Assessment
-
79-year-old male with hypertension, hyperlipidemia, diabetes, COPD on home oxygen FEV1 40%, DLCO 43%, prostate cancer presents with chest pressure, found to have multivessel coronary disease. He is status post CABG x 3 with left atrial clip. We
are asked to help from critical care standpoint.
S/p CABG x 3 12/05/24
Extubated 12/05
Reintubated 12/06 for mucous plugging, worsening hypoxia, extubated 12/07
Status post bedside bronchoscopy 12/07
Significant mucous plugs left lower lobe, bloody secretions
Left lung atelectasis, improved
S/p NSTEMI, admitted 12/01/2024
Multivessel coronary disease, normal EF
Chest discomfort, shortness of breath
Postoperative anemia
Postoperative hypotension
Conditions present prior to admission
Hypertension, hyperlipidemia
Diabetes
COPD on home oxygen
History of prostate cancer, treated with homeopathic medicine
[id number] history of smoking, quit 2014
Plan/recommendations
At this time, patient appears to be objectively and subjectively improved
Extubated yesterday following bronchoscopy, tolerating airway clearance measures, chest percussion
Steroids started due to mucous plugging
cough seems to be improved CT angiogram negative for pulm embolism, RV irritation likely secondary to acute hypoxia
Off pressors
Moving forward
Continue with management per CT surgery
Off insulin
Off pressors
Chest tube output minimal
Did not require blood products, hemoglobin today 7.1
Okay for beta-adilson therapy from pulmonary standpoint
Patient with significant emphysema, COPD as outpatient
Continue with chest percussion
Mucomyst twice daily
DuoNebs 4 times daily, every 4 as needed, Flovent twice daily, changed to budesonide twice a day
Remains on methylprednisolone, will decrease dose to once a day and wean rapidly off
On Stiolto as outpatient, can resume as outpatient
Sequential teds for DVT prophylaxis left lower extremity
Reviewed with critical care nursing.
Subjective Dataa
Subjective Data
Date of Service:
Date of Service: December 08, 2024
Subjective:
Patient is sitting in chair, eating breakfast. Feels much better. Appears stronger. Has improved cough. Tolerating support bed percussion, oxygen weaned down to 5 L
Objective Data
Data Reviewed
Vital Signs / I&O / Oxygen:
Vital Signs
Temp Pulse Resp BP Pulse Ox
97.8 F 122 22 131/63 95
12/08/24 04:00 12/08/24 06:15 12/08/24 06:15 12/08/24 06:00 12/08/24 06:00
Intake and Output
12/06/24 12/07/24 12/08/24
06:59 06:59 06:59
Intake Total 2093.4 / 2139.9 1949.6 / 1990.2 1124.8 / 1124.8
Output Total 1160 / 1210 1330 / 1370 2185 / 2185
Balance 933.4 / 929.9 619.6 / 620.2 -1060.2 / -1060.2
SaO2 [CPAP/PSV] 98
SaO2 [A/C] 95
SaO2 [CPAP] 98
SaO2 [SIMV] 98
SaO2 95
Nasal Cannula flow liters per 7
minute
Physical Exam
General: Comfortable and Other (IJ, A-line, chest tube)
HEENT: Normocephalic and Anicteric
Cardiovascular: S1-S2, Regular Rhythm, Murmur (n) and Rub (n)
Respiratory: Wheeze (n), Crackles (Few at base), Rhonchi (n), Non-Labored Respirations, Crepitus (n), Chest Tube and Other (Slight decreased left base, no egophony)
GI: Soft, Non Distended and Non Tender
Neurology: Awake and Alert
Skin: Cyanosis (n) and Rash (n)
Labs/Micro/Reports
Lab Data
12/08/24 05:30
12/08/24 05:30
Laboratory Results
12/07/24 12/07/24 12/07/24
10:34 10:36 12:00
pH 7.41 Cancelled 7.42
pCO2 44 Cancelled 43
pO2 80 L Cancelled 153 H
HCO3 27.9 Cancelled 27.9
O2 Delivery Level Cancelled Not Reportable
12/07/24 12/08/24
22:05 00:25
pH 7.46 H Cancelled
pCO2 40 Cancelled
pO2 93 Cancelled
HCO3 28.4 H Cancelled
O2 Delivery Level Cancelled
Microbiology
12/07/24 08:23 Bronch Left Lower Lobe Gram Stain - Preliminary
[2024-12-08] MEDS: NOVOLOG FLEXPEN-MODERATE RESISTANCE 3 UNITS SC ×3 (07:31→17:10)
[2024-12-08 07:33] LABS: Glucose - Point of Care 202 mg/dl (70-99)
[2024-12-08] MEDS: FLOVENT 110 MCG INHALER 2 PUFF INH (08:18)
[2024-12-08] MEDS: MAGNESIUM OXIDE 500 MG PO (08:30)
[2024-12-08] MEDS: MUCINEX 1200 MG PO ×2 (08:30→20:15)
[2024-12-08] MEDS: PROTONIX 40 MG PO (08:30)
[2024-12-08] MEDS: PLAVIX 75 MG PO (08:30)
[2024-12-08] MEDS: PACERONE 200 MG PO ×2 (08:31→16:06)
[2024-12-08] MEDS: MIRALAX 17 GRAMS TUBE (08:31)
[2024-12-08] MEDS: LIDOCAINE 4% PATCH TOPICAL (08:31)
[2024-12-08] MEDS: SENOKOT-S 1 TABLET PO ×2 (08:31→20:15)
[2024-12-08] MEDS: BACTROBAN 2% OINTMENT 1 APPLIC NASAL ×2 (08:31→20:14)
[2024-12-08] MEDS: NEURONTIN 100 MG PO ×3 (08:31→22:29)
[2024-12-08] MEDS: LOW STRENGTH ASPIRIN 81 MG PO (08:31)
--- NOTE | 2024-12-08 08:39 | PTCARENOTE ---
Received pt from maintenance supervisor 2nd shift RN at 0700; pt AAOx3 and resting comfortably in chair; Sinus Tachycardia on monitor and VSS; Epicardial V wires set to back up VVI 50/10/0.8 and no pacing noted; RIJ Cordis/SLIC, Right A-line and pIV x2 all lines leveled
and zeroed; Lungs diminished; CT x2 t -20 wall suction, no air leak and no crepitus noted; pt DTV at 1200 for post Rivera removal; palpable radial pulses and weak lower extremity DP; trace generalized edema; all surgical sites C/D/I; see nursing
documentation for further details.
--- NOTE | 2024-12-08 09:02 | PTCARENOTE ---
Epicardial V wire pulled by CTPA.
[2024-12-08] MEDS: SOLU-MEDROL PF 30 MG IV (09:39)
[2024-12-08] MEDS: LASIX 40 MG IV (09:41)
[2024-12-08] MEDS: SOLU-MEDROL PF IV (09:54)
--- NOTE | 2024-12-08 10:34 | PTCARENOTE ---
SLIC, A-line and CT x2 removed per CTPA order; pt resting comfortably in chair awaiting cardiac rehab.
[2024-12-08] MEDS: LOPRESSOR 12.5 MG PO (11:01)
[2024-12-08 11:44] LABS: Glucose - Point of Care 228 mg/dl (70-99)
--- NOTE | 2024-12-08 12:17 | PTCARENOTE ---
Assessment unchanged; pt resting comfortably in chair; Sinus Tachycardia on monitor and VSS.
[2024-12-08] MEDS: FERRLECIT 110 MG IV (13:59)
[2024-12-08] MEDS: LOPRESSOR 5 MG IV ×2 (14:12→16:14)
--- NOTE | 2024-12-08 14:16 | PTCARENOTE ---
HR 130s BP 146/76; updated CTPA, Lopressor 5mg IV x1 ordered and given.
[2024-12-08] MEDS: PULMICORT 0.5 MG INH (15:32)
--- NOTE | 2024-12-08 17:00 | PTCARENOTE ---
Sinus Tachycardia on monitor and VSS; CTPA updated; assessment unchanged; pt ambulating hallways with RN.
[2024-12-08] MEDS: LIPITOR 40 MG PO (17:10)
[2024-12-08 17:13] LABS: Glucose - Point of Care 212 mg/dl (70-99)
[2024-12-08] MEDS: MAGNESIUM OXIDE PO (19:19)
[2024-12-08] MEDS: REMOVE LIDOCAINE PATCH REMOVE (19:19)
[2024-12-08] MEDS: LOPRESSOR 25 MG PO (20:15)
[2024-12-08] MEDS: NSS 500 IV (20:15)
--- NOTE | 2024-12-08 20:30 | PTCARENOTE ---
Patient received OOB in chair watching television and working on computer. Patient A+A+Ox3. No neurological deficits noted. Patient assisted to bathroom. Sternal precautions. Mild FORDE. No BM. Positive flatus. Voided 100 ml bruno urine.
Patient assisted to bed. Remains on Continuous Lateral Rotation bed - Percussion used to assist mobilization of secretions. Neb TX. Midflow oxygen 6L. Chest tube dressing intact. Sinus Tachycardia. Heart rate 100's. Blood pressure 151/82
(103). Patient with no c/o chest pain, pressure or discomfort. Abdomen soft, round, nontender. Normoactive bowel sounds. Generalized edema. Positive, palpable pulses. Sternal incision intact - Surgical adhesive - Open to air. Right groin
puncture site intact. Right lower leg incision intact. Left upper, inner thigh incision intact. Left lower leg incision intact. Patient with no c/o back or flank pain. Right I.J. Cordis. Assessment as documented.
[2024-12-08] MEDS: PACERONE 400 MG PO (22:30)
[2024-12-09] VITALS (19 sets, daily range): BP systolic 93–135; BP diastolic 49–69; O2SAT 92–93; BMI 25.6
--- NOTE | 2024-12-09 00:30 | PTCARENOTE ---
Patient sleeping without difficulty. No further changes from previous assessment.
[2024-12-09 05:08] LABS: Hematocrit 23.6 % (39.0-52.0); Hemoglobin 8.0 g/dL (13.0-18.0); Mean Corp Hgb Conc. 33.9 g/dL (33.0-37.0); Mean Corpuscular Volume 90.4 fL (80.0-94.0); Platelet Count 294 10^3/uL (130-400); Red Cell Dist. Width 15.0 % (11.5-14.5)
[2024-12-09 05:20] LABS: Blood Urea Nitrogen 39 mg/dl (9-20); Calcium 8.6 mg/dl (8.4-10.2); Carbon Dioxide 27 mmol/L (22-30); Chloride 100 mmol/L (98-107); Estimated Creatinine Clearance 35 ml/min; Glucose 139 mg/dl (70-99); Magnesium 2.7 mg/dl (1.6-2.3); Potassium 4.6 mmol/L (3.5-5.1); Sodium 135 mmol/L (135-145); Triglycerides 118 mg/dl (10-149); eGFR 47.36
--- NOTE | 2024-12-09 05:30 | PTCARENOTE ---
Patient A+A+Ox3. No neurological deficits noted. Patient resting in bed watching television. AM lab work collected and sent. New peripheral IV site placed - #22P left wrist. Patient assisted to bathroom - Minimal assistance - Voided. Standing
scale weight 69.9 kg. Patient given CHG bath, chest tube dressing changed and linens changed. Assessment/Interventions as documented.
[2024-12-09] MEDS: TYLENOL PO (05:42)
--- NOTE | 2024-12-09 05:43 | W.PN.CT ---
Today's Communication / Plan
-
-pod #4
-AT vs Afib yesterday, s/p IV metoprolol. BB increased to 25 mg BID and amio 400 TID
-s/p bronchoscopy 12/07 with thick bloody secretions, extubated at noon 12/07
-pOx 98% on 5 L midflow overnight- Support bed with percussion q2 hrs, Mucinex, Duoneb qid, iv Solumedrol q12. Appreciate Pulmonary input
-encourage OOB, IS
Assessment / Plan
-
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 Tao on 12/05/24, pod #4
- Intraop CYN: LVEF pre and postop 60% with no new regional wma. He had baseline mild mitral valve insufficiency that remained the same and looked slightly better after surgery.
- HTN
- HLD
- COPD with moderate disease on PFTs (FEV1 48%)- on home O2 prn
- Asthma/ mild emphysema
- Prostate adenocarcinoma, diagnosed 2.5 months ago
- Hx smoking 2 ppd for 40 yrs, quit 10 yrs ago
- HgA1c 5.2%
- Acute postop blood loss anemia- stable, no transfusion
- Acute postop atelectasis
- Acute postop hypovolemia with subsequent hypervolemia
- Acute postop mucous plugging of the L lung with respiratory failure, required urgent re-intubation- s/p bronch 12/07 with thick bloody secretions, extubated 12/07
- Acute postop a-fib- very brief 2 min on 12/[address] 12/06/24:
1. ACUTE COMPLETE PROXIMAL ENDOBRONCHIAL OCCLUSION of the left upper and lower lobe bronchi secondary to endobronchial mucous plugging.
2. NEAR COMPLETE POSTOBSTRUCTIVE ATELECTASIS of the LEFT LOWER LOBE with associated left lung volume loss.
3. Small bilateral pleural effusions.
4. Mild bilateral upper lobe centrilobular emphysema.
5. Minimal left apical pneumothorax.
6. Moderate amount of soft tissue emphysema in the anterior mediastinum, lower neck, and upper anterior abdominal wall.
7. Recent midline sternotomy, CABG surgery, and left atrial appendage exclusion.
8. Mediastinal chest tubes and right IJ central venous catheter in place.
9. No PE
Subjective
-
Date of Service: December 09, 2024
Objective Data
-
Lab Results
12/09/24 04:43
12/09/24 04:43
PT 16.7 Sec (11.4-14.6) H 12/05/24 16:40
INR 1.30 12/05/24 16:40
APTT 32.9 Sec (23.4-35.0) 12/05/24 16:40
Vital Signs
Vital Signs
Temp Pulse Resp BP Pulse Ox
98.0 F 88 16 110/62 98
12/09/24 05:10 12/09/24 05:15 12/09/24 05:10 12/09/24 05:10 12/09/24 05:15
CT Intake/Output/Weight
12/08/24 12/08/24 12/09/24
06:59 18:59 06:59
Intake Total 259.7 / 1124.8 190 / 780 590 / 780
Output Total 1470 / 2185 380 / 730 350 / 730
Balance -1210.3 / -1060.2 -190 / 50 240 / 50
SaO2: 98
Physical Exam
-
General: Awake, Oriented and AOx3
Cardiovascular: Regular rate & rhythm, No Murmurs and No Rub
Respiratory: Equal and Rhonchi
Sternum: Stable
Incision: Clean, Dry and Intact
Extremities: No Edema and No Erythema
Data Reviewed
-
Lab Results: Results Reviewed
Medications: Active Meds Reviewed
Chest X-Ray: Report Reviewed
ECG: Report Reviewed
--- NOTE | 2024-12-09 06:58 | W.PN.INTV ---
Today's Communication / Plan
Recommendations
Continue current airway clearance regimen
No change with methylprednisolone dosing, every 24 hours
Continue with Sport bed
Chest tube removed, small left pleural effusion noted per chest x-ray. Follow clinically
Out of bed to chair, ambulate
Assessment
-
79-year-old male with hypertension, hyperlipidemia, diabetes, COPD on home oxygen FEV1 40%, DLCO 43%, prostate cancer presents with chest pressure, found to have multivessel coronary disease. He is status post CABG x 3 with left atrial clip. We
are asked to help from critical care standpoint.
S/p CABG x 3 12/05/24
Extubated 12/05
Reintubated 12/06 for mucous plugging, worsening hypoxia, extubated 12/07
Status post bedside bronchoscopy 12/07
Significant mucous plugs left lower lobe, bloody secretions
Left lung atelectasis, improved
S/p NSTEMI, admitted 12/01/2024
Multivessel coronary disease, normal EF
Chest discomfort, shortness of breath
Postoperative anemia
Postoperative hypotension
Conditions present prior to admission
Hypertension, hyperlipidemia
Diabetes
COPD on home oxygen
History of prostate cancer, treated with homeopathic medicine
[id number] history of smoking, quit 2014
Plan/recommendations
At this time, patient appears to be objectively and subjectively improved
Tolerating support bed, chest percussion therapy
Steroids started due to mucous plugging, decrease to once a day
cough seems to be improved CT angiogram negative for pulm embolism, RV irritation likely secondary to acute hypoxia
Repeat echocardiogram with improved RV function
Off pressors
Beta-adilson started, remains on amiodarone
Moving forward
Continue with management per CT surgery
Off insulin
Off pressors
Chest tube discontinued
Hemoglobin 8.0 status post transfusion
Continue beta-adilson, rate control with Amio per CT surgery
Chest exam with good air exchange
Patient with significant emphysema, COPD as outpatient
Continue with chest percussion
Mucomyst twice daily
DuoNebs 4 times daily, every 4 as needed, budesonide twice a day
Remains on methylprednisolone, continue once a day
On Stiolto as outpatient, can resume as outpatient
Depending on how he does, would taper steroids off quickly within 3 to 5 days once ambulatory
Sequential teds for DVT prophylaxis left lower extremity
Recommend pulmonary follow-up in about 2 months
Reviewed with critical care nursing. Pulmonary will continue to follow
Subjective Dataa
Subjective Data
Date of Service:
Date of Service: December 09, 2024
Subjective:
Patient receiving chest percussion therapy during my evaluation. Responding appropriately with cough. Oxygen has been weaned down to 2 L, 93%. Otherwise patient denies nausea, appears to be in good spirits
Objective Data
Data Reviewed
Vital Signs / I&O / Oxygen:
Vital Signs
Temp Pulse Resp BP Pulse Ox
98.0 F 88 16 110/62 98
12/09/24 05:10 12/09/24 05:15 12/09/24 05:10 12/09/24 05:10 12/09/24 05:46
Intake and Output
12/07/24 12/08/24 12/09/24
06:59 06:59 06:59
Intake Total 1949.6 / 1989.2 1124.8 / 1124.8 780 / 780
Output Total 1330 / 1370 2185 / 2185 730 / 730
Balance 619.6 / 620.2 -1060.2 / -1060.2 50 / 50
SaO2 [CPAP/PSV] 98
SaO2 [A/C] 95
SaO2 [CPAP] 98
SaO2 [SIMV] 98
SaO2 98
Nasal Cannula flow liters per 4
minute
Physical Exam
General: Comfortable
HEENT: Normocephalic and Anicteric
Cardiovascular: S1-S2, Regular Rhythm, Murmur (n) and Rub (n)
Respiratory: Wheeze (n), Crackles (Few at base), Rhonchi (n), Non-Labored Respirations, Crepitus (n) and Other (Slight decreased left base, no egophony)
GI: Soft, Non Distended and Non Tender
Neurology: Awake, Alert and No Motor Deficits (Moves all extremities)
Skin: Cyanosis (n) and Rash (n)
Labs/Micro/Reports
Lab Data
12/09/24 04:43
Microbiology
12/07/24 08:23 Bronch Left Lower Lobe Respiratory Culture - Preliminary
Usual Respiratory Ashley
12/07/24 08:23 Bronch Left Lower Lobe Gram Stain - Preliminary
[2024-12-09] MEDS: PULMICORT 0.5 MG INH ×2 (07:41→19:42)
[2024-12-09] MEDS: DUONEB 3 ML INH ×4 (07:41→19:42)
[2024-12-09] MEDS: MAGNESIUM OXIDE PO (08:00)
--- NOTE | 2024-12-09 08:15 | PTCARENOTE ---
pt received from previous RN, oriented, in bed. SR/ST on the monitor, HR 90-100s. SBP 120s. palpable pulses. pt on 2LNC, 96-97% POX. lungs coarse anteriorly, +moist productive cough. RT at bedside for treatment and percussive treatment done in bed.
IS and Acapella encouraged. pt abdomen round, distended. hypoactive BS, denies n/v. poor appetite, pt c/o constipation. MoM PRN given. pt states was using urinal overnight to void. sternal incision JASON and approximated. chest tube site c/d/i.
surgical sites intact. RIJ cordis maintained. PIV. see worklist for VS, I&O, and assessment.
[2024-12-09] MEDS: MUCINEX 1200 MG PO ×2 (08:20→19:49)
[2024-12-09] MEDS: SENOKOT-S 1 TABLET PO ×2 (08:20→19:50)
[2024-12-09] MEDS: MIRALAX 17 GRAMS TUBE (08:21)
[2024-12-09] MEDS: NEURONTIN 100 MG PO ×3 (08:21→21:59)
[2024-12-09] MEDS: PROTONIX 40 MG PO (08:21)
[2024-12-09] MEDS: PACERONE 400 MG PO ×3 (08:21→22:01)
[2024-12-09] MEDS: LOPRESSOR 25 MG PO ×2 (08:21→19:47)
[2024-12-09] MEDS: LIDOCAINE 4% PATCH 1 PATCH TOPICAL (08:21)
[2024-12-09] MEDS: MILK OF MAGNESIA 30 ML PO (08:21)
[2024-12-09] MEDS: SOLU-MEDROL PF 30 MG IV (08:21)
[2024-12-09] MEDS: PLAVIX 75 MG PO (08:21)
[2024-12-09] MEDS: LOW STRENGTH ASPIRIN 81 MG PO (08:22)
[2024-12-09] MEDS: BACTROBAN 2% OINTMENT 1 APPLIC NASAL (08:25)
[2024-12-09 09:19] LABS: Glucose - Point of Care 142 mg/dl (70-99)
[2024-12-09] MEDS: NOVOLOG FLEXPEN-MODERATE RESISTANCE SC ×2 (09:23→14:06)
--- NOTE | 2024-12-09 09:29 | PTCARENOTE ---
1 unit PRBC transfusing as ordered. pt states feels urge to void but unable, bladder scanned for 872ml, PIYUSH Goldstein aware. pt straight cath'd as ordered for 900ml, pt states he feels better.
[2024-12-09 10:59] LABS: Blood Urea Nitrogen 38 mg/dl (9-20); Calcium 8.5 mg/dl (8.4-10.2); Carbon Dioxide 30 mmol/L (22-30); Chloride 102 mmol/L (98-107); Estimated Creatinine Clearance 33 ml/min; Glucose 180 mg/dl (70-99); Potassium 4.3 mmol/L (3.5-5.1); Sodium 136 mmol/L (135-145); eGFR 43.83
--- NOTE | 2024-12-09 12:00 | PTCARENOTE ---
pt VSS, OOB in chair. pt ambulated in hallway on 2LNC, tolerated well. IS and Acapella encouraged. 2V CXR completed.
[2024-12-09] MEDS: NSS IV (14:21)
[2024-12-09] MEDS: CITROMA 300 ML PO (15:13)
[2024-12-09] MEDS: TYLENOL 1000 MG PO ×2 (15:13→21:59)
--- NOTE | 2024-12-09 16:03 | PTCARENOTE ---
pt VSS, pt has not voided since am, unable to void. pt bladder scanned for 815ml, per PA, starr placed, 900ml initial output. pt c/o constipation, ordered Mag Citrate given.
[2024-12-09] MEDS: LIPITOR 40 MG PO (17:15)
[2024-12-09] MEDS: NOVOLOG FLEXPEN-MODERATE RESISTANCE 1 UNITS SC (17:18)
[2024-12-09 17:19] LABS: Glucose - Point of Care 199 mg/dl (70-99)
[2024-12-09] MEDS: MAGNESIUM OXIDE 500 MG PO (19:50)
--- NOTE | 2024-12-09 21:00 | PTCARENOTE ---
1899
Patient received from RN @ 1900. Patient sitting in chair comfortably w/ call owen in reach. AOx3. Pain - Denies, PRN, NSR on monitor. BP 111/60 HR 91. Heart sounds audible. Radial and pedal pulses present. trace generalized edema noted. POX
93% on 3 L NC. IS 1000. Lung sounds Upper course and lowers diminished bilaterally in bases. Bowel sounds present. BM X2 loose, liquid. Voiding clear yellow urine in starr . Sternal incision well approximated JASON. CT Dressing intact. Left
wrist 22 PIV patent and intact. Right IJ Cordis,S/L. Ambulated in room. See worklist for more assessment details.
[2024-12-09] MEDS: REMOVE LIDOCAINE PATCH REMOVE (21:59)
[2024-12-09] MEDS: CARDURA 0.5 MG PO (22:00)
[2024-12-10] VITALS (16 sets, daily range): BP systolic 84–119; BP diastolic 47–74; PULSE 84–85; O2SAT 96–97; BMI 25.1
--- NOTE | 2024-12-10 00:04 | PTCARENOTE ---
patient resting comfortably, Alert and Oriented, denies pain, ambulated to bathroom. Vital signs stable
--- NOTE | 2024-12-10 04:19 | PTCARENOTE ---
patient alert and oriented, has productive wet cough, asked for neb treatment, PV treatment mode preformed every two hour while in bed on Sport bed.
[2024-12-10] MEDS: DUONEB 3 ML INH ×5 (04:21→19:29)
[2024-12-10 04:44] LABS: Blood Urea Nitrogen 39 mg/dl (9-20); Calcium 8.5 mg/dl (8.4-10.2); Carbon Dioxide 35 mmol/L (22-30); Chloride 103 mmol/L (98-107); Estimated Creatinine Clearance 59 ml/min; Glucose 125 mg/dl (70-99); Magnesium 3.8 mg/dl (1.6-2.3); Potassium 4.6 mmol/L (3.5-5.1); Sodium 137 mmol/L (135-145); eGFR > 60.00
[2024-12-10 05:00] LABS: Hematocrit 25.0 % (39.0-52.0); Hemoglobin 8.4 g/dL (13.0-18.0); Mean Corp Hgb Conc. 33.6 g/dL (33.0-37.0); Mean Corpuscular Volume 90.3 fL (80.0-94.0); Platelet Count 266 10^3/uL (130-400); Red Cell Dist. Width 14.9 % (11.5-14.5)
[2024-12-10] MEDS: TYLENOL 1000 MG PO ×3 (05:53→23:03)
--- NOTE | 2024-12-10 05:59 | W.PN.CT ---
Today's Communication / Plan
-
-pod #5
-AT vs Afib 12/08, s/p IV metoprolol. BB increased to 25 mg BID and amio 400 TID
-Cr increased to 1.5 yesterday, 0.9 this AM. s/p 1 U PRBC. retaining urine multiple times, now starr back in and on Cardura (allergy to Flomax)
-s/p bronchoscopy 12/07 with thick bloody secretions, extubated at noon 12/07
-continue ASA, atorvastatin, Plavix, metoprolol 25 mg, amio
-down to 2 L NC- Support bed with percussion q2 hrs, Mucinex, Duoneb qid, Pulmicort, solumedrol 30mg q24. Appreciate Pulmonary input
-encourage OOB, IS
Assessment / Plan
-
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 Tao on 12/05/24, pod #5
- Intraop CYN: LVEF pre and postop 60% with no new regional wma. He had baseline mild mitral valve insufficiency that remained the same and looked slightly better after surgery.
- HTN
- HLD
- COPD with moderate disease on PFTs (FEV1 48%)- on home O2 prn
- Asthma/ mild emphysema
- Prostate adenocarcinoma, diagnosed 2.5 months ago
- Hx smoking 2 ppd for 40 yrs, quit 10 yrs ago
- HgA1c 5.2%
- Acute postop blood loss anemia- stable, no transfusion
- Acute postop atelectasis
- Acute postop hypovolemia with subsequent hypervolemia
- Acute postop mucous plugging of the L lung with respiratory failure, required urgent re-intubation- s/p bronch 12/07 with thick bloody secretions, extubated 12/07
- Acute postop a-fib- very brief 2 min on 12/[address] 12/06/24:
1. ACUTE COMPLETE PROXIMAL ENDOBRONCHIAL OCCLUSION of the left upper and lower lobe bronchi secondary to endobronchial mucous plugging.
2. NEAR COMPLETE POSTOBSTRUCTIVE ATELECTASIS of the LEFT LOWER LOBE with associated left lung volume loss.
3. Small bilateral pleural effusions.
4. Mild bilateral upper lobe centrilobular emphysema.
5. Minimal left apical pneumothorax.
6. Moderate amount of soft tissue emphysema in the anterior mediastinum, lower neck, and upper anterior abdominal wall.
7. Recent midline sternotomy, CABG surgery, and left atrial appendage exclusion.
8. Mediastinal chest tubes and right IJ central venous catheter in place.
9. No PE
Subjective
-
Date of Service: December 10, 2024
Objective Data
-
Lab Results
12/10/24 04:45
12/10/24 04:04
PT 16.7 Sec (11.4-14.6) H 12/05/24 16:40
INR 1.30 12/05/24 16:40
APTT 32.9 Sec (23.4-35.0) 12/05/24 16:40
Vital Signs
Vital Signs
Temp Pulse Resp BP Pulse Ox
97.4 F 88 18 100/52 94
12/09/24 19:52 12/10/24 04:23 12/10/24 04:23 12/09/24 22:01 12/10/24 04:23
CT Intake/Output/Weight
12/09/24 12/09/24 12/10/24
06:59 18:59 06:59
Intake Total 590 / 780 340 / 760 420 / 760
Output Total 350 / 730 1975 / 2975 1000 / 2975
Balance 240 / 50 -1635 / -2215 -580 / -2215
SaO2: 94
Physical Exam
-
General: Awake and Oriented
Cardiovascular: Regular rate & rhythm, No Murmurs and Rub
Respiratory: Clear and Decreased Breath Sounds
Sternum: Stable
Incision: Clean, Dry and Intact
Extremities: No Edema
Data Reviewed
-
Lab Results: Results Reviewed
Medications: Active Meds Reviewed
Chest X-Ray: Report Reviewed
ECG: Report Reviewed
--- NOTE | 2024-12-10 06:41 | PTCARENOTE ---
PV treatment completed on patietn this morning 0630, BP 88/45 (58) informed provider, patient remains in bed for now.
[2024-12-10 07:13] LABS: Glucose - Point of Care 125 mg/dl (70-99)
[2024-12-10] MEDS: NOVOLOG FLEXPEN-MODERATE RESISTANCE SC (07:15)
[2024-12-10] MEDS: PULMICORT 0.5 MG INH ×2 (07:18→19:29)
[2024-12-10] MEDS: LIDOCAINE 4% PATCH TOPICAL (08:34)
[2024-12-10] MEDS: SENOKOT-S PO ×2 (08:35→20:09)
[2024-12-10] MEDS: MIRALAX TUBE (08:35)
[2024-12-10] MEDS: LOPRESSOR 25 MG PO ×2 (08:40→20:07)
[2024-12-10] MEDS: SOLU-MEDROL PF 30 MG IV (08:40)
[2024-12-10] MEDS: MUCINEX 1200 MG PO ×2 (08:40→20:07)
[2024-12-10] MEDS: NEURONTIN 100 MG PO ×3 (08:40→23:05)
[2024-12-10] MEDS: PROTONIX 40 MG PO (08:40)
[2024-12-10] MEDS: LOW STRENGTH ASPIRIN 81 MG PO (08:40)
[2024-12-10] MEDS: PLAVIX 75 MG PO (08:40)
[2024-12-10] MEDS: PACERONE 400 MG PO ×3 (08:40→23:05)
--- NOTE | 2024-12-10 08:52 | W.PN.CD ---
Today's Communication / Plan
-
remains in sinus
continue post op care per Ct surgery
optimize pulmonary care per Ct surgery and pulmonary critical care
Impression / Plan
-
Impression/Plan: 79-year-old male with hypertension, NIDDM (treated with tirzepatide; which he stopped 2 weeks ago), obesity, COPD (former smoker of 2 PPD x 40 years; quit 18 years ago), and prostate cancer admitted with NSTEMI.
-S/P 3V CABG (PETE to LAD, FRIMA Y-graft from PETE to OM, SVG to RPDA) with LAAL with Dr. Tao, 12/05/2024.
- in nsr
- continue psot op care per CT surgery
#NSTEMI/CAD
-Troponin peaked at 0.656.
-Echocardiogram shows preserved systolic function. LVEF 55-60%.
-Cardiac catheterization shows 90% ostial RCA, 90% distal LMCA.
-S/P 3V CABG (PETE to LAD, FRIMA Y-graft from PETE to OM, SVG to RPDA) with LAAL with Dr. Tao, 12/05/2024.
#AT vs Afib 12/08, per notes. Some strip with possible rate controlled afib. No arrhythmias on telemetry in last 24-48 hours
- currently on amio and metoprolol
-
-
#COPD/Hypoxic respiratory failure
-improved.
- pulmonary critical care following
- patient on O2 NCat home
- continue tx
#Hypertension: Pre op.
- monitor post op
#NIDDM2:
-Chronic, stable.
-Hemoglobin A1c = 5.2%.
-Per mnotes. Patient stated that he was on tirzepatide for a few years; stopped it 2 weeks ago because he thinks he is 'cured'.
#Prostate cancer
-Chronic.
-Currently using a homeopathic regimen.
#Overweight, BMI 24
Subjective/Interval History:
The patient developed new, acute hypoxic respiratory failure requiring NRB yesterday afternoon/evening (O2 sats down to the 70's).
CXR suggested atelectasis. Repeat echo showed new RV dilation with decreased function. CTPE negative for PE but did show significant atelectasis (likely mucous plugging).
Pulmonology called to bedside. Nasal trumpet placed. Deep suction with budesonide temporized SAO2, which increased to 100%.
The patient had consumed dinner, which prevented bedside bronchoscopy at the time. The plan was for bronchoscopy in the AM.
Given his status, the patient was reintubated and sedated overnight.
Even with invasive ventilation, the patient had occasional desaturations. Ultimately, FiO2 was decreased to 80% and PaO2 remained stable
Plan was for bronchoscopy this morning.
Hbg down to 7.6 this morning.
Weight up 1.4 kg from yesterday, > 4 kg from baseline.
DATA:
CTPE, 12/06/2024:
IMPRESSION:
1. ACUTE COMPLETE PROXIMAL ENDOBRONCHIAL OCCLUSION of the left upper and lower lobe bronchi secondary to endobronchial mucous plugging.
2. NEAR COMPLETE POSTOBSTRUCTIVE ATELECTASIS of the LEFT LOWER LOBE with associated left lung volume loss.
3. Small bilateral pleural effusions.
4. Mild bilateral upper lobe centrilobular emphysema.
5. Minimal left apical pneumothorax.
6. Moderate amount of soft tissue emphysema in the anterior mediastinum, lower neck, and upper anterior abdominal wall.
7. Recent midline sternotomy, CABG surgery, and left atrial appendage exclusion.
8. Mediastinal chest tubes and right IJ central venous catheter in place.
CABG,12/05/2024:
Procedure(s) Performed:
1. Standard Sternotomy with Aortic and Right Atrial Cannulation.
2. Bilateral Internal Mammary Artery Harvesting, In Situ PETE and Free HOWARD.
3. Multi Arterial Coronary artery bypass grafting x 3 (In situ PETE to LAD, HOWARD Y off PETE to OM, Ao to RSVG to RPDA).
4. Endoscopic vein harvesting of RLE and LLE.
5. Transesophageal echocardiography.
6. Placement of Temporary Atrial and Ventricular Pacing Wires.
7. Ligation of Left Atrial Appendage.
Cath 12/03/2024:
CONCLUSIONS
1. Right dominant circulation with a 90% lesion in the ostium of the RCA, a 50% lesion in the distal aspect of the proximal RCA, a 50% lesion in the mid RCA, a 50-60% lesion in the distal RCA immediately after the crux, and 90% lesion in the distal
margin of the left main coronary artery, a 40% lesion in the proximal LAD, a 40% lesion in between D1 and D2 and a 60-70% lesion immediately distal D2 as well as a 40% lesion in the mid circumflex extending into the proximal margin of OM 2.
2. Transient hypotension with LVEDP of 10 mmHg. Hypotension resolved with fluid bolus.
CTPE, 12/01/2024:
IMPRESSION:
1. No evidence of central or segmental pulmonary embolism.
2. There are opacities within the bilateral lower lobe secondary to represent atelectasis.
3. 2.5 cm heterogeneous nodule within the posterior right hemithyroid. Recommend nonemergent thyroid ultrasound for further evaluation. Given slightly increased size from prior examination.
4. Prominent retroperitoneal lymph nodes, similar to recent prior PET and consistent with known malignancy.
TTE, 12/02/2024:
CONCLUSIONS
Estimated left ventricular ejection fraction is 55-60%. Normal regional wall
motion.
Normal right ventricular size and function.
No significant valvular disease.
No significant change since the prior study of 07/13/2016.
PFT's, 12/04/2024:
Physical Exam
Vital Signs/Labs
Vital Signs
Temp Pulse Resp BP Pulse Ox
97.7 F 94 18 103/48 93
12/10/24 08:14 12/10/24 08:15 12/10/24 08:14 12/10/24 08:15 12/10/24 08:15
12/09/24 12/10/24 12/11/24
06:59 06:59 06:59
Actual Weight 69.9 kg 68.4 kg
12/10/24 04:45
12/10/24 04:04
PT 16.7 Sec (11.4-14.6) H 12/05/24 16:40
INR 1.30 12/05/24 16:40
APTT 32.9 Sec (23.4-35.0) 12/05/24 16:40
Magnesium 3.8 mg/dl (1.6-2.3) H 12/10/24 04:04
Triglycerides 118 mg/dl (10-149) 12/09/24 04:43
LDL Cholesterol, Calc 100 mg/dl 12/03/24 02:26
VLDL Cholesterol, Calc 55 mg/dl (0-30) H 12/03/24 02:26
HDL Cholesterol 32 mg/dl 12/03/24 02:26
TSH 1.80 uIU/ml (0.47-4.68) 12/03/24 02:26
12/01/24
20:52
Etg-[id number]-[id number] Pept 282
Physical Exam
Constitutional: No acute distress
Cardiovascular: Rhythm & rate is regular
Respiratory: Wheeze Absent
GI: Soft
Neuro/Psych: Alert
Data Reviewed
-
Date of Service: December 10, 2024
EKG: Report Reviewed by me
X-Ray/CT/US/MRI/NUC/PET: Report Reviewed by me
Medical Tests (PFT, Pathology etc): Report Reviewed by me
Labs: Labs Reviewed by me
--- NOTE | 2024-12-10 09:30 | PTCARENOTE ---
Patient received from date night caregiver RN; AAOx3, responds spontaneously to RN and follows commands; VSS; NSR on monitor; +1 B/L upper extremity edema and trace B/L LE edema; +1 DP and +2 radial pulses; Shallow respirations; Lungs with coarse crackles
throughout, diminished at bases; Coughing up white, thick sputum; IS 1500 ml; Patient still having diarrhea; Rivera catheter draining clear, yellow urine; B/L knee incisions glued, approximated, and JASON - CDI, right groin puncture glued,
approximated, and JASON - CDI, sternum midline incision glued, approximated, and JASON - CDI; PIVx1 - #22 left wrist; RIJ cordis with KVO infusing - see nursing flowsheets for further details; See nursing documentation for further information
--- NOTE | 2024-12-10 09:43 | W.PN.PUL3 ---
Today's Communication / Plan
-
Improving, weaning off O2, uses it PRN at home
Continue steroids, will transition to PO taper
Can continue nebs at home, consideration for escalation of Stiolto to Trelegy in light of prior PFTs
Will need to eval again in office for next steps on COPD
Airway clearance, PT/OT continued
Likely for d/c at [place]
Assessment
-
79-year-old male with hypertension, hyperlipidemia, diabetes, COPD on home oxygen FEV1 40%, DLCO 43%, prostate cancer presents with chest pressure, found to have multivessel coronary disease. He is status post CABG x 3 with left atrial clip. We
are asked to help from critical care standpoint.
S/p CABG x 3 12/05/24
Acute hypoxic respiratory failure s/p intubation
Extubated 12/05
Reintubated 12/06 for mucous plugging, worsening hypoxia, extubated 12/07
Significant mucous plugs left lower lobe, bloody secretions
Status post bedside bronchoscopy 12/07
Left lung atelectasis, improved
S/p NSTEMI, admitted 12/01/2024
Multivessel coronary disease, normal EF
Chest discomfort, shortness of breath
Postoperative anemia
Postoperative hypotension
Conditions present prior to admission
Hypertension, hyperlipidemia
Diabetes
COPD on home oxygen
History of prostate cancer, treated with homeopathic medicine
[id number] history of smoking, quit 2014
Plan
At this time, patient appears to be objectively and subjectively improved
Tolerating support bed, chest percussion therapy
Steroids started due to mucous plugging, decrease to once a day
Cough seems to be improved CT angiogram negative for pulm embolism, RV irritation likely secondary to acute hypoxia
Repeat echocardiogram with improved RV function
Off pressors
Beta-adilson started, remains on amiodarone
Continue with management per CT surgery
Off insulin
Off pressors
Chest tube discontinued
Hemoglobin 8.0 status post transfusion
Continue beta-adilson, rate control with Amio per CT surgery
Chest exam with good air exchange
Patient with significant emphysema, COPD as outpatient (severe obstruction on last PFT)
Continue with chest percussion
Mucomyst twice daily
DuoNebs 4 times daily, every 4 as needed, budesonide twice a day
Remains on methylprednisolone, continue once a day--transition to prednisone 30mg/taper at discharge
On Stiolto as outpatient, can resume as outpatient--may consider escalation of therapy
Continue nebs as OP
Sequential teds for DVT prophylaxis left lower extremity
Recommend pulmonary follow-up in 6-8 weeks, reviewed with patient
D/c planning per team, likely to go to [facility]--reviewed plan of care with team
Diagnostic Data
CXR 12/09/24- Small bilateral pleural effusions. Progressed on the left. New on the right. Findings suggesting prior asbestos exposure. Stable
12/07/24- 1. Interval improvement in aeration in the left lung with resolved mediastinal shift and decreased left lung airspace consolidation suggesting improvement in endobronchial impaction and postobstructive atelectasis. Residual partial
atelectasis of the left lower lobe.
2. Small left pleural effusion.
3. Recent CABG surgery and left atrial appendage exclusion.
4. Endotracheal tube, nasogastric tube, right IJ central venous catheter, and mediastinal chest tubes remaining in place.
12/06/24- 1. ACUTE COMPLETE PROXIMAL ENDOBRONCHIAL OCCLUSION of the left upper and lower lobe bronchi secondary to endobronchial mucous plugging.
2. NEAR COMPLETE POSTOBSTRUCTIVE ATELECTASIS of the LEFT LOWER LOBE with associated left lung volume loss.
3. Small bilateral pleural effusions.
4. Mild bilateral upper lobe centrilobular emphysema.
5. Minimal left apical pneumothorax.
6. Moderate amount of soft tissue emphysema in the anterior mediastinum, lower neck, and upper anterior abdominal wall.
7. Recent midline sternotomy, CABG surgery, and left atrial appendage exclusion.
8. Mediastinal chest tubes and right IJ central venous catheter in place.
12/03/24- There are minimal bibasilar airspace opacities which are similar to prior and likely represent atelectasis.
CT Chest 12/03/24- No acute findings in the chest. Mild centrilobular emphysematous changes with mild bibasilar atelectasis. Small volume secretions within the midthoracic trachea. Moderate coronary artery calcifications.
PET 10/01/24- Chest: [There is no soft tissue focus of PSMA uptake] suspicious for malignancy.Findings are suspicious for an approximate 1.9 cm solid posterior right lobe thyroid nodule, CT image 58 series 4 without significant PSMA uptake. Coronary
artery calcifications are noted.
ECHO 12/07/24: Left ventricular ejection fraction is 60-65%. Normal right ventricular size and function. Mild tricuspid regurgitation. Estimated pulmonary artery pressure of 20-25 mmHg, assuming a right atrial pressure of 3 mmHg. Compared to
previous echo on 12/06/24, the right ventricular size and function are now normal and the degree of tricuspid regurgitation has significantly improved (previously moderate the to severe) with a decrease in PASP (previously 30-35 mmHg).
PFT 12/04/24: FEV1 1.04L 42%, post 48%. TLC 5.58L 94%, DLCO 43%
Total time spent on this consultation/encounter __51__ minutes which includes review of history, physical exam, medications, laboratory data, personal review of imaging, extensive review of outpatient records, discussion with care team and
respiratory therapy.
Subjective Data
-
Date of Service:
Date of Service: December 10, 2024
Chief Complaint: Pulmonary Follow Up
Subjective:
Sitting in chair, feeling better
No new complaints
Cough occasionally, no worsening SOB
Objective Data
Data Reviewed
Vital Signs / I&O / Oxygen:
Vital Signs
Temp Pulse Resp BP Pulse Ox
97.7 F 94 18 103/48 93
12/10/24 08:14 12/10/24 08:15 12/10/24 08:14 12/10/24 08:15 12/10/24 08:30
Intake and Output
12/09/24 12/10/24 12/11/24
06:59 06:59 06:59
Intake Total 780 / 780 760 / 760 240 / 240
Output Total 730 / 730 3075 / 3075 125 / 125
Balance 50 / 50 -2315 / -2315 115 / 115
SaO2 [CPAP/PSV] 98
SaO2 [A/C] 95
SaO2 [CPAP] 98
SaO2 [SIMV] 98
SaO2 93
Nasal Cannula flow liters per 5
minute
Physical Exam
General: Comfortable, Good Appetite and Other (NAD)
HEENT: Normocephalic, Anicteric and Moist Mucous Membranes
Cardiovascular: S1-S2 and Regular Rhythm
Respiratory: Rhonchi and Non-Labored Respirations
GI: Soft, Non Distended and Non Tender
Neurology: Awake, Alert, Oriented and No Motor Deficits
Skin: Warm, Dry and Good Color
Labs/Micro/Reports
Lab Data
12/10/24 04:45
12/10/24 04:04
Microbiology
12/07/24 08:23 Bronch Left Lower Lobe Respiratory Culture - Final
Usual Respiratory Ashley
12/07/24 08:23 Bronch Left Lower Lobe Gram Stain - Final
--- NOTE | 2024-12-10 10:59 | PN.CDI ---
CDI
- -
CDI:
Physician Documentation Request
Admit Date: 12/02/24 00:[address] Surgery,
Please review the following and provide your response in the progress notes.
Clinical Indicators:
Pt admitted for NSTEMI-s/p CABG X 3 and MAGGY clip.
12/10 CT surgery note: ' Cr increased to 1.5 yesterday, 0.9 this AM. s/p 1 U PRBC. retaining urine multiple times, now starr back in and on Cardura'
Laboratory Tests
12/08/24 12/09/24 12/09/24
05:30 04:43 10:21
Creatinine 0.7 1.5 H 1.6 H
Clarify which of the following accurately represents the patient's renal status:
Acute kidney injury - see criteria
Insignificant abnormal lab values
Other
Criteria for CARMINE*
1 Increase in serum creatinine by > or = to 0.3 mg/dL (> or = to 26.5 micromol/L) within 48 hours, OR
2 Increase in serum creatinine to > or = to 1.5 times baseline, which is known or presumed to have occurred within 7 days, OR
3 Urine volume < 0.5 nL/kg/hour for six hours
Use of terms such as suspected, likely, concern for, or probable (associated with a specific diagnosis that is being evaluated, monitored, or treated as if it exists) are acceptable and can be coded in the inpatient setting, when documented at the
time of discharge.
Thank you,
Janet Ardon RN, BSN
CDI Specialist
[place] Text
Please use your independent medical judgment in providing your response.
*Source: Kidney Disease: Improving Global Outcomes (KDIGO) 2012
--- NOTE | 2024-12-10 12:41 | PTCARENOTE ---
PO Midodrine started due to low BP's; PT/OT and Physiatry consulted; Patient ambulating in hallways with cardiac rehab
--- NOTE | 2024-12-10 12:59 | CM ---
Chart reviewed. Patient OOB sitting in the chair. Patient is independent of ADLS, lives with his daughters 16 and 18, in a 1 [address], full flight of stairs to enter, wears prn O2. Plan is for the patient to return home with CT Transitional RN. CM to
follow
[2024-12-10 13:02] LABS: Glucose - Point of Care 162 mg/dl (70-99)
[2024-12-10] MEDS: NOVOLOG FLEXPEN-MODERATE RESISTANCE 1 UNITS SC (13:04)
[2024-12-10] MEDS: NSS IV (14:59)
[2024-12-10] MEDS: LIPITOR 40 MG PO (17:00)
[2024-12-10] MEDS: NOVOLOG FLEXPEN-MODERATE RESISTANCE 3 UNITS SC (17:02)
[2024-12-10 17:03] LABS: Glucose - Point of Care 215 mg/dl (70-99)
--- NOTE | 2024-12-10 18:16 | PTCARENOTE ---
RIJ Cordis discontinued by RN at bedside; VSS; No complications noted; Patient ambulating in hallways with RN
--- NOTE | 2024-12-10 20:00 | PTCARENOTE ---
Recieved patient at 1900, patient OOB in chair, denies pain. Alert and Oriented, Follows all commands. Good bilateral strength. Normal sinus rythym on monitor, BP 100/56. Patient started on midodrine today. Pulse palatable, trace edema in lower
extermities. Cordis removed earily and dressing at site Clean dry and intact. PIV winthn normal limits. Returned to bed for PV therapy in sports bed, Q 2 hours, tolerated treatment well. Lings dimished throughout, last congestion than prior
shift. Using IS and upto 2000 as max. Bowel sounds present, tolerated PO intact, appetite improved, eat 90% of dinner tray. loose stool on day shift sennkot held. See workflow assessment for more details.
[2024-12-10] MEDS: REMOVE LIDOCAINE PATCH 1 PATCH REMOVE (20:08)
[2024-12-10] MEDS: CARDURA 0.5 MG PO (23:03)
[2024-12-11] VITALS (18 sets, daily range): BP systolic 83–151; BP diastolic 50–79; PULSE 92–97; O2SAT 93–95; BMI 24.8
--- NOTE | 2024-12-11 | PTCARENOTE ---
patient ambulated in [place] about 250 ft, with 3 L oxygen.
--- NOTE | 2024-12-11 04:05 | PTCARENOTE ---
Alert and Oriented, patient rested most of night, ambulated in [place] and room. labs drawns, vital signs stable.
[2024-12-11] MEDS: CALCIUM GLUCONATE 130 MG IV (04:32)
[2024-12-11 04:33] LABS: Hematocrit 24.5 % (39.0-52.0); Hemoglobin 8.3 g/dL (13.0-18.0); Mean Corp Hgb Conc. 33.9 g/dL (33.0-37.0); Mean Corpuscular Volume 90.7 fL (80.0-94.0); Platelet Count 275 10^3/uL (130-400); Red Cell Dist. Width 15.0 % (11.5-14.5)
--- NOTE | 2024-12-11 04:42 | W.PN.CT ---
Today's Communication / Plan
-
Plan:
-No major issues overnight. Hemodynamically and neurologically intact
-Postop hypotension, has improved following 1u PRBC on 12/09, currently on Midodrine - will transition to PRN
-No further postop a-fib since 12/08, on Amiodarone, will switch Lopressor to Toprol XL
-Postop urinary retention requiring starr reinsertion on 12/09
-Consider d/c of starr with voiding trials, started on Cardura, has allergy to Flomax
-Pt with known COPD on PRN home O2, noted to be hypoxic postop likely d/t mucous plug S/P bronchoscopy on 12/07
-Oxygenation has improved, started on steroids per Pulmonary which is currently being weaned
-Cont. to encourage use of IS/Pulmonary toilet
-Wean off Of O2, on 2L home O2 PRN
-Gentle diuresis today, wt up
-OOB into chair/PT-OT following
-Ambulating well, should be able to go home
-Home (lives with 2 daughters) vs acute rehab
Assessment / Plan
-
Assessment:
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 Tao on 12/05/24, pod #6
- Intraop CYN: LVEF pre and postop 60% with no new regional wma. He had baseline mild mitral valve insufficiency that remained the same and looked slightly better after surgery.
- HTN
- HLD
- COPD with moderate disease on PFTs (FEV1 48%)- on home O2 prn
- Asthma/ mild emphysema
- Prostate adenocarcinoma, diagnosed 2.5 months ago (Tx with holistic medicine
- Hx smoking 2 ppd for 40 yrs, quit 10 yrs ago
- HgA1c 5.2%
- Acute postop blood loss anemia- stable (transfused 1u PRBCs)
- Acute postop atelectasis
- Acute postop hypovolemia with subsequent hypervolemia
- Acute postop mucous plugging of the L lung with respiratory failure, required urgent re-intubation- s/p bronch 12/07 with thick bloody secretions, extubated 12/07
- Acute postop VDRF
- Acute postop RV failure with moderate to severe TR per echo 12/06, resolved per echo 12/07
- Acute postop a-fib- very brief 2 min on 12/07
- Acute postop CARMINE
- Acute postop hypotension
Chest CT 12/06/24:
1. ACUTE COMPLETE PROXIMAL ENDOBRONCHIAL OCCLUSION of the left upper and lower lobe bronchi secondary to endobronchial mucous plugging.
2. NEAR COMPLETE POSTOBSTRUCTIVE ATELECTASIS of the LEFT LOWER LOBE with associated left lung volume loss.
3. Small bilateral pleural effusions.
4. Mild bilateral upper lobe centrilobular emphysema.
5. Minimal left apical pneumothorax.
6. Moderate amount of soft tissue emphysema in the anterior mediastinum, lower neck, and upper anterior abdominal wall.
7. Recent midline sternotomy, CABG surgery, and left atrial appendage exclusion.
8. Mediastinal chest tubes and right IJ central venous catheter in place.
9. No PE
Discussed patient care with: Cardiology, Nursing, Respiratory Therapy, Pharmacy and Care Team
Subjective
-
Date of Service: December 11, 2024
Pt c/o mild incisional pain, states he's feels much better. Ambulating halls without difficulty
Objective Data
-
Lab Results
12/11/24 04:18
PT 16.7 Sec (11.4-14.6) H 12/05/24 16:40
INR 1.30 12/05/24 16:40
APTT 32.9 Sec (23.4-35.0) 12/05/24 16:40
Vital Signs
Vital Signs
Temp Pulse Resp BP Pulse Ox
97.9 F 81 20 118/56 92
12/10/24 20:30 12/11/24 04:00 12/10/24 20:30 12/10/24 23:05 12/11/24 04:00
CT Intake/Output/Weight
12/10/24 12/10/24 12/11/24
06:59 18:59 06:59
Intake Total 420 / 760 960 / 1360 400 / 1360
Output Total 1100 / 3075 855 / 1005 150 / 1005
Balance -680 / -2315 105 / 355 250 / 355
SaO2: 92 (2L)
Physical Exam
-
General: Awake, Oriented and AOx3
Cardiovascular: Regular rate & rhythm
Respiratory: Decreased Breath Sounds (coarse )
Sternum: Stable
Incision: Clean, Dry, Intact and Dressing Intact
Extremities: Other (+trace edema)
Data Reviewed
-
Lab Results: Results Reviewed
Medications: Active Meds Reviewed
Chest X-Ray: Report Reviewed and Image Reviewed
ECG: Report Reviewed and Image Reviewed
[2024-12-11 04:56] LABS: Blood Urea Nitrogen 33 mg/dl (9-20); Calcium 8.5 mg/dl (8.4-10.2); Carbon Dioxide 30 mmol/L (22-30); Chloride 104 mmol/L (98-107); Estimated Creatinine Clearance 66 ml/min; Glucose 114 mg/dl (70-99); Magnesium 3.0 mg/dl (1.6-2.3); Potassium 4.6 mmol/L (3.5-5.1); Sodium 137 mmol/L (135-145); eGFR > 60.00
[2024-12-11] MEDS: MIRALAX TUBE (07:17)
[2024-12-11] MEDS: SENOKOT-S PO (07:17)
[2024-12-11] MEDS: LIDOCAINE 4% PATCH TOPICAL (07:17)
[2024-12-11] MEDS: PULMICORT 0.5 MG INH ×2 (07:28→18:38)
[2024-12-11] MEDS: DUONEB 3 ML INH ×4 (07:28→18:38)
[2024-12-11 07:37] LABS: Glucose - Point of Care 116 mg/dl (70-99)
[2024-12-11] MEDS: TYLENOL PO ×3 (08:32→20:51)
[2024-12-11] MEDS: NEURONTIN PO ×3 (08:32→20:51)
[2024-12-11] MEDS: LASIX 40 MG IV (08:37)
[2024-12-11] MEDS: PACERONE 400 MG PO ×3 (08:37→20:50)
[2024-12-11] MEDS: KLOR-CON 20 MEQ PO (08:37)
[2024-12-11] MEDS: MUCINEX 1200 MG PO ×2 (08:37→20:51)
[2024-12-11] MEDS: PLAVIX 75 MG PO (08:38)
[2024-12-11] MEDS: LOW STRENGTH ASPIRIN 81 MG PO (08:38)
[2024-12-11] MEDS: NOVOLOG FLEXPEN-MODERATE RESISTANCE SC ×2 (08:38→12:36)
[2024-12-11] MEDS: PROTONIX 40 MG PO (08:38)
[2024-12-11] MEDS: TOPROL XL 25 MG PO (08:38)
[2024-12-11] MEDS: DELTASONE 30 MG PO (08:41)
--- NOTE | 2024-12-11 09:25 | PTCARENOTE ---
Patient received from night assistant RN; AAOx3, responds spontaneously to RN and follows commands; VSS; NSR with PVC's on monitor; +1 B/L upper extremity edema and trace B/L LE edema; +1 DP and +2 radial pulses; Shallow respirations; FORDE; Lungs coarse
and with rhonchi throughout, diminished at bases; Frequently coughing up white, thick sputum; IS 2000 ml; Patient using acapella but refusing bed percussion and vibration from sport bed at this time; Rivera catheter draining clear, yellow urine and
discontinued at 0826 - DTV at 1426; B/L knee incisions glued, approximated, and MEAT SMOKER - CDI, right groin puncture glued, approximated, and JASON - CDI, sternum midline incision glued, approximated, and JASON - CDI; PIVx1 - #22 left wrist; IV Lasix 40 mg
and PO potassium ordered and given; See nursing documentation for further information
--- NOTE | 2024-12-11 09:27 | W.PN.PUL3 ---
Today's Communication / Plan
-
Prednisone taper, doing well--notes he would like to stop chest PT/vest, d/c
Currently on 2L NC which we reviewed can use his POC at home and we will re-eval w/ 6MWT on FU visit
Urinary retention ongoing, encouraged voiding trials
OOB, PT, ambulating well
OP FU to be arranged
Likely d/c to rehab if he can void
Assessment
-
79-year-old male with hypertension, hyperlipidemia, diabetes, COPD on home oxygen FEV1 40%, DLCO 43%, prostate cancer presents with chest pressure, found to have multivessel coronary disease. He is status post CABG x 3 with left atrial clip. We
are asked to help from critical care standpoint.
S/p CABG x 3 12/05/24
Acute hypoxic respiratory failure s/p intubation
Extubated 12/05
Reintubated 12/06 for mucous plugging, worsening hypoxia, extubated 12/07
Significant mucous plugs left lower lobe, bloody secretions
Status post bedside bronchoscopy 12/07
Left lung atelectasis, improved
S/p NSTEMI, admitted 12/01/2024
Multivessel coronary disease, normal EF
Chest discomfort, shortness of breath
Postoperative anemia
Postoperative hypotension
Conditions present prior to admission
Hypertension, hyperlipidemia
Diabetes
COPD on home oxygen
History of prostate cancer, treated with homeopathic medicine
[id number] history of smoking, quit 2014
Plan
At this time, patient appears to be objectively and subjectively improved
Tolerating support bed, chest percussion therapy
Steroids started due to mucous plugging, decrease to once a day
Cough seems to be improved CT angiogram negative for pulm embolism, RV irritation likely secondary to acute hypoxia
Repeat echocardiogram with improved RV function
Off pressors
Beta-adilson started, remains on amiodarone
Continue with management per CT surgery
Off insulin
Off pressors
Chest tube discontinued
Hemoglobin 8.0 status post transfusion
Continue beta-adilson, rate control with Amio per CT surgery
Chest exam with good air exchange
Patient with significant emphysema, COPD as outpatient (severe obstruction on last PFT)
Mucomyst twice daily, he does not wish for further vest or chest PT--ok to d/c
DuoNebs 4 times daily, every 4 as needed, budesonide twice a day
Remains on methylprednisolone, continue once a day--transition to prednisone 30mg/taper at discharge
On Stiolto as outpatient, can resume as outpatient--may consider escalation of therapy
Continue nebs as OP
Sequential teds for DVT prophylaxis left lower extremity
Recommend pulmonary follow-up in 6-8 weeks, reviewed with patient
D/c planning per team, likely to go to [facility]--reviewed plan of care with team
Diagnostic Data
CXR 12/09/24- Small bilateral pleural effusions. Progressed on the left. New on the right. Findings suggesting prior asbestos exposure. Stable
12/07/24- 1. Interval improvement in aeration in the left lung with resolved mediastinal shift and decreased left lung airspace consolidation suggesting improvement in endobronchial impaction and postobstructive atelectasis. Residual partial
atelectasis of the left lower lobe.
2. Small left pleural effusion.
3. Recent CABG surgery and left atrial appendage exclusion.
4. Endotracheal tube, nasogastric tube, right IJ central venous catheter, and mediastinal chest tubes remaining in place.
12/06/24- 1. ACUTE COMPLETE PROXIMAL ENDOBRONCHIAL OCCLUSION of the left upper and lower lobe bronchi secondary to endobronchial mucous plugging.
2. NEAR COMPLETE POSTOBSTRUCTIVE ATELECTASIS of the LEFT LOWER LOBE with associated left lung volume loss.
3. Small bilateral pleural effusions.
4. Mild bilateral upper lobe centrilobular emphysema.
5. Minimal left apical pneumothorax.
6. Moderate amount of soft tissue emphysema in the anterior mediastinum, lower neck, and upper anterior abdominal wall.
7. Recent midline sternotomy, CABG surgery, and left atrial appendage exclusion.
8. Mediastinal chest tubes and right IJ central venous catheter in place.
12/03/24- There are minimal bibasilar airspace opacities which are similar to prior and likely represent atelectasis.
CT Chest 12/03/24- No acute findings in the chest. Mild centrilobular emphysematous changes with mild bibasilar atelectasis. Small volume secretions within the midthoracic trachea. Moderate coronary artery calcifications.
PET 10/01/24- Chest: [There is no soft tissue focus of PSMA uptake] suspicious for malignancy.Findings are suspicious for an approximate 1.9 cm solid posterior right lobe thyroid nodule, CT image 58 series 4 without significant PSMA uptake. Coronary
artery calcifications are noted.
ECHO 12/07/24: Left ventricular ejection fraction is 60-65%. Normal right ventricular size and function. Mild tricuspid regurgitation. Estimated pulmonary artery pressure of 20-25 mmHg, assuming a right atrial pressure of 3 mmHg. Compared to
previous echo on 12/06/24, the right ventricular size and function are now normal and the degree of tricuspid regurgitation has significantly improved (previously moderate the to severe) with a decrease in PASP (previously 30-35 mmHg).
PFT 12/04/24: FEV1 1.04L 42%, post 48%. TLC 5.58L 94%, DLCO 43%
Total time spent on this consultation/encounter __51__ minutes which includes review of history, physical exam, medications, laboratory data, personal review of imaging, extensive review of outpatient records, discussion with care team and
respiratory therapy.
Subjective Data
-
Date of Service:
Date of Service: December 11, 2024
Chief Complaint: Pulmonary Follow Up
Subjective:
No new complaints, having some urinary retention post starr removal
Otherwise, sitting in chair, feels good
Objective Data
Data Reviewed
Vital Signs / I&O / Oxygen:
Vital Signs
Temp Pulse Resp BP Pulse Ox
97.6 F 91 18 134/66 95
12/11/24 08:26 12/11/24 08:00 12/11/24 08:26 12/11/24 07:38 12/11/24 08:26
Intake and Output
12/10/24 12/11/24 12/12/24
06:59 06:59 06:59
Intake Total 760 / 760 1460 / 1460
Output Total 3075 / 3075 2805 / 2805 500 / 500
Balance -2315 / -2315 -1345 / -1345 -500 / -500
SaO2 [CPAP/PSV] 98
SaO2 [A/C] 95
SaO2 [CPAP] 98
SaO2 [SIMV] 98
SaO2 95
Nasal Cannula flow liters per 3
minute
Physical Exam
General: Comfortable, Good Appetite and Other (NAD)
HEENT: Normocephalic, Anicteric and Moist Mucous Membranes
Cardiovascular: S1-S2 and Regular Rhythm
Respiratory: Rhonchi and Non-Labored Respirations
GI: Soft, Non Distended and Non Tender
Neurology: Awake, Alert, Oriented and No Motor Deficits
Skin: Warm, Dry and Good Color
Labs/Micro/Reports
Lab Data
12/11/24 04:18
12/11/24 04:18
Microbiology
12/07/24 08:23 Bronch Left Lower Lobe Respiratory Culture - Final
Usual Respiratory Ashley
12/07/24 08:23 Bronch Left Lower Lobe Gram Stain - Final
--- NOTE | 2024-12-11 11:51 | W.PN.CD ---
Today's Communication / Plan
-
Blood pressure stable while seated but patient had some orthostatic symptoms earlier today. Continue to monitor closely May consider holding metoprolol if he has further issues with orthostatic hypotension.
Remains in sinus. Monitor on telemetry
Impression / Plan
-
Impression/Plan: 79-year-old male with hypertension, NIDDM (treated with tirzepatide; which he stopped 2 weeks ago), obesity, COPD (former smoker of 2 PPD x 40 years; quit 18 years ago), and prostate cancer admitted with NSTEMI.
-S/P 3V CABG (PETE to LAD, FRIMA Y-graft from PETE to OM, SVG to RPDA) with LAAL with Dr. Tao, 12/05/2024.
- in nsr
- continue psot op care per CT surgery
#NSTEMI/CAD
-Troponin peaked at 0.656.
-Echocardiogram shows preserved systolic function. LVEF 55-60%.
-Cardiac catheterization shows 90% ostial RCA, 90% distal LMCA.
-S/P 3V CABG (PETE to LAD, FRIMA Y-graft from PETE to OM, SVG to RPDA) with LAAL with Dr. Tao, 12/05/2024.
#AT vs Afib 12/08, per notes. Some strip with possible rate controlled afib. No arrhythmias on telemetry in last 24-48 hours
- currently on amio and metoprolol. If BP limits use of metoprolol then will consider just use of amiodarone for the time being
.
Lightheadedness/orthostatic symptoms occurred earlier today blood pressure currently stable while seated with SBP 115.
-If continued issues with orthostatic hypotension then hold metoprolol
-
-
#COPD/Hypoxic respiratory failure
-improved.
- pulmonary critical care following
- patient on O2 NCat home
- continue tx
#Hypertension: Pre op.
- monitor post op
#NIDDM2:
-Chronic, stable.
-Hemoglobin A1c = 5.2%.
-Per mnotes. Patient stated that he was on tirzepatide for a few years; stopped it 2 weeks ago because he thinks he is 'cured'.
#Prostate cancer
-Chronic.
-Currently using a homeopathic regimen.
#Overweight, BMI 24
Subjective/Interval History:
The patient developed new, acute hypoxic respiratory failure requiring NRB yesterday afternoon/evening (O2 sats down to the 70's).
CXR suggested atelectasis. Repeat echo showed new RV dilation with decreased function. CTPE negative for PE but did show significant atelectasis (likely mucous plugging).
Pulmonology called to bedside. Nasal trumpet placed. Deep suction with budesonide temporized SAO2, which increased to 100%.
The patient had consumed dinner, which prevented bedside bronchoscopy at the time. The plan was for bronchoscopy in the AM.
Given his status, the patient was reintubated and sedated overnight.
Even with invasive ventilation, the patient had occasional desaturations. Ultimately, FiO2 was decreased to 80% and PaO2 remained stable
Plan was for bronchoscopy this morning.
Hbg down to 7.6 this morning.
Weight up 1.4 kg from yesterday, > 4 kg from baseline.
DATA:
CTPE, 12/06/2024:
IMPRESSION:
1. ACUTE COMPLETE PROXIMAL ENDOBRONCHIAL OCCLUSION of the left upper and lower lobe bronchi secondary to endobronchial mucous plugging.
2. NEAR COMPLETE POSTOBSTRUCTIVE ATELECTASIS of the LEFT LOWER LOBE with associated left lung volume loss.
3. Small bilateral pleural effusions.
4. Mild bilateral upper lobe centrilobular emphysema.
5. Minimal left apical pneumothorax.
6. Moderate amount of soft tissue emphysema in the anterior mediastinum, lower neck, and upper anterior abdominal wall.
7. Recent midline sternotomy, CABG surgery, and left atrial appendage exclusion.
8. Mediastinal chest tubes and right IJ central venous catheter in place.
CABG,12/05/2024:
Procedure(s) Performed:
1. Standard Sternotomy with Aortic and Right Atrial Cannulation.
2. Bilateral Internal Mammary Artery Harvesting, In Situ PETE and Free HOWARD.
3. Multi Arterial Coronary artery bypass grafting x 3 (In situ PETE to LAD, HOWARD Y off PETE to OM, Ao to RSVG to RPDA).
4. Endoscopic vein harvesting of RLE and LLE.
5. Transesophageal echocardiography.
6. Placement of Temporary Atrial and Ventricular Pacing Wires.
7. Ligation of Left Atrial Appendage.
Cath 12/03/2024:
CONCLUSIONS
1. Right dominant circulation with a 90% lesion in the ostium of the RCA, a 50% lesion in the distal aspect of the proximal RCA, a 50% lesion in the mid RCA, a 50-60% lesion in the distal RCA immediately after the crux, and 90% lesion in the distal
margin of the left main coronary artery, a 40% lesion in the proximal LAD, a 40% lesion in between D1 and D2 and a 60-70% lesion immediately distal D2 as well as a 40% lesion in the mid circumflex extending into the proximal margin of OM 2.
2. Transient hypotension with LVEDP of 10 mmHg. Hypotension resolved with fluid bolus.
CTPE, 12/01/2024:
IMPRESSION:
1. No evidence of central or segmental pulmonary embolism.
2. There are opacities within the bilateral lower lobe secondary to represent atelectasis.
3. 2.5 cm heterogeneous nodule within the posterior right hemithyroid. Recommend nonemergent thyroid ultrasound for further evaluation. Given slightly increased size from prior examination.
4. Prominent retroperitoneal lymph nodes, similar to recent prior PET and consistent with known malignancy.
TTE, 12/02/2024:
CONCLUSIONS
Estimated left ventricular ejection fraction is 55-60%. Normal regional wall
motion.
Normal right ventricular size and function.
No significant valvular disease.
No significant change since the prior study of 07/13/2016.
PFT's, 12/04/2024:
Physical Exam
Vital Signs/Labs
Vital Signs
Temp Pulse Resp BP Pulse Ox
97.6 F 87 16 116/65 95
12/11/24 08:26 12/11/24 11:04 12/11/24 11:04 12/11/24 11:02 12/11/24 11:04
12/10/24 12/11/24 12/12/24
06:59 06:59 06:59
Actual Weight 68.4 kg 67.5 kg
12/11/24 04:18
12/11/24 04:18
PT 16.7 Sec (11.4-14.6) H 12/05/24 16:40
INR 1.30 12/05/24 16:40
APTT 32.9 Sec (23.4-35.0) 12/05/24 16:40
Magnesium 3.0 mg/dl (1.6-2.3) H 12/11/24 04:18
Triglycerides 118 mg/dl (10-149) 12/09/24 04:43
LDL Cholesterol, Calc 100 mg/dl 12/03/24 02:26
VLDL Cholesterol, Calc 55 mg/dl (0-30) H 12/03/24 02:26
HDL Cholesterol 32 mg/dl 12/03/24 02:26
TSH 1.80 uIU/ml (0.47-4.68) 12/03/24 02:26
12/01/24
20:52
[id number] Pept 282
Physical Exam
Constitutional: No acute distress
Cardiovascular: Rhythm & rate is regular
Respiratory: Wheeze Absent and Rhonchi Absent
GI: Soft
Data Reviewed
-
Date of Service: December 11, 2024
Medical Decision Making: Reviewed Test Results
Echo: Report Reviewed by me
X-Ray/CT/US/MRI/NUC/PET: Report Reviewed by me
Medical Tests (PFT, Pathology etc): Report Reviewed by me
Labs: Labs Reviewed by me
--- NOTE | 2024-12-11 12:05 | CM ---
Chart reviewed. Patient OOB sitting in the chair. Patient said he feels weaker today. PT evaluation recommending SNF vs Home PT. Patient ambulated 100 ft no device min assist. Patient would need insurance authorization. Patient would prefer
to go home. Plan is for the patient to return home with CT Transitional RN vs SNF. CM to follow
--- NOTE | 2024-12-11 12:30 | PTCARENOTE ---
Assumed care of patient at 11:00 from prior RN. Assessment completed and documented in shift assessment.
Notable changes to prior morning assessment: Increased midflow NC from 2L to 4L after patient dropped and sustained SpO2 to high 80's. Encouraged use of acapella and IS. Patient with hypotension post-midodrine dosing/after he attempted to stand from
chair. Recovered after sitting again. Placed starr catheter back in due to retention issues post-earlier starr removal (had been bladder scanned before I arrived for high volumes with active new order for starr placement). No other changes.
[2024-12-11 12:37] LABS: Glucose - Point of Care 161 mg/dl (70-99)
[2024-12-11] MEDS: NSS IV (15:18)
--- NOTE | 2024-12-11 16:48 | CON.MD ---
Consultation - Medical
-
Chief Complaint:�Debility after CABG
�
History of Present Illness:�79-year-old male with PMH (as below) presented to [facility] on 12/01/2024 with chest pain while mowing the lawn. CT of the chest with no definitive pulmonary embolism, no evidence of aortic dissection, borderline
enlarged 9 mm retroperitoneal lymph node left periaortic nodular group. Diagnosed with an NSTEMI with significant ST depressions on initial EKG. Given Lopressor, nitro and heparin drip. He had a cardiac catheterization on 12/03/2024 noting -- Right
dominant circulation with a 90% lesion in the ostium of the RCA, a 50% lesion in the distal aspect of the proximal RCA, a 50% lesion in the mid RCA, a 50-60% lesion in the distal RCA immediately after the crux, and 90% lesion in the distal margin of
the left main coronary artery, a 40% lesion in the proximal LAD, a 40% lesion in between D1 and D2 and a 60-70% lesion immediately distal D2 as well as a 40% lesion in the mid circumflex extending into the proximal margin of OM 2. On 12/05/2024 he
had a CABG x 3 with bilateral internal mammary artery harvesting and endoscopic vein harvesting of the right and left lower extremities as well as ligation of the left atrial appendage. He was weaned off pressors and extubated. On 12/06 he had an
episode of desaturation with possible mucous plugging. Received nebulizer and chest PT. Echocardiogram 12/06 with new RV dilatation. Required intubation for respiratory distress. Had a bronchoscopy by Dr. Taina López on 12/07/2024 with moderate
secretions bilaterally but thick secretions throughout the left lobe and lingula requiring flushing of mucous plugs. Noted with mild bloody secretions likely from persistent plugging and mild scope trauma. Chest tube removed 12/09. Tapering dose
of prednisone. Patient with some orthostasis 12/11, continuing to monitor possibly holding metoprolol.
�
Past Medical History:�Essential hypertension, HLD, former smoker, COPD with asthma and mild emphysema with O2 at home as needed, type 2 diabetes, prostate cancer
Procedure History:�Prostate cancer surgery
Family History:�Coronary artery disease. Mother , father still living.
�
Social History:�
Functional Level Premorbidly:�Independent with all activities�
Functional Level Currently:�Supervision for transfers and ADLs except for min assist lower extremity self-care. Ambulated 100 feet min assist no device.
�
Tobacco:�Former
Alcohol:�Occasional
Drug use:�Denies�
�
Lives with:�2 teenage daughters
24-hour assistance available:�
Number of floors:�1
# steps to enter:�1 flight
Driving:�Yes
Occupation:�Works with [employer]
�
�
Allergies:�
Allergy/AdvReac Type Severity Reaction Status Date / Time
Penicillins Allergy Swelling; Verified 12/06/24 20:28
tolerates
cefazolin
tamsulosin (From Flomax) Allergy Rash Verified 12/09/24 15:29
�
Review of Systems:�
Constitutional: (x) abNormal _fatigue
Eye: (x) Normal _
Ear/Nose/Throat: (x) Normal _
Respiratory: (x) Normal _
Cardiovascular: (x) abNormal _heart attack and CABG
Gastrointestinal: (x) Normal _
Genitourinary: (x) abNormal _had difficulty with voiding he thinks from too much Lasix. Had been seeing urology as an outpatient for his prostate. Thinks his To go home with a catheter and sees urology
Musculoskeletal: (x) Normal _
Integumentary: (x) Normal _
Neurologic: (x) Normal _
Psychiatric: (x) Normal _
Endocrine: (x) Normal _
Hematologic/Lymphatic: (x) Normal _
Allergic/Immunologic: (x) Normal _
�
Medications:�
Active Current Visit Medication List
Category Date Time Status
0.9% Sodium Chloride 500 ml [Nss] 500 ml Med 12/05/24 15:46 Active
IV CORDIS
Acetaminophen [Tylenol] Med 12/05/24 15:46 Active
1,000 mg PO TID@0600,1400,2200
Acetaminophen [Tylenol] Med 12/05/24 15:46 Active
650 mg PO Q4HPRN PRN
Amiodarone [Pacerone] Med 12/08/24 17:42 Active
400 mg PO TID
Aspirin Chewable [Low Strength Aspirin] Med 12/06/24 08:00 Active
81 mg PO DAILY
Atorvastatin [Lipitor] Med 12/02/24 18:00 Active
40 mg PO QPM
Bisacodyl [Dulcolax] Med 12/05/24 15:46 Active
10 mg RECTAL DAILYPRN PRN
Bisacodyl [Dulcolax] Med 12/09/24 19:43 Active
10 mg RECTAL DAILYPRN PRN
Budesonide [Pulmicort] Med 12/08/24 20:00 Active
0.5 mg INH R BID
Clopidogrel Bisulfate [Plavix] Med 12/06/24 08:00 Active
75 mg PO DAILY
Cyclobenzaprine HCl [Flexeril] Med 12/05/24 15:46 Active
5 mg PO Q8HPRN PRN
Docusate W/Senna [Senokot-S] Med 12/05/24 20:00 Active
1 tablet PO Q12
Doxazosin Mesylate [Cardura] Med 12/09/24 22:00 Active
0.5 mg PO HS
Flush (0.9% Sodium Chloride) [Flush (Nss)] Med 12/05/24 16:00 Active
See Dose Instructions IV PER PROTOCOL
Gabapentin [Neurontin] Med 12/10/24 16:00 Active
100 mg PO TID
Guaifenesin [Mucinex] Med 12/06/24 20:00 Active
1,200 mg PO Q12
Insulin Aspart Corrective Mod [Novolog Flexpen-Moderate Med 12/08/24 07:30 Active
Resistance]
See Protocol SC AC
Ipratropium/Albuterol Sulfate [Duoneb] Med 12/06/24 14:14 Active
3 ml INH R Q4HPRN PRN
Ipratropium/Albuterol Sulfate [Duoneb] Med 12/06/24 16:00 Active
3 ml INH R QID
Ketorolac [Toradol] Med 12/06/24 01:51 Active
15 mg IV Q6HPRN PRN
Lidocaine [Lidocaine 4% Patch] Med 12/06/24 08:00 Active
1 patch TOPICAL DAILY
Magnesium Hydroxide [Milk of Magnesia] Med 12/05/24 15:46 Active
30 ml PO BIDPRN PRN
Magnesium Oxide Med 12/06/24 08:00 Hold
500 mg PO BID
Metoprolol Xl [Toprol Xl] Med 12/11/24 08:00 Active
25 mg PO BID
Midodrine [ProAmatine] Med 12/11/24 15:49 Active
5 mg PO TID@0800,1300,1800
Ondansetron Injectable [Zofran] Med 12/05/24 15:46 Active
4 mg IV Q8HPRN PRN
Oxycodone [Roxicodone] Med 12/05/24 15:46 Active
2.5 mg PO Q4HPRN PRN
Oxycodone [Roxicodone] Med 12/05/24 15:46 Active
5 mg PO Q4HPRN PRN
Pantoprazole [Protonix] Med 12/06/24 08:00 Active
40 mg PO DAILY
Polyethylene Glycol Powder [Miralax] Med 12/07/24 08:00 Active
17 grams TUBE DAILY
Potassium Chloride [KCl] Med 12/05/24 15:46 Active
40 meq PO PRN PRN
Prednisone [Deltasone] Med 12/18/24 08:00 Active
10 mg PO DAILY
Prednisone [Deltasone] Med 12/14/24 08:00 Active
20 mg PO DAILY
Prednisone [Deltasone] Med 12/11/24 08:00 Active
30 mg PO DAILY
Remove Patch [Remove Lidocaine Patch] Med 12/06/24 20:00 Active
1 patch REMOVE DAILY@1999
�
Vitals:�
Temp Pulse Resp BP Pulse Ox
98.1 F 93 16 107/53 95
12/11/24 16:51 12/11/24 17:01 12/11/24 16:13 12/11/24 17:01 12/11/24 16:13
Height 5 ft 5 in
Actual Weight 67.5 kg
Body Mass Index (BMI) 24.8
�
Physical Exam:�
General Appearance/Observation: Well-developed, well-nourished male in no apparent distress.�
Pain/Comfort Assessment: Denies�
Mood/Affect: Appropriate�
�
Integumentary/Operative Site:�Sternal incision, bilateral medial leg incisions, and drain sites healing well.
�
Eyes: Conjunctiva/Lids: normal��� Pupils: pupils equal round and reactive to light and Accommodation
Ears/Nose/Throat: oral mucosa moist, throat clear.������������ Lips/Teeth/Gums: normal
Neck: No muscle spasm or tenderness�
Cardiovascular: Heart: regular, no murmur�
Pulses: dorsalis pedis 2+ bilaterally�
Respiratory: Respiratory Effort/Chest Expansion: normal������ Auscultation: Clear to auscultation bilaterally
Gastrointestinal: abdomen not tender, no distension, normal abdominal bowel sounds
Genitourinary: Rivera�with clear yellow urine
Extremities:�Edema: Slight bilateral nonpitting lower extremity�cyanosis: None�Trophic�changes: None
�
Neurology Exam:
Orientation: Alert, Oriented to self, Time, Place�
Memory: Intact immediately and at 3 minutes�
Repetition: Intact
Comprehension: Intact
Two step command: Intact
Naming: Intact
Cranial Nerves:
�� CNII:�Pupillary light reflex: Intact��
�� CN VII:�Facial movement: Symmetric
�� CN VIII:�Hearing: Normal
�� CN IX/X:�Speech & swallow: Normal,�Position of Uvula: Midline
�� CN XII:�Tongue protrusion: Midline
Sensory:
�� Light touch: Intact in bilateral upper and lower extremities
Musculoskeletal:Motor: (Manual muscle scale 0-5)�
Muscle SA EF WE EE FF FA HF KE DF EHL PF
Right� >3 >3 5 4 5 5 5
Left >3 >3 5 4 5 5 5
�
Tone: Normal in all extremities�
Range of Motion: Passively within normal limits in all extremities�
�
Lab Results
Laboratory Data
12/11/24 04:18
12/11/24 04:18
PT 16.7 Sec (11.4-14.6) H 12/05/24 16:40
INR 1.30 12/05/24 16:40
APTT 32.9 Sec (23.4-35.0) 12/05/24 16:40
Total Bilirubin 0.5 mg/dl (0.2-1.3) 12/04/24 05:02
Direct Bilirubin 0.1 mg/dl (0.0-0.4) 12/04/24 05:02
AST 20 U/L (17-59) 12/04/24 05:02
ALT 20 U/L (0-50) 12/04/24 05:02
Alkaline Phosphatase 44 U/L (38-126) 12/04/24 05:02
Total Protein 6.3 g/dl (6.3-8.2) 12/04/24 05:02
Albumin 3.8 g/dl (3.5-5.0) 12/04/24 05:02
�
Diagnostic Results:�as per HPI�
�
Assessment
79-year-old M PMH (Essential hypertension, HLD, former smoker, COPD with asthma and mild emphysema with O2 at home as needed, type 2 diabetes, prostate cancer) with 12/01/2024 NSTEMI s/p 12/05/2024 CABG x 3 with mucous plugging postoperatively requiring
another course of intubation, and orthostatic hypotension resulting in ADL and ambulatory dysfunction.
Plan�
PM&R�PT/OT to increase independence with ADLs, improve balance, coordination, endurance, strength, mobility, community reintegration, decreased burden of care on others and family education.�
CAD with NSTEMI S/P CABG x 4: Sternal precautions.� Aspirin, Plavix, statin, beta-adilson BP control.� Monitor incisions which are healing well, pain control.�
HTN: continue medications, monitor closely�
Orthostasis: Midodrine
HLD: Statin�
DM II: Accu-Cheks, insulin sliding scale
COPD with mucous plugging: nebulizer treatments.� Guaifenesin on tapering dose of steroids.�
Postoperative anemia: 8.3 from 8.4 from 8.� Continue to monitor.�
Leukocytosis: Likely from steroid use
�
Psych: Psychology consult.� Monitor mood, adjust medications as needed.�
Skin: monitor for pressure sores/rashes/lesions.�
Pain: acetaminophen or oxycodone as needed.� Cyclobenzaprine as needed for spasms, gabapentin 100 mg 3 times daily.
Bowel: MiraLAX and Senna/Colace, PRN bisacodyl.�
Bladder: Has urinary retention. Rivera catheter in place with plan to follow-up with urology.
GI Prophylaxis: Pantoprazole�
DVT Prophylaxis: Mechanical
Pulmonary: Incentive spirometry�
Safety: Continue to reinforce assistance with all transfers.�
Code Status:� Full code
Dispo�(date/plan/equipment needs): Home with family care.� Social history reviewed.�
�
Functional and Medical Goals:�Modified Independent with ADL�s, ambulation, transfers�
Discharge Destination:�Home�with home care versus SNF discussed with patient. Patient like to go home with home care as he has his daughters at home that can help him, his 1 daughter is home all the time.
�
Summary of recommendations:
-�Discharge Destination:�Home�care once medically stable. Would suggest getting repeat orthostatics and doing therapy on 12/12/2024 to make sure that he is stable for discharge home.
�
Thank you for allowing me to care for your patient. Please contact me with any questions or concerns.
Consultation
-
Date/Time Consultation Performed: 12/12/2023
Requesting Provider: Dr. Itz Tao
Performing Provider: Dr. Armando Watson
Reason for Consultation: Debility after CABG
[2024-12-11 16:57] LABS: Glucose - Point of Care 246 mg/dl (70-99)
[2024-12-11] MEDS: NOVOLOG FLEXPEN-MODERATE RESISTANCE 3 UNITS SC (16:58)
[2024-12-11] MEDS: LIPITOR 40 MG PO (17:01)
--- NOTE | 2024-12-11 20:00 | PTCARENOTE ---
assumed care of patient @ 1900. received pt sitting in chair, Aox3. NSR on tele, BP stable. Per CTPA to hold metoprolol tonight. Lungs coarse, rhonchi throughout. productive, moist cough with thick white sputum present. Satting mid 90s on 4L. + bm,
tolerating diet. tsarr present draining clear yellow urine. Surical sites MALT LOADER , CDI. PIV present. assisted pt to bed, now resting comfortably in bed w call owen within reach .
[2024-12-11] MEDS: CARDURA 0.5 MG PO (20:49)
[2024-12-11] MEDS: TOPROL XL PO (20:51)
[2024-12-11] MEDS: SENOKOT-S 1 TABLET PO (20:51)
[2024-12-11] MEDS: REMOVE LIDOCAINE PATCH 1 PATCH REMOVE (20:51)
[2024-12-12] VITALS (15 sets, daily range): BP systolic 95–129; BP diastolic 48–75; PULSE 90–107; O2SAT 91–92; BMI 23.8
--- NOTE | 2024-12-12 02:00 | PTCARENOTE ---
pt with large amount of secretions, having trouble bringing mucous up. sport bed ran multiple times, RT to come give neb treatment. pt not sleeping d/t mucuous and coughing. otherwise no change in assessment .
--- NOTE | 2024-12-12 02:04 | PTCARENOTE ---
pt with period of apnea desatting to the 60s, quickly recovered to the 90s. 02 increased from 2 to 4. ctpa notified, otherwise pt resting comfortably, no change in assessment .
[2024-12-12] MEDS: DUONEB 3 ML INH ×6 (02:26→21:16)
[2024-12-12 06:14] LABS: Hematocrit 25.7 % (39.0-52.0); Hemoglobin 8.6 g/dL (13.0-18.0); Mean Corp Hgb Conc. 33.5 g/dL (33.0-37.0); Mean Corpuscular Volume 91.5 fL (80.0-94.0); Platelet Count 306 10^3/uL (130-400); Red Cell Dist. Width 15.1 % (11.5-14.5)
[2024-12-12 06:38] LABS: Blood Urea Nitrogen 28 mg/dl (9-20); Calcium 9.1 mg/dl (8.4-10.2); Carbon Dioxide 28 mmol/L (22-30); Chloride 102 mmol/L (98-107); Estimated Creatinine Clearance 53 ml/min; Glucose 109 mg/dl (70-99); Potassium 4.1 mmol/L (3.5-5.1); Sodium 137 mmol/L (135-145); eGFR > 60.00
[2024-12-12] MEDS: TYLENOL PO ×3 (07:40→20:14)
[2024-12-12] MEDS: CALCIUM GLUCONATE IV (07:45)
[2024-12-12] MEDS: LOW STRENGTH ASPIRIN 81 MG PO (07:54)
[2024-12-12] MEDS: PROTONIX 40 MG PO (07:54)
[2024-12-12] MEDS: NOVOLOG FLEXPEN-MODERATE RESISTANCE SC ×3 (07:54→16:22)
[2024-12-12] MEDS: CALCIUM GLUCONATE 100 IV (07:54)
[2024-12-12] MEDS: NEURONTIN 100 MG PO (07:55)
[2024-12-12] MEDS: PLAVIX 75 MG PO (07:55)
[2024-12-12] MEDS: MUCINEX 1200 MG PO ×2 (07:55→20:13)
[2024-12-12] MEDS: DELTASONE 30 MG PO (07:55)
[2024-12-12] MEDS: MIRALAX TUBE (07:55)
[2024-12-12] MEDS: PACERONE 400 MG PO ×3 (07:55→20:12)
[2024-12-12] MEDS: LIDOCAINE 4% PATCH TOPICAL (07:55)
[2024-12-12] MEDS: SENOKOT-S PO (08:08)
--- NOTE | 2024-12-12 08:13 | W.PN.CT ---
Today's Communication / Plan
-
-pod #7
-no issues overnight, overall looks and feels better
-diuresed well with iv Lasix 12/11 (UO 1000/3100 in 12/24 hrs)
-had orthostasis 12/11 - Midodrine restarted 5 mg tid. Holding Toprol
-on Prednisone taper
-failed voiding trial - Rivera was reinserted. Per Urology, pt will have voiding trail outpatient in a week
-encourage IS, OOB
-continue PT/OT
-appreciate everyone's input
Assessment / Plan
-
Assessment:
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 Tao on 12/05/24, pod #7
- Intraop CYN: LVEF pre and postop 60% with no new regional wma. He had baseline mild mitral valve insufficiency that remained the same and looked slightly better after surgery.
- HTN
- HLD
- COPD with moderate disease on PFTs (FEV1 48%)- on home O2 prn
- Asthma/ mild emphysema
- Prostate adenocarcinoma, diagnosed 2.5 months ago (Tx with holistic medicine
- Hx smoking 2 ppd for 40 yrs, quit 10 yrs ago
- HgA1c 5.2%
- Acute postop blood loss anemia- stable (transfused 1u PRBCs)
- Acute postop atelectasis
- Acute postop hypovolemia with subsequent hypervolemia
- Acute postop mucous plugging of the L lung with respiratory failure, required urgent re-intubation- s/p bronch 12/07 with thick bloody secretions, extubated 12/07
- Acute postop VDRF
- Acute postop RV failure with moderate to severe TR per echo 12/06, resolved per echo 12/07
- Acute postop a-fib- very brief 2 min on 12/07
- Acute postop CARMINE
- Acute postop hypotension
Chest CT 12/06/24:
1. ACUTE COMPLETE PROXIMAL ENDOBRONCHIAL OCCLUSION of the left upper and lower lobe bronchi secondary to endobronchial mucous plugging.
2. NEAR COMPLETE POSTOBSTRUCTIVE ATELECTASIS of the LEFT LOWER LOBE with associated left lung volume loss.
3. Small bilateral pleural effusions.
4. Mild bilateral upper lobe centrilobular emphysema.
5. Minimal left apical pneumothorax.
6. Moderate amount of soft tissue emphysema in the anterior mediastinum, lower neck, and upper anterior abdominal wall.
7. Recent midline sternotomy, CABG surgery, and left atrial appendage exclusion.
8. Mediastinal chest tubes and right IJ central venous catheter in place.
9. No PE
Discussed patient care with: Nursing and Care Team
Subjective
-
Date of Service: December 12, 2024
Objective Data
-
Lab Results
12/12/24 05:57
12/12/24 05:57
PT 16.7 Sec (11.4-14.6) H 12/05/24 16:40
INR 1.30 12/05/24 16:40
APTT 32.9 Sec (23.4-35.0) 12/05/24 16:40
Vital Signs
Vital Signs
Temp Pulse Resp BP Pulse Ox
98.5 F 87 18 115/64 95
12/12/24 07:45 12/12/24 08:00 12/12/24 07:45 12/12/24 07:31 12/12/24 08:00
CT Intake/Output/Weight
12/11/24 12/12/24 12/12/24
18:59 06:59 18:59
Intake Total 480 / 960 480 / 960 240 / 240
Output Total 2100 / 3100 1000 / 3100
Balance -1620 / -2140 -520 / -2140 240 / 240
SaO2: 95
Physical Exam
-
General: Awake and AOx3
Cardiovascular: Regular rate & rhythm, No Murmurs and No Rub
Respiratory: Decreased Breath Sounds
Sternum: Stable
Incision: Clean, Dry and Intact
Extremities: Other (trace edema b/l with kong-wraps on lower extremities b/l)
Abdomen: soft, nontender, nondistended, +bowel sounds
Data Reviewed
-
Lab Results: Results Reviewed
Medications: Active Meds Reviewed
Chest X-Ray: Report Reviewed and Image Reviewed
ECG: Report Reviewed and Image Reviewed
--- NOTE | 2024-12-12 08:13 | PTCARENOTE ---
Assumed care of patient from warehouse supervisor 3rd shift RN. TADO x 3 , laying in bed. SR on monitor. 4 L NC, 99%, weaned down to 2 L pulse ox 97%. C/o lots of coughing during the night, didnt sleep well. Lungs decreased with scattered rhonchi. Abdomen wnl,
starr putting out yellow urine. Trace edema appreciated in upper extremities with plus one edema in lower extremities. Plan for day discussed.
[2024-12-12] MEDS: PULMICORT 0.5 MG INH ×2 (08:25→19:04)
--- NOTE | 2024-12-12 10:14 | W.PN.PUL3 ---
Today's Communication / Plan
-
Doing well, no new complaints
Prednisone taper continued, outpatient FU to be arranged
Further postop care noted, urinary retention ongoing
Reviewed care plan with team
We will sign off at this time, please call with questions
Assessment
-
79-year-old male with hypertension, hyperlipidemia, diabetes, COPD on home oxygen FEV1 40%, DLCO 43%, prostate cancer presents with chest pressure, found to have multivessel coronary disease. He is status post CABG x 3 with left atrial clip. We
are asked to help from critical care standpoint.
S/p CABG x 3 12/05/24
Acute hypoxic respiratory failure s/p intubation
Extubated 12/05
Reintubated 12/06 for mucous plugging, worsening hypoxia, extubated 12/07
Significant mucous plugs left lower lobe, bloody secretions
Status post bedside bronchoscopy 12/07
Left lung atelectasis, improved
S/p NSTEMI, admitted 12/01/2024
Multivessel coronary disease, normal EF
Chest discomfort, shortness of breath
Postoperative anemia
Postoperative hypotension
Conditions present prior to admission
Hypertension, hyperlipidemia
Diabetes
COPD on home oxygen
History of prostate cancer, treated with homeopathic medicine
[id number] history of smoking, quit 2014
Plan
At this time, patient appears to be objectively and subjectively improved
Tolerating support bed, chest percussion therapy
Steroids started due to mucous plugging, decrease to once a day
Cough seems to be improved CT angiogram negative for pulm embolism, RV irritation likely secondary to acute hypoxia
Repeat echocardiogram with improved RV function
Off pressors
Beta-adilson started, remains on amiodarone
Continue with management per CT surgery
Off insulin
Off pressors
Chest tube discontinued
Hemoglobin 8.0 status post transfusion
Continue beta-adilson, rate control with Amio per CT surgery
Chest exam with good air exchange
Patient with significant emphysema, COPD as outpatient (severe obstruction on last PFT)
Mucomyst twice daily, he does not wish for further vest or chest PT--ok to d/c
DuoNebs 4 times daily, every 4 as needed, budesonide twice a day
Remains on methylprednisolone, continue once a day--transition to prednisone 30mg/taper at discharge
On Stiolto as outpatient, can resume as outpatient--may consider escalation of therapy
Continue nebs as OP
Sequential teds for DVT prophylaxis left lower extremity
Recommend pulmonary follow-up in 6-8 weeks, reviewed with patient
D/c planning per team, likely to go to [place]--reviewed plan of care with team
Diagnostic Data
CXR 12/09/24- Small bilateral pleural effusions. Progressed on the left. New on the right. Findings suggesting prior asbestos exposure. Stable
12/07/24- 1. Interval improvement in aeration in the left lung with resolved mediastinal shift and decreased left lung airspace consolidation suggesting improvement in endobronchial impaction and postobstructive atelectasis. Residual partial
atelectasis of the left lower lobe.
2. Small left pleural effusion.
3. Recent CABG surgery and left atrial appendage exclusion.
4. Endotracheal tube, nasogastric tube, right IJ central venous catheter, and mediastinal chest tubes remaining in place.
12/06/24- 1. ACUTE COMPLETE PROXIMAL ENDOBRONCHIAL OCCLUSION of the left upper and lower lobe bronchi secondary to endobronchial mucous plugging.
2. NEAR COMPLETE POSTOBSTRUCTIVE ATELECTASIS of the LEFT LOWER LOBE with associated left lung volume loss.
3. Small bilateral pleural effusions.
4. Mild bilateral upper lobe centrilobular emphysema.
5. Minimal left apical pneumothorax.
6. Moderate amount of soft tissue emphysema in the anterior mediastinum, lower neck, and upper anterior abdominal wall.
7. Recent midline sternotomy, CABG surgery, and left atrial appendage exclusion.
8. Mediastinal chest tubes and right IJ central venous catheter in place.
12/03/24- There are minimal bibasilar airspace opacities which are similar to prior and likely represent atelectasis.
CT Chest 12/03/24- No acute findings in the chest. Mild centrilobular emphysematous changes with mild bibasilar atelectasis. Small volume secretions within the midthoracic trachea. Moderate coronary artery calcifications.
PET 10/01/24- Chest: [There is no soft tissue focus of PSMA uptake] suspicious for malignancy.Findings are suspicious for an approximate 1.9 cm solid posterior right lobe thyroid nodule, CT image 58 series 4 without significant PSMA uptake. Coronary
artery calcifications are noted.
ECHO 12/07/24: Left ventricular ejection fraction is 60-65%. Normal right ventricular size and function. Mild tricuspid regurgitation. Estimated pulmonary artery pressure of 20-25 mmHg, assuming a right atrial pressure of 3 mmHg. Compared to
previous echo on 12/06/24, the right ventricular size and function are now normal and the degree of tricuspid regurgitation has significantly improved (previously moderate the to severe) with a decrease in PASP (previously 30-35 mmHg).
PFT 12/04/24: FEV1 1.04L 42%, post 48%. TLC 5.58L 94%, DLCO 43%
Total time spent on this consultation/encounter __51__ minutes which includes review of history, physical exam, medications, laboratory data, personal review of imaging, extensive review of outpatient records, discussion with care team and
respiratory therapy.
Subjective Data
-
Date of Service:
Date of Service: December 12, 2024
Chief Complaint: Pulmonary Follow Up
Subjective:
No new complaints, sitting in chair
Still having urinary retention issues, Rivera reinserted
Objective Data
Data Reviewed
Vital Signs / I&O / Oxygen:
Vital Signs
Temp Pulse Resp BP Pulse Ox
98.5 F 82 16 115/64 96
12/12/24 07:45 12/12/24 08:26 12/12/24 08:26 12/12/24 07:31 12/12/24 08:26
Intake and Output
0712/12/24 12/13/24
06:59 06:59 06:59
Intake Total 1460 / 1460 960 / 960 240 / 240
Output Total 2805 / 2805 3100 / 3100
Balance -1345 / -1345 -2140 / -2140 240 / 240
SaO2 [CPAP/PSV] 98
SaO2 [A/C] 95
SaO2 [CPAP] 98
SaO2 [SIMV] 98
SaO2 96
Nasal Cannula flow liters per 2
minute
Physical Exam
General: Comfortable, Good Appetite and Other (NAD)
HEENT: Normocephalic, Anicteric and Moist Mucous Membranes
Cardiovascular: S1-S2 and Regular Rhythm
Respiratory: Rhonchi and Non-Labored Respirations
GI: Soft, Non Distended and Non Tender
Neurology: Awake, Alert, Oriented and No Motor Deficits
Skin: Warm, Dry and Good Color
Labs/Micro/Reports
Lab Data
12/12/24 05:57
12/12/24 05:57
Microbiology
12/07/24 08:23 Bronch Left Lower Lobe Respiratory Culture - Final
Usual Respiratory Ashley
12/07/24 08:23 Bronch Left Lower Lobe Gram Stain - Final
--- NOTE | 2024-12-12 12:23 | PTCARENOTE ---
Sitting up in chair. VSS. Oxygen weaned to 2L 92-94%. Chest PT preformed. Assessment otherwise unchanged from prior.
--- NOTE | 2024-12-12 12:54 | CM ---
Chart reviewed. Patient is OOB sitting in the chair. Patient is independent of ADLS, lives with his 2 daughters 18 and 16 in a [address], full flight of stairs to enter. PT evaluation and Rug Cutter Helper recommending home with VN vs SNF. Patient would
like to go home. Plan is for the patient to return home with CT Transitional RN. CM to follow
[2024-12-12] MEDS: NSS IV (13:07)
--- NOTE | 2024-12-12 15:38 | PTCARENOTE ---
VSS, tolerating the chair. Remains on 2 L NC. Assessment otherwise unchanged from prior
[2024-12-12] MEDS: NEURONTIN PO ×2 (16:22→20:14)
[2024-12-12] MEDS: LIPITOR 40 MG PO (17:24)
--- NOTE | 2024-12-12 17:28 | W.PN.CD ---
Today's Communication / Plan
-
Wean oxygen as able
Patient feeling improved
Impression / Plan
-
Impression/Plan: 79-year-old male with hypertension, NIDDM (treated with tirzepatide; which he stopped 2 weeks ago), obesity, COPD (former smoker of 2 PPD x 40 years; quit 18 years ago), and prostate cancer admitted with NSTEMI.
-S/P 3V CABG (PETE to LAD, FRIMA Y-graft from PETE to OM, SVG to RPDA) with LAAL with Dr. Tao, 12/05/2024.
- in nsr
- continue post op care per CT surgery
#NSTEMI/CAD
-Troponin peaked at 0.656.
-Echocardiogram shows preserved systolic function. LVEF 55-60%.
-Cardiac catheterization shows 90% ostial RCA, 90% distal LMCA.
-S/P 3V CABG (PETE to LAD, FRIMA Y-graft from PETE to OM, SVG to RPDA) with LAAL with Dr. Tao, 12/05/2024.
#AT vs Afib 12/08, per notes. Some strip with possible rate controlled afib. No arrhythmias on telemetry in last 24-48 hours
- currently on amio and metoprolol. If BP limits use of metoprolol then will consider just use of amiodarone for the time being
.
Lightheadedness/orthostatic symptoms occurred earlier today blood pressure currently stable while seated with SBP 115.
-If continued issues with orthostatic hypotension then hold metoprolol
#COPD/Hypoxic respiratory failure
-improved.
- pulmonary critical care following
- patient on O2 NCat home
- continue tx
#Hypertension: Pre op.
- monitor post op
#NIDDM2:
-Chronic, stable.
-Hemoglobin A1c = 5.2%.
-Per mnotes. Patient stated that he was on tirzepatide for a few years; stopped it 2 weeks ago because he thinks he is 'cured'.
#Prostate cancer
-Chronic.
-Currently using a homeopathic regimen.
#Overweight, BMI 24
Subjective/Interval History:
Patient feeling much improved, on oxygen weaning as able
DATA:
CTPE, 12/06/2024:
IMPRESSION:
1. ACUTE COMPLETE PROXIMAL ENDOBRONCHIAL OCCLUSION of the left upper and lower lobe bronchi secondary to endobronchial mucous plugging.
2. NEAR COMPLETE POSTOBSTRUCTIVE ATELECTASIS of the LEFT LOWER LOBE with associated left lung volume loss.
3. Small bilateral pleural effusions.
4. Mild bilateral upper lobe centrilobular emphysema.
5. Minimal left apical pneumothorax.
6. Moderate amount of soft tissue emphysema in the anterior mediastinum, lower neck, and upper anterior abdominal wall.
7. Recent midline sternotomy, CABG surgery, and left atrial appendage exclusion.
8. Mediastinal chest tubes and right IJ central venous catheter in place.
CABG,12/05/2024:
Procedure(s) Performed:
1. Standard Sternotomy with Aortic and Right Atrial Cannulation.
2. Bilateral Internal Mammary Artery Harvesting, In Situ PETE and Free HOWARD.
3. Multi Arterial Coronary artery bypass grafting x 3 (In situ PETE to LAD, HOWARD Y off PETE to OM, Ao to RSVG to RPDA).
4. Endoscopic vein harvesting of RLE and LLE.
5. Transesophageal echocardiography.
6. Placement of Temporary Atrial and Ventricular Pacing Wires.
7. Ligation of Left Atrial Appendage.
Cath 12/03/2024:
CONCLUSIONS
1. Right dominant circulation with a 90% lesion in the ostium of the RCA, a 50% lesion in the distal aspect of the proximal RCA, a 50% lesion in the mid RCA, a 50-60% lesion in the distal RCA immediately after the crux, and 90% lesion in the distal
margin of the left main coronary artery, a 40% lesion in the proximal LAD, a 40% lesion in between D1 and D2 and a 60-70% lesion immediately distal D2 as well as a 40% lesion in the mid circumflex extending into the proximal margin of OM 2.
2. Transient hypotension with LVEDP of 10 mmHg. Hypotension resolved with fluid bolus.
CTPE, 12/01/2024:
IMPRESSION:
1. No evidence of central or segmental pulmonary embolism.
2. There are opacities within the bilateral lower lobe secondary to represent atelectasis.
3. 2.5 cm heterogeneous nodule within the posterior right hemithyroid. Recommend nonemergent thyroid ultrasound for further evaluation. Given slightly increased size from prior examination.
4. Prominent retroperitoneal lymph nodes, similar to recent prior PET and consistent with known malignancy.
TTE, 12/02/2024:
CONCLUSIONS
Estimated left ventricular ejection fraction is 55-60%. Normal regional wall
motion.
Normal right ventricular size and function.
No significant valvular disease.
No significant change since the prior study of 07/13/2016.
PFT's, 12/04/2024:
Physical Exam
Vital Signs/Labs
Vital Signs
Temp Pulse Resp BP Pulse Ox
98.6 F 99 20 121/75 93
12/12/24 15:27 12/12/24 15:27 12/12/24 15:27 12/12/24 13:07 12/12/24 15:27
12/11/24 12/12/24 12/13/24
06:59 06:59 06:59
Actual Weight 148 lb 12.992 oz 143 lb 1.28 oz
12/12/24 05:57
12/12/24 05:57
PT 16.7 Sec (11.4-14.6) H 12/05/24 16:40
INR 1.30 12/05/24 16:40
APTT 32.9 Sec (23.4-35.0) 12/05/24 16:40
Magnesium 3.0 mg/dl (1.6-2.3) H 12/11/24 04:18
Triglycerides Cancelled 12/12/24 06:00
LDL Cholesterol, Calc 100 mg/dl 12/03/24 02:26
VLDL Cholesterol, Calc 55 mg/dl (0-30) H 12/03/24 02:26
HDL Cholesterol 32 mg/dl 12/03/24 02:26
TSH 1.80 uIU/ml (0.47-4.68) 12/03/24 02:26
12/01/24
20:52
Gge-[id number]-[id number] Pept 282
Physical Exam
Constitutional: No acute distress and Comfortable
EENT: Anicteric
Cardiovascular: Rhythm & rate is regular
Respiratory: Respiratory effort normal
GI: Soft
Neuro/Psych: AO x 3
Data Reviewed
-
Date of Service: December 12, 2024
EKG: Tracing Personally Visualized and interpreted (sr)
Labs: Labs Reviewed by me
[2024-12-12] MEDS: REMOVE LIDOCAINE PATCH REMOVE (20:13)
[2024-12-12] MEDS: SENOKOT-S 1 TABLET PO (20:13)
[2024-12-12] MEDS: CARDURA PO (20:13)
--- NOTE | 2024-12-12 21:23 | PTCARENOTE ---
assumed care of patient @ 1900. received pt laying in bed, Aox3. VSS. NSR on tele. Lungs coarse, rhonchi throughout satting mid 90s on 2L. pt with frequent, moist productive cough. tolerating diet. starr present for acute retention draining clear
yellow urine. surgical sites JASON, CDI. pt resting comfortably in bed with call owen within reach .
--- NOTE | 2024-12-12 21:26 | PTCARENOTE ---
pt requesting neb treatment for stuck mucous, RT by to give neb , percussion mode activated
[2024-12-13] VITALS (17 sets, daily range): BP systolic 73–138; BP diastolic 41–79; O2SAT 96; BMI 23.8
--- NOTE | 2024-12-13 00:10 | PTCARENOTE ---
pt resting comfortably with call owen within reach , sleeping between care
[2024-12-13 03:29] LABS: Hematocrit 26.1 % (39.0-52.0); Hemoglobin 8.9 g/dL (13.0-18.0); Mean Corp Hgb Conc. 34.1 g/dL (33.0-37.0); Mean Corpuscular Volume 90.0 fL (80.0-94.0); Platelet Count 334 10^3/uL (130-400); Red Cell Dist. Width 14.6 % (11.5-14.5)
[2024-12-13 03:57] LABS: Blood Urea Nitrogen 28 mg/dl (9-20); Calcium 9.5 mg/dl (8.4-10.2); Carbon Dioxide 30 mmol/L (22-30); Chloride 103 mmol/L (98-107); Estimated Creatinine Clearance 66 ml/min; Glucose 110 mg/dl (70-99); Potassium 4.6 mmol/L (3.5-5.1); Sodium 134 mmol/L (135-145); eGFR > 60.00
--- NOTE | 2024-12-13 04:28 | PTCARENOTE ---
pt resting comfortably in bed, no change in assessment .
[2024-12-13] MEDS: TYLENOL PO ×3 (04:29→22:04)
--- NOTE | 2024-12-13 07:29 | W.PN.CT ---
Today's Communication / Plan
-
-pod #8
-doing better overall
-hypotension and orthostasis improved
-PT/OT today, evaluated by Physiatry 12/12
-UO 950/2100 (without diuretic)
-finishing Prednisone taper
-holding BB and Mg
-possible d/c soon either home�with home care versus SNF
-appreciate everyone's input
Assessment / Plan
-
Assessment:
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 Tao on 12/05/24, pod #8
- Intraop CYN: LVEF pre and postop 60% with no new regional wma. He had baseline mild mitral valve insufficiency that remained the same and looked slightly better after surgery.
- HTN
- HLD
- COPD with moderate disease on PFTs (FEV1 48%)- on home O2 prn
- Asthma/ mild emphysema
- Prostate adenocarcinoma, diagnosed 2.5 months ago (Tx with holistic medicine
- Hx smoking 2 ppd for 40 yrs, quit 10 yrs ago
- HgA1c 5.2%
- Acute postop blood loss anemia- stable (transfused 1u PRBCs)
- Acute postop atelectasis
- Acute postop hypovolemia with subsequent hypervolemia
- Acute postop mucous plugging of the L lung with respiratory failure, required urgent re-intubation- s/p bronch 12/07 with thick bloody secretions, extubated 12/07
- Acute postop VDRF
- Acute postop RV failure with moderate to severe TR per echo 12/06, resolved per echo 12/07
- Acute postop a-fib- very brief 2 min on 12/07
- Acute postop CARMINE
- Acute postop hypotension
- Acute postop urinary retention- failed 2 voiding trials- Rivera reinserted 12/11
- Acute postop orthostasis after diuresis- improved
Chest CT 12/06/24:
1. ACUTE COMPLETE PROXIMAL ENDOBRONCHIAL OCCLUSION of the left upper and lower lobe bronchi secondary to endobronchial mucous plugging.
2. NEAR COMPLETE POSTOBSTRUCTIVE ATELECTASIS of the LEFT LOWER LOBE with associated left lung volume loss.
3. Small bilateral pleural effusions.
4. Mild bilateral upper lobe centrilobular emphysema.
5. Minimal left apical pneumothorax.
6. Moderate amount of soft tissue emphysema in the anterior mediastinum, lower neck, and upper anterior abdominal wall.
7. Recent midline sternotomy, CABG surgery, and left atrial appendage exclusion.
8. Mediastinal chest tubes and right IJ central venous catheter in place.
9. No PE
Discussed patient care with: Nursing and Care Team
Subjective
-
Date of Service: December 13, 2024
Objective Data
-
Lab Results
12/13/24 03:19
12/13/24 03:19
PT 16.7 Sec (11.4-14.6) H 12/05/24 16:40
INR 1.30 12/05/24 16:40
APTT 32.9 Sec (23.4-35.0) 12/05/24 16:40
Vital Signs
Vital Signs
Temp Pulse Resp BP Pulse Ox
98.9 F 83 18 121/64 96
12/13/24 04:28 12/13/24 04:26 12/13/24 04:28 12/13/24 04:26 12/13/24 04:28
CT Intake/Output/Weight
12/12/24 12/13/24 12/13/24
18:59 06:59 18:59
Intake Total 1200 / 1680 480 / 1680
Output Total 1150 / 2100 950 / 2100
Balance 50 / -420 -470 / -420
SaO2: 96
Physical Exam
-
General: Awake and AOx3
Cardiovascular: Regular rate & rhythm, No Murmurs and No Rub
Respiratory: Decreased Breath Sounds
Sternum: Stable
Incision: Clean, Dry and Intact
Abdomen: soft, nontender, nondistended, +bowel sounds
Extremities: Other (trace edema b/l with kong-wraps on lower extremities b/l)
Data Reviewed
-
Lab Results: Results Reviewed
Medications: Active Meds Reviewed
Chest X-Ray: Report Reviewed and Image Reviewed
ECG: Report Reviewed and Image Reviewed
[2024-12-13 08:00] LABS: Glucose - Point of Care 124 mg/dl (70-99)
[2024-12-13] MEDS: DELTASONE 30 MG PO (08:03)
[2024-12-13] MEDS: MUCINEX 1200 MG PO ×2 (08:03→19:36)
[2024-12-13] MEDS: LOW STRENGTH ASPIRIN 81 MG PO (08:04)
[2024-12-13] MEDS: PLAVIX 75 MG PO (08:04)
[2024-12-13] MEDS: SENOKOT-S 1 TABLET PO ×2 (08:04→19:36)
[2024-12-13] MEDS: PACERONE 400 MG PO ×2 (08:04→17:00)
[2024-12-13] MEDS: PROTONIX 40 MG PO (08:04)
[2024-12-13] MEDS: MIRALAX TUBE (08:04)
[2024-12-13] MEDS: LIDOCAINE 4% PATCH TOPICAL (08:06)
[2024-12-13] MEDS: NEURONTIN PO ×3 (08:06→22:04)
[2024-12-13] MEDS: NOVOLOG FLEXPEN-MODERATE RESISTANCE SC ×2 (08:09→14:04)
[2024-12-13] MEDS: DUONEB 3 ML INH ×4 (08:32→20:23)
[2024-12-13] MEDS: PULMICORT 0.5 MG INH ×2 (08:32→20:23)
--- NOTE | 2024-12-13 08:52 | PTCARENOTE ---
Received pt from night shift manager RN; pt AAOx3 and resting comfortably in chair; NSR on monitor and VSS; PIV x1 patent; Lungs Diminished and coarse; positive bowel sounds; Rivera catheter draining yellow urine; palpable pulses throughout; trace
generalized edema; all surgical sites C/D/I; see nursing documentation for further details.
--- NOTE | 2024-12-13 10:21 | W.DCSUMMARY ---
Addendum entered and electronically signed by MONICO Patiño 12/14/24 09:07:
Metoprolol NOT continued on discharge
Protonix added for GIprophylaxis while on Plavix
Original Note:
Documented by User: Armando Castaneda PA-C 12/13/24 11:24
Discharge Summary
Discharge Data
Date of Admission: 12/02/24
Date of Discharge: 12/13/24
-
Pending Results: No
Hospital Course
Primary care physician:
Dominguez Merritt
Outpatient dials inspector:
Corey Stock
Inpatient consultants:
Procedures:
1. 12/03/24 Coronary angiography
. 12/05/24 Multi Arterial Coronary artery bypass grafting x 3 (In situ PETE to LAD, HOWARD Y off PETE to OM, Ao to RSVG to RPDA), Ligation of Left Atrial Appendage
Admission Diagnosis:
- NSTEMI
- HTN
- HLD
- COPD with moderate disease on PFTs (FEV1 48%)- on home O2 prn
- Asthma/ mild emphysema
- Prostate adenocarcinoma, diagnosed 2.5 months ago (Tx with holistic medicine
- Hx smoking 2 ppd for 40 yrs, quit 10 yrs ago
Discharge Diagnoses:
- CAD s/p CABG x3
- NSTEMI
- HTN
- HLD
- COPD with moderate disease on PFTs (FEV1 48%)- on home O2 prn
- Asthma/ mild emphysema
- Prostate adenocarcinoma, diagnosed 2.5 months ago (Tx with holistic medicine
- Hx smoking 2 ppd for 40 yrs, quit 10 yrs ago
- Acute postop blood loss anemia- stable (transfused 1u PRBCs)
- Acute postop atelectasis
- Acute postop mucous plugging of the L lung with respiratory failure, required urgent re-intubation- s/p bronch 12/07 with thick bloody secretions, extubated 12/07
- Acute postop RV failure with moderate to severe TR per echo 12/06, resolved per echo 12/07
- Acute postop a-fib- very brief 2 min on 12/07 and 12/08
- Acute postop CARMINE
- Acute postop hypotension with orthostasis, resolved
- Acute postop urinary retention- failed 2 voiding trials- Rivera reinserted 12/11
HPI: Samy Centeno is a 79-year-old male with a PMHx of HTN, HLD, T2DM (Mounjaro, 5.2%), COPD (PRN home O2 use - 2L), and Prostate Ca (homeopathic tx) who presented to [facility] ED (12/01/24) via EMS with complaints of chest pressure, dyspnea, and
indigestion who was admitted with NSTEMI. Mr. Centeno reported he began having indigestion over the last few days leading to calling EMS. He attempted to alleviate his indigestion with use of home magnets and Tums. He reported intermittent relieved
after 30-minutes of starting an intervention until symptoms began to progress with accompanying chest pressure and dyspnea while performing household tasks. He further shared that his home BP cuff reported a SBP of 150, which he presumed to be
higher and took an additional dose of his Lisinopril. Upon ED arrival, CT Chest was negative for PE with an incidental finding of thyroid nodule in which he was referred for outpatient follow-up with US, thyroid function was normal upon laboratory
studies. EKG showed ST/T wave abnormality which improved on a subsequent EKG with resolution of his chest pressure. Troponin was trended in which he peaked at 0.656. TTE (12/02/24) showed LVEF of 55-60% with NRWMA, normal RV, and no VHD; no changes
were noted since a previous TTE on 07/13/16. He underwent a LHC (12/03/24) with Dr. Kebede which showed R dominant Cir with 90% lesion of ostium of RCA, 50% lesion of distal aspect of prox RCA, 50% mid RCA, 50-60% distal RCA, 90% lesion in distal
margin of LM,40% pLAD, 40% D1 and D2, and 60-70% lesion distal D2, 40% lesion mid Cx extending to proximal margin of OM2; LVEDP of 10 was reported. Cardiothoracic Surgery was consulted in consideration of revascularization with CABG.
Hospital course: Patient was taken to the OR on 12/05/2024 and underwent coronary artery bypass grafting x 3 with a left atrial appendage ligation. He tolerated the procedure well and was transferred to the CVICU in stable condition on Levophed for
blood pressure support. He required volume resuscitation in the ICU and was eventually extubated later that evening. Postop day 1 he required more volume resuscitation due to hypotension, midodrine was started and his Levophed was eventually
weaned. Throughout that day he required more supplemental oxygen. Chest x-ray revealed left lower lobe atelectasis, CT PE study was performed which revealed mucous plugging. TTE revealed severely dilated right ventricle with moderate tricuspid
regurgitation. The patient could not undergo bronchoscopy due to the fact that he ate and he eventually required reintubation at approximately 8 PM. A bronchoscopy was performed the following day which liberated thick bloody secretions he was able
to be weaned and extubated from the ventilator around noon. He was started on p.o. steroids. Repeat TTE revealed mild tricuspid regurgitation normal right ventricle. On postop day 3 he was started on his beta-adilson in the morning he had an
episode of atrial fibrillation which lasted 2 minutes and was self resolving. Later that day he did develop atrial fibrillation again for which 5 mg of IV metoprolol was administered with conversion to normal sinus rhythm. Postop day 4 his
creatinine ita to 1.5 due to low urine output, he was bladder scanned and found to have 900 cc of urinary retention. Straight catheter was performed. The patient could not void following and was rebladder scanned for 800 at which time a Rivera
catheter was reinserted. He failed another voiding trial the following day and Rivera catheter was replaced with plans to discharge with the Rivera and follow-up for voiding trial as an outpatient. Throughout his stay he was on and off midodrine for
hypotension and orthostasis and ultimately he was discharged on midodrine.
Home medication changes:
Discharge Plan
-
Patient Disposition: Home (Routine Discharge)
Discharge Diagnosis/Procedures: CABG x 3 (B/L NANY), left atrial appendage clip 12/05/24
Condition: Good
Diet: Low Cholesterol and Low Sodium
Activity: No strenuous activity
Driving Restrictions: Not until seen by your Dr
Bathing Restrictions: OK to Shower
Blood Work: CBCWD in 1 week
Other Services: Cardiac Rehab
Specialty Instructions: Weigh Daily- Call MD for wt gain/loss 3 lbs overnight/5 lbs in 1 week
Activity Restrictions/Additional Instructions:
ACTIVITY:
-No strenuous activity: no heavy lifting, pushing, pulling anything over 15 pounds for one month
-continue to use stairs as tolerated
DRIVING RESTRICTIONS:
-No driving for one month or until approved by your surgeon
WOUND CARE:
-Shower daily. Use soap & water.
-No lotions, creams or powders on incision area.
DIET:
-continue a low fat/low cholesterol diet.
-IF you are diabetic, continue carb controlled diet.
CARDIAC REHAB:
-Please make appointment to start in 5-6 weeks with your local hospital program. (See Cardiac Rehabilitation Discharge Booklet).
SPECIALTY INSTRUCTIONS:
-Weigh yourself daily. Call your physician for any weight gain/loss of 3 lbs overnight or 5 lbs in one week.
-REPORT any clicking noise or uneven appearance of your sternum to your surgeon immediately.
-If you smoke, you are instructed to quit. The [place] smoking hotline phone number is [phone]
Referrals:
CT Transitional Care Nurse [Outside]
Referral Note: The Cardiothoracic Transitional Care Nurse will call you to set up a visit in 1-2 days.
[facility]. Cardiac Rehab [Outside] - 01/09/25 1:00 pm
Referral Note: Cardiac Rehab Orientation appointment is on January 09 at 1pm.
The Cardiac Rehab gym is located on the first floor of the Cardiovascular [facility] Care Pavilion.
Yanely Taylor NP [Specified Professional Personl, Cardiology] - 01/24/25 11:00 am
Dominguez Merritt DO [Family Provider, Family Practice]
Marcin Jerez MD [Active, Pulmonary Medicine]
Referral Note: 2 mo
Randal, walk test
Significant lung abnormalities postoperatively with significant mucous plugs
Benjamin Crandall Jr., MD [Active, Urology]
Referral Note: Please call the office after discharge home to schedule a voiding trial (catheter removal and bladder scan to check emptying) the week of 12/17 in the [facility] office.
Lindsey Sullivan CRNP [Specified Professional Personl, Cardiac Surgery] - 01/02/25 1:30 pm
Prescriptions:
New
prednisone 10 mg Tablet
20 mg PO DAILY Qty: 12 0RF
Rx Instructions:
Take two tabs daily for 4 days, then one tab daily for 4 days.
doxazosin 1 mg Tablet
0.5 mg PO HS Qty: 15 2RF
aspirin 81 mg Tablet,Chewable
81 mg PO DAILY Qty: 0 0RF
gabapentin 100 mg Capsule
100 mg PO TID 7 Days Qty: 21 0RF
clopidogrel 75 mg Tablet
75 mg PO DAILY Qty: 30 2RF
acetaminophen 325 mg Tablet
650 mg PO Q4HPRN PRN (Reason: mild pain,headache,temp >101F ) Qty: 0 0RF
metoprolol succinate 25 mg Tablet Extended Release 24 Hr
25 mg PO BID Qty: 60 2RF
amiodarone 200 mg Tablet
200 mg PO BID Qty: 30 2RF
Rx Instructions:
one tab twice daily for one week, then one tab daily
atorvastatin 40 mg Tablet
40 mg PO QPM Qty: 30 2RF
ipratropium-albuterol 0.5 mg-3 mg(2.5 mg base)/3 mL solution for nebulization
3 ml inhalation Q6H PRN (Reason: shortness of breath or wheezing) Qty: 90 2RF
midodrine 5 mg Tablet
5 mg PO TID@0800,1300,1800 Qty: 90 0RF
oxycodone 5 mg tablet
5 mg PO Q6HPRN PRN (Reason: severe pain) Qty: 10 0RF
Continued
Stiolto Respimat 2.5-2.5 mcg/actuation Mist
2 puff INHALATION DAILY
guaifenesin 400 mg Tablet
400 mg PO DAILY
Discontinued
lisinopril 10 MG tablet
10 mg PO DAILY
albuterol sulfate 90 mcg/actuation Hfa Aerosol Inhaler
2 puff INHALATION Q6H PRN (Reason: sob/wheeze)
Discharge Orders:
Discharge Patient (As Directed); Ordered 12/14/24
Ordered By: Charmaine Ferrer
Care Plan Goals
Care Plan Goals:
Problem: Readiness for enhanced knowledge related to diagnosis and treatment plan
Goal: Understand your diagnosis and treatment plan needs, including medications if applicable.
Instructions: Know your diagnosis, underlying causes and treatment plan options, including medications if applicable. Consult with your health care team to learn about your diagnosis and treatment plan, including medications if applicable.
Discharge Date and Time
Print Language: AMERICAN

Documented by User: MONICO Patiño 12/14/24 08:08
Discharge Summary
Discharge Data
Date of Admission: 12/02/24
Date of Discharge: 12/14/24
Discharge Plan
-
Patient Disposition: Home (Routine Discharge)
Discharge Diagnosis/Procedures: CABG x 3 (B/L NANY), left atrial appendage clip 12/05/24
Condition: Good
Diet: Low Cholesterol and Low Sodium
Activity: No strenuous activity
Driving Restrictions: Not until seen by your Dr
Bathing Restrictions: OK to Shower
Blood Work: CBCWD in 1 week
Other Services: Cardiac Rehab
Specialty Instructions: Weigh Daily- Call MD for wt gain/loss 3 lbs overnight/5 lbs in 1 week
Activity Restrictions/Additional Instructions:
ACTIVITY:
-No strenuous activity: no heavy lifting, pushing, pulling anything over 15 pounds for one month
-continue to use stairs as tolerated
DRIVING RESTRICTIONS:
-No driving for one month or until approved by your surgeon
WOUND CARE:
-Shower daily. Use soap & water.
-No lotions, creams or powders on incision area.
DIET:
-continue a low fat/low cholesterol diet.
-IF you are diabetic, continue carb controlled diet.
CARDIAC REHAB:
-Please make appointment to start in 5-6 weeks with your local hospital program. (See Cardiac Rehabilitation Discharge Booklet).
SPECIALTY INSTRUCTIONS:
-Weigh yourself daily. Call your physician for any weight gain/loss of 3 lbs overnight or 5 lbs in one week.
-REPORT any clicking noise or uneven appearance of your sternum to your surgeon immediately.
-If you smoke, you are instructed to quit. The [place] smoking hotline phone number is [phone]
Referrals:
CT Transitional Care Nurse [Outside]
Referral Note: The Cardiothoracic Transitional Care Nurse will call you to set up a visit in 1-2 days.
[facility] Cardiac Rehab [Outside] - 01/09/25 1:00 pm
Referral Note: Cardiac Rehab Orientation appointment is on January 09 at 1pm.
The Cardiac Rehab gym is located on the first floor of the [facility].
Yanely Taylor NP [Specified Professional Personl, Cardiology] - 01/24/25 11:00 am
Dominguez Merritt DO [Family Provider, Family Practice]
Marcin Jerez MD [Active, Pulmonary Medicine]
Referral Note: 2 mo
[place], walk test
Significant lung abnormalities postoperatively with significant mucous plugs
Benjamin Crandall Jr., MD [Active, Urology]
Referral Note: Please call the office after discharge home to schedule a voiding trial (catheter removal and bladder scan to check emptying) the week of 12/17 in the [facility] office.
Lindsey Sullivan CRNP [Specified Professional Personl, Cardiac Surgery] - 01/02/25 1:30 pm
Prescriptions:
New
prednisone 10 mg Tablet
20 mg PO DAILY Qty: 12 0RF
Rx Instructions:
Take two tabs daily for 4 days, then one tab daily for 4 days.
doxazosin 1 mg Tablet
0.5 mg PO HS Qty: 15 2RF
aspirin 81 mg Tablet,Chewable
81 mg PO DAILY Qty: 0 0RF
gabapentin 100 mg Capsule
100 mg PO TID 7 Days Qty: 21 0RF
clopidogrel 75 mg Tablet
75 mg PO DAILY Qty: 30 2RF
acetaminophen 325 mg Tablet
650 mg PO Q4HPRN PRN (Reason: mild pain,headache,temp >101F ) Qty: 0 0RF
metoprolol succinate 25 mg Tablet Extended Release 24 Hr
25 mg PO BID Qty: 60 2RF
amiodarone 200 mg Tablet
200 mg PO BID Qty: 30 2RF
Rx Instructions:
one tab twice daily for one week, then one tab daily
atorvastatin 40 mg Tablet
40 mg PO QPM Qty: 30 2RF
ipratropium-albuterol 0.5 mg-3 mg(2.5 mg base)/3 mL solution for nebulization
3 ml inhalation Q6H PRN (Reason: shortness of breath or wheezing) Qty: 90 2RF
midodrine 5 mg Tablet
5 mg PO TID@0800,1300,1800 Qty: 90 0RF
oxycodone 5 mg tablet
5 mg PO Q6HPRN PRN (Reason: severe pain) Qty: 10 0RF
Continued
Stiolto Respimat 2.5-2.5 mcg/actuation Mist
2 puff INHALATION DAILY
guaifenesin 400 mg Tablet
400 mg PO DAILY
Discontinued
lisinopril 10 MG tablet
10 mg PO DAILY
albuterol sulfate 90 mcg/actuation Hfa Aerosol Inhaler
2 puff INHALATION Q6H PRN (Reason: sob/wheeze)
Discharge Orders:
Discharge Patient (As Directed); Ordered 12/14/24
Ordered By: Charmaine Ferrer
Care Plan Goals
Care Plan Goals:
Problem: Readiness for enhanced knowledge related to diagnosis and treatment plan
Goal: Understand your diagnosis and treatment plan needs, including medications if applicable.
Instructions: Know your diagnosis, underlying causes and treatment plan options, including medications if applicable. Consult with your health care team to learn about your diagnosis and treatment plan, including medications if applicable.
Discharge Date and Time
Print Language: AMERICAN
--- NOTE | 2024-12-13 11:23 | CM ---
Chart reviewed. Patient OOB sitting in the chair. Patient is independent of ADLS, lives with his 2 daughters 16-18, in a 1 [address], full flight of stairs to enter, [facility] 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 Patient unsure
where his portable tank is located. Phone call placed to [facility]. Plan is for [facility] to deliver the oxygen to PM before 1pm. Plan is for the patient to return home with CT Transitional RN. CM to follow
--- NOTE | 2024-12-13 11:43 | PTCARENOTE ---
Assessment unchanged; NSR on monitor and VSS; pt ambulated hallway with RN; pt resting comfortably.
--- NOTE | 2024-12-13 13:44 | W.PN.CD ---
Today's Communication / Plan
-
Remains in sinus rhythm. On amiodarone. Off beta-adilson due to blood pressure issues. Would only use amiodarone short-term considering underlying lung disease. Would reinitiate beta-adilson when blood pressures will allow.
Continued optimization of respiratory status and treatment of COPD as directed by pulmonary
Impression / Plan
-
Impression/Plan: 79-year-old male with hypertension, NIDDM (treated with tirzepatide; which he stopped 2 weeks ago), obesity, COPD (former smoker of 2 PPD x 40 years; quit 18 years ago), and prostate cancer admitted with NSTEMI.
-S/P 3V CABG (PETE to LAD, FRIMA Y-graft from PETE to OM, SVG to RPDA) with LAAL with Dr. Tao, 12/05/2024.
- in nsr
- continue post op care per CT surgery
#NSTEMI/CAD
-Troponin peaked at 0.656.
-Echocardiogram shows preserved systolic function. LVEF 55-60%.
-Cardiac catheterization shows 90% ostial RCA, 90% distal LMCA.
-S/P 3V CABG (PETE to LAD, FRIMA Y-graft from PETE to OM, SVG to RPDA) with LAAL with Dr. Tao, 12/05/2024.
#AT vs Afib 12/08, per notes. Some strip with possible rate controlled afib. No arrhythmias on telemetry in last 24-48 hours
- currently on amio and metoprolol. If BP limits use of metoprolol then will consider just use of amiodarone for the time being
.
Lightheadedness/orthostatic symptoms patient now off metoprolol and on midodrine blood pressures have improved he did have some lightheadedness after coughing spell today.
-.Continue to monitor.
#COPD/Hypoxic respiratory failure
-improved.
- pulmonary critical care following
- patient on O2 NCat home
- Still with wheezing. Also with moderate left effusion continue to monitor and assess need for thoracentesis
#Hypertension: Pre op.
- monitor post op
#NIDDM2:
-Chronic, stable.
-Hemoglobin A1c = 5.2%.
-Per mnotes. Patient stated that he was on tirzepatide for a few years; stopped it 2 weeks ago because he thinks he is 'cured'.
#Prostate cancer
-Chronic.
-Currently using a homeopathic regimen.
#Overweight, BMI 24
Subjective/Interval History:
Patient feeling much improved, on oxygen weaning as able
DATA:
CTPE, 12/06/2024:
IMPRESSION:
1. ACUTE COMPLETE PROXIMAL ENDOBRONCHIAL OCCLUSION of the left upper and lower lobe bronchi secondary to endobronchial mucous plugging.
2. NEAR COMPLETE POSTOBSTRUCTIVE ATELECTASIS of the LEFT LOWER LOBE with associated left lung volume loss.
3. Small bilateral pleural effusions.
4. Mild bilateral upper lobe centrilobular emphysema.
5. Minimal left apical pneumothorax.
6. Moderate amount of soft tissue emphysema in the anterior mediastinum, lower neck, and upper anterior abdominal wall.
7. Recent midline sternotomy, CABG surgery, and left atrial appendage exclusion.
8. Mediastinal chest tubes and right IJ central venous catheter in place.
CABG,12/05/2024:
Procedure(s) Performed:
1. Standard Sternotomy with Aortic and Right Atrial Cannulation.
2. Bilateral Internal Mammary Artery Harvesting, In Situ PETE and Free HOWARD.
3. Multi Arterial Coronary artery bypass grafting x 3 (In situ PETE to LAD, HOWARD Y off PETE to OM, Ao to RSVG to RPDA).
4. Endoscopic vein harvesting of RLE and LLE.
5. Transesophageal echocardiography.
6. Placement of Temporary Atrial and Ventricular Pacing Wires.
7. Ligation of Left Atrial Appendage.
Cath 12/03/2024:
CONCLUSIONS
1. Right dominant circulation with a 90% lesion in the ostium of the RCA, a 50% lesion in the distal aspect of the proximal RCA, a 50% lesion in the mid RCA, a 50-60% lesion in the distal RCA immediately after the crux, and 90% lesion in the distal
margin of the left main coronary artery, a 40% lesion in the proximal LAD, a 40% lesion in between D1 and D2 and a 60-70% lesion immediately distal D2 as well as a 40% lesion in the mid circumflex extending into the proximal margin of OM 2.
2. Transient hypotension with LVEDP of 10 mmHg. Hypotension resolved with fluid bolus.
CTPE, 12/01/2024:
IMPRESSION:
1. No evidence of central or segmental pulmonary embolism.
2. There are opacities within the bilateral lower lobe secondary to represent atelectasis.
3. 2.5 cm heterogeneous nodule within the posterior right hemithyroid. Recommend nonemergent thyroid ultrasound for further evaluation. Given slightly increased size from prior examination.
4. Prominent retroperitoneal lymph nodes, similar to recent prior PET and consistent with known malignancy.
TTE, 12/02/2024:
CONCLUSIONS
Estimated left ventricular ejection fraction is 55-60%. Normal regional wall
motion.
Normal right ventricular size and function.
No significant valvular disease.
No significant change since the prior study of 07/13/2016.
PFT's, 12/04/2024:
Physical Exam
Vital Signs/Labs
Vital Signs
Temp Pulse Resp BP Pulse Ox
98.2 F 102 16 100/57 96
12/13/24 08:00 12/13/24 10:17 12/13/24 08:34 12/13/24 10:17 12/13/24 10:32
12/12/24 12/13/24 12/14/24
06:59 06:59 06:59
Actual Weight 65 kg
12/13/24 03:19
12/13/24 03:19
PT 16.7 Sec (11.4-14.6) H 12/05/24 16:40
INR 1.30 12/05/24 16:40
APTT 32.9 Sec (23.4-35.0) 12/05/24 16:40
Magnesium 3.0 mg/dl (1.6-2.3) H 12/11/24 04:18
Triglycerides Cancelled 12/12/24 06:00
LDL Cholesterol, Calc 100 mg/dl 12/03/24 02:26
VLDL Cholesterol, Calc 55 mg/dl (0-30) H 12/03/24 02:26
HDL Cholesterol 32 mg/dl 12/03/24 02:26
TSH 1.80 uIU/ml (0.47-4.68) 12/03/24 02:26
12/01/24
20:52
[id number] Pept 282
Physical Exam
Constitutional: No acute distress
Cardiovascular: Rhythm & rate is regular
Respiratory: Other (Bilateral wheezes right greater than left. Decreased breath sounds left base)
GI: Soft
Data Reviewed
-
Date of Service: December 13, 2024
Medical Decision Making: Reviewed Test Results
Echo: Report Reviewed by me
Medical Tests (PFT, Pathology etc): Report Reviewed by me
Labs: Labs Reviewed by me
[2024-12-13] MEDS: NSS IV (15:13)
--- NOTE | 2024-12-13 16:11 | PTCARENOTE ---
NSR on monitor and VSS; assessment unchanged and pt ambulating hallway with RN.
[2024-12-13 16:58] LABS: Glucose - Point of Care 230 mg/dl (70-99)
[2024-12-13] MEDS: NOVOLOG FLEXPEN-MODERATE RESISTANCE 3 UNITS SC (16:59)
[2024-12-13] MEDS: LIPITOR 40 MG PO (17:00)
[2024-12-13] MEDS: REMOVE LIDOCAINE PATCH REMOVE (19:36)
--- NOTE | 2024-12-13 19:45 | PTCARENOTE ---
Patient received from RN @ 1900. Patient sitting in chair comfortably w/ call owen in reach. AOx3 NSR BP 122/61 HR 98. Heart sounds audible. Radial and pedal pulses present. Bilateral trace ankle edema. POX 96% 2L NC. Lung bases diminished
and rhonchi noted bilaterally. Bowel sounds normoactive. Rivera draining clear yellow urine. Sternal incision well approximated DIESEL LUBE TECH. Right and left leg incisions well approximated DIESEL LUBE TECH. Right groin puncture well approximated JASON. Right wrist PIV
patent and intact. Patient ambulated in randolph. See worklist for more details.
[2024-12-13] MEDS: CARDURA 0.5 MG PO (22:04)
--- NOTE | 2024-12-13 23:55 | PTCARENOTE ---
Patient reassessed. NSR BP 104/55 HR 85 POX 94% 2L NC.
[2024-12-14] MEDS: DUONEB 3 ML INH ×2 (01:13→07:23)
--- NOTE | 2024-12-14 01:56 | W.PN.CT ---
Today's Communication / Plan
-
-pod #9
-looks and feels better overall, excited about going home in am
-BP drop to 80 with PT 12/13. (on Cardura hs for urinary retention, holding BB, Amio was decreased to 400 bid)
-follow moderate L pleural effusion
-finishing Prednisone taper
-holding BB and Mg
-possible d/c soon
-appreciate everyone's input
Assessment / Plan
-
Assessment:
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 Tao on 12/05/24, pod #9
- Intraop CYN: LVEF pre and postop 60% with no new regional wma. He had baseline mild mitral valve insufficiency that remained the same and looked slightly better after surgery.
- HTN
- HLD
- COPD with moderate disease on PFTs (FEV1 48%)- on home O2 prn
- Asthma/ mild emphysema
- Prostate adenocarcinoma, diagnosed 2.5 months ago (Tx with holistic medicine
- Hx smoking 2 ppd for 40 yrs, quit 10 yrs ago
- HgA1c 5.2%
- Acute postop blood loss anemia- stable (transfused 1u PRBCs)
- Acute postop atelectasis
- Acute postop hypovolemia with subsequent hypervolemia
- Acute postop mucous plugging of the L lung with respiratory failure, required urgent re-intubation- s/p bronch 12/07 with thick bloody secretions, extubated 12/07
- Acute postop VDRF
- Acute postop RV failure with moderate to severe TR per echo 12/06, resolved per echo 12/07
- Acute postop a-fib- very brief 2 min on 12/07
- Acute postop CARMINE
- Acute postop hypotension
- Acute postop urinary retention- failed 2 voiding trials- Rivera reinserted 12/11
- Acute postop orthostasis after diuresis- improved
- Acute postop moderate L pleural effusion
Chest CT 12/06/24:
1. ACUTE COMPLETE PROXIMAL ENDOBRONCHIAL OCCLUSION of the left upper and lower lobe bronchi secondary to endobronchial mucous plugging.
2. NEAR COMPLETE POSTOBSTRUCTIVE ATELECTASIS of the LEFT LOWER LOBE with associated left lung volume loss.
3. Small bilateral pleural effusions.
4. Mild bilateral upper lobe centrilobular emphysema.
5. Minimal left apical pneumothorax.
6. Moderate amount of soft tissue emphysema in the anterior mediastinum, lower neck, and upper anterior abdominal wall.
7. Recent midline sternotomy, CABG surgery, and left atrial appendage exclusion.
8. Mediastinal chest tubes and right IJ central venous catheter in place.
9. No PE
Discussed patient care with: Nursing and Care Team
Subjective
-
Date of Service: December 14, 2024
Objective Data
-
PT 16.7 Sec (11.4-14.6) H 12/05/24 16:40
INR 1.30 12/05/24 16:40
APTT 32.9 Sec (23.4-35.0) 12/05/24 16:40
Vital Signs
Vital Signs
Temp Pulse Resp BP Pulse Ox
98.1 F 87 16 104/55 97
12/13/24 23:02 12/14/24 01:14 12/14/24 01:14 12/13/24 23:34 12/14/24 01:14
CT Intake/Output/Weight
12/13/24 12/13/24 12/14/24
06:59 18:59 06:59
Intake Total 480 / 1680 480 / 480
Output Total 950 / 2100 500 / 900 400 / 900
Balance -470 / -420 -20 / -420 -400 / -420
SaO2: 97
Physical Exam
-
General: Awake and AOx3
Cardiovascular: Regular rate & rhythm, No Murmurs and No Rub
Respiratory: Decreased Breath Sounds
Sternum: Stable
Incision: Clean, Dry and Intact
Abdomen: soft, nontender, nondistended, +bowel sounds
Extremities: Other (trace edema b/l with kong-wraps on lower extremities b/l)
Data Reviewed
-
Lab Results: Results Reviewed
Medications: Active Meds Reviewed
Chest X-Ray: Report Reviewed and Image Reviewed
ECG: Report Reviewed and Image Reviewed
[2024-12-14 02:22] LABS: Glucose - Point of Care 131 mg/dl (70-99)
[2024-12-14 03:27] VITALS: BP 109/62
[2024-12-14 03:36] LABS: Hematocrit 28.0 % (39.0-52.0); Hemoglobin 9.4 g/dL (13.0-18.0); Mean Corp Hgb Conc. 33.6 g/dL (33.0-37.0); Mean Corpuscular Volume 90.0 fL (80.0-94.0); Platelet Count 345 10^3/uL (130-400); Red Cell Dist. Width 14.7 % (11.5-14.5)
[2024-12-14 04:03] LABS: Blood Urea Nitrogen 25 mg/dl (9-20); Calcium 9.2 mg/dl (8.4-10.2); Carbon Dioxide 28 mmol/L (22-30); Chloride 101 mmol/L (98-107); Estimated Creatinine Clearance 53 ml/min; Glucose 133 mg/dl (70-99); Potassium 4.2 mmol/L (3.5-5.1); Sodium 135 mmol/L (135-145); eGFR > 60.00
[2024-12-14 05:33] VITALS: BMI 23.4
[2024-12-14] MEDS: TYLENOL PO (07:04)
[2024-12-14] MEDS: LIDOCAINE 4% PATCH TOPICAL (07:12)
[2024-12-14] MEDS: MIRALAX TUBE (07:12)
[2024-12-14] MEDS: PULMICORT 0.5 MG INH (07:23)
[2024-12-14 07:43] VITALS: BP 108/62
[2024-12-14 07:48] LABS: Glucose - Point of Care 119 mg/dl (70-99)
[2024-12-14] MEDS: NOVOLOG FLEXPEN-MODERATE RESISTANCE SC (07:50)
[2024-12-14] MEDS: PACERONE 400 MG PO (08:16)
[2024-12-14] MEDS: DELTASONE 20 MG PO (08:17)
[2024-12-14] MEDS: SENOKOT-S 1 TABLET PO (08:17)
[2024-12-14] MEDS: PROTONIX 40 MG PO (08:17)
[2024-12-14] MEDS: MUCINEX 1200 MG PO (08:17)
[2024-12-14] MEDS: LOW STRENGTH ASPIRIN 81 MG PO (08:17)
[2024-12-14] MEDS: PLAVIX 75 MG PO (08:17)
[2024-12-14] MEDS: NEURONTIN PO (08:24)
--- NOTE | 2024-12-14 08:28 | PTCARENOTE ---
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 NSR via cm, SaO2 @ 95% on 2lnc. All procedural sites stable. Rivera catheter to gravity. Patient updated to plan of care for the day, in agreement, eager for d/c
this am. See work list for full assessment and interventions performed.
--- NOTE | 2024-12-14 10:20 | PTCARENOTE ---
Patient set up to shower, completed independently. Bladder catheter transitioned to leg bag. Discharge instructions thoroughly reviewed w/patient and sister, all questions answered. PIV removed. Patient and all belongings, including home O2 set up,
escorted to waiting vehicle for d/c home.
== END 2024-12-14 10:23 | disposition home or self-care (01) | DRG 233 ==
LOC: CVICU 00:15
PROVIDERS: Anesthesiology; Emergency Medicine; Internal Medicine; Internal Medicine Cardiovascular Disease; Nurse Practitioner; Physician Assistant Medical; ADMITTING PHYSICIAN Student in an Organized Health Care Education/Training Program; ATTENDING PHYSICIAN Thoracic Surgery (Cardiothoracic Vascular Surgery); CONSULT PHYSICIAN Internal Medicine Critical Care Medicine; CONSULT PHYSICIAN Physical Medicine & Rehabilitation; EMERGENCY PHYSICIAN Student in an Organized Health Care Education/Training Program; FAMILY PHYSICIAN Family Medicine; OTHER PHYSICIAN Internal Medicine
PROC: 4A023N7 Measurement of Cardiac Sampling and Pressure, Left Heart, Percutaneous Approach (ICD-10-PCS; 2024-12-03)
PROC: B2111ZZ Fluoroscopy of Multiple Coronary Arteries using Low Osmolar Contrast (ICD-10-PCS; 2024-12-03)
PROC: B2151ZZ Fluoroscopy of Left Heart using Low Osmolar Contrast (ICD-10-PCS; 2024-12-03)
PROC: 5A1221Z Performance of Cardiac Output, Continuous (ICD-10-PCS; 2024-12-05)
PROC: 06BP4ZZ Excision of Right Saphenous Vein, Percutaneous Endoscopic Approach (ICD-10-PCS; 2024-12-05)
PROC: 06BQ4ZZ Excision of Left Saphenous Vein, Percutaneous Endoscopic Approach (ICD-10-PCS; 2024-12-05)
PROC: 02100Z9 Bypass Coronary Artery, One Artery from Left Internal Mammary, Open Approach (ICD-10-PCS; 2024-12-05)
PROC: 021009W Bypass Coronary Artery, One Artery from Aorta with Autologous Venous Tissue, Open Approach (ICD-10-PCS; 2024-12-05)
PROC: B24BZZ4 Ultrasonography of Heart with Aorta, Transesophageal (ICD-10-PCS; 2024-12-05)
PROC: 02100A8 Bypass Coronary Artery, One Artery from Right Internal Mammary with Autologous Arterial Tissue, Open Approach (ICD-10-PCS; 2024-12-05)
PROC: 02L70CK Occlusion of Left Atrial Appendage with Extraluminal Device, Open Approach (ICD-10-PCS; 2024-12-05)
PROC: 0BH17EZ Insertion of Endotracheal Airway into Trachea, Via Natural or Artificial Opening (ICD-10-PCS; 2024-12-06)
PROC: 5A1935Z Respiratory Ventilation, Less than 24 Consecutive Hours (ICD-10-PCS; 2024-12-06)
PROC: 0BC48ZZ Extirpation of Matter from Right Upper Lobe Bronchus, Via Natural or Artificial Opening Endoscopic (ICD-10-PCS; 2024-12-07)
PROC: 0BCB8ZZ Extirpation of Matter from Left Lower Lobe Bronchus, Via Natural or Artificial Opening Endoscopic (ICD-10-PCS; 2024-12-07)
PROC: 0BC68ZZ Extirpation of Matter from Right Lower Lobe Bronchus, Via Natural or Artificial Opening Endoscopic (ICD-10-PCS; 2024-12-07)
PROC: 5A09357 Assistance with Respiratory Ventilation, Less than 24 Consecutive Hours, Continuous Positive Airway Pressure (ICD-10-PCS; 2024-12-07)
PROC: 30233N1 Transfusion of Nonautologous Red Blood Cells into Peripheral Vein, Percutaneous Approach (ICD-10-PCS; 2024-12-09)
DX: I21.4 Non-ST elevation (NSTEMI) myocardial infarction (principal); J95.821 Acute postprocedural respiratory failure; J98.11 Atelectasis; T17.590A Other foreign object in bronchus causing asphyxiation, initial encounter; D62 Acute posthemorrhagic anemia; I97.190 Other postprocedural cardiac functional disturbances following cardiac surgery; N17.9 Acute kidney failure, unspecified; J91.8 Pleural effusion in other conditions classified elsewhere; I25.10 Atherosclerotic heart disease of native coronary artery without angina pectoris; E78.00 Pure hypercholesterolemia, unspecified; I10 Essential (primary) hypertension; J44.89 Other specified chronic obstructive pulmonary disease; E11.9 Type 2 diabetes mellitus without complications; E04.1 Nontoxic single thyroid nodule; E66.9 Obesity, unspecified; J43.9 Emphysema, unspecified; W44.F9XA Other object of natural or organic material, entering into or through a natural orifice, initial encounter; Y83.2 Surgical operation with anastomosis, bypass or graft as the cause of abnormal reaction of the patient, or of later complication, without mention of misadventure at the time of the procedure; R33.9 Retention of urine, unspecified; I48.0 Paroxysmal atrial fibrillation; N99.0 Postprocedural (acute) (chronic) kidney failure; I95.1 Orthostatic hypotension; I07.1 Rheumatic tricuspid insufficiency; E87.70 Fluid overload, unspecified; E86.1 Hypovolemia; Z68.23 Body mass index [BMI] 23.0-23.9, adult; Z79.899 Other long term (current) drug therapy; Z82.49 Family history of ischemic heart disease and other diseases of the circulatory system; Z85.46 Personal history of malignant neoplasm of prostate; Z87.891 Personal history of nicotine dependence
CPT/HCPCS: 36600; 71045; 71046; 71250; 71275; 80048; 80053; 80061; 81003; 81015; 82248; 82330; 82565; 82805; 82810; 82947; 82962; 83036; 83735; 83880; 84132; 84302; 84443; 84478; 84484; 84520; 85014; 85018; 85025; 85027; 85049; 85610; 85730; 86850; 86900; 86901; 86920; 87070; 87205; 93005; 93306; 93308; 93312; 93320; 93321; 93325; 93458; 93880; 94002; 94003; 94060; 94640; 94667; 94668; 94727; 94729; 96365; 96375; 97110; 97116; 97163; 97167; 97530; 97535; 99152; 99153; 99291; C1894; J2916; P9016; P9045; Q9967

== ENCOUNTER 2025-01-11 21:23 | Inpatient (IN) | payer MEDICARE, SELFPAY ==
[2025-01-11] VITALS (12 sets, daily range): BP systolic 106–165; BP diastolic 66–94; BMI 22.4; BMI 21.8
[2025-01-11 13:29] LABS: Hematocrit 35.1 % (39.0-52.0); Hemoglobin 11.4 g/dL (13.0-18.0); Mean Corp Hgb Conc. 32.5 g/dL (33.0-37.0); Mean Corpuscular Volume 86.2 fL (80.0-94.0); Nucleated Red Blood Cells % 0 % (-); Platelet Count 547 10^3/uL (130-400); Red Cell Dist. Width 14.4 % (11.5-14.5)
[2025-01-11 13:46] LABS: ALT (SGPT) 15 U/L (0-50); AST (SGOT) 19 U/L (17-59); Albumin 3.9 g/dl (3.5-5.0); Alkaline Phosphatase 87 U/L (38-126); Blood Urea Nitrogen 13 mg/dl (9-20); Calcium 9.4 mg/dl (8.4-10.2); Carbon Dioxide 30 mmol/L (22-30); Chloride 95 mmol/L (98-107); Estimated Creatinine Clearance 85 ml/min; Glucose 123 mg/dl (70-99); Magnesium 2.2 mg/dl (1.6-2.3); Potassium 4.4 mmol/L (3.5-5.1); Sodium 132 mmol/L (135-145); Total Protein 6.9 g/dl (6.3-8.2); eGFR > 60.00
[2025-01-11 13:55] LABS: Troponin I < 0.012 ng/ml
--- NOTE | 2025-01-11 14:01 | ED.GENMED ---
History of Present Illness
<Skyla Maria DO, Resident - Last Filed: 01/12/25 06:08>
General
Chief Complaint: Breathing Problem
Source: patient
Exam Limitations: none
Time Seen by Provider: 01/11/25 13:41
History of Present Illness
History of Present Illness:
Patient is a 79-year-old male past medical history of COPD and asthma presenting with increased shortness of breath and cough for the last 3 days patient noticed increased cough shortness of breath not relieved with his normal 2 L nasal cannula
oxygen or nebulizer. Patient was using 4 L nasal cannula oxygen the last 2 days. Patient also notes an increase in his baseline blood pressure normally 115/65 as well as constipation. Patient has had difficulty sleeping due to his cough. Of note
patient had a recent CABG X4 on December 14. Patient reach out to the whistle punk this week when he noticed elevated blood pressures, they told him to stop his midodrine which he was taking 3 times a day. Patient stopped yesterday. Patient notes
that he had to take Ambien last night to fall asleep. Patient surgical incisions are healing well. Patient is using 'magnet therapy' to promote healing and to 'decrease inflammation'.
Past History
<Skyla Maria DO, Resident - Last Filed: 01/12/25 06:08>
Past History
ED Past Medical History: COPD, HTN, Hypercholesterolemia and Other (Diabetes)
ED Past Surgical History: Other (Noncontributory)
Social History
Tobacco: Former smoker
Alcohol: Occasional
Drug: None
Personal:
Living: with family
Employment: Employed
Family History
Family History: Other (Noncontributory)
Review of Systems
<Skyla Maria DO, Resident - Last Filed: 01/12/25 06:08>
Review of Systems
Constitutional: Reports no symptoms
EENT: Reports no symptoms
Respiratory: Reports cough and trouble breathing
Cardiac: Reports no symptoms
ABD/GI: Reports no symptoms
: Reports no symptoms
Musculoskeletal: Reports no symptoms
Skin: Reports no symptoms
Neurological: Reports no symptoms
Endocrine: Reports no symptoms
Hematologic/Lymphatic: Reports no symptoms
Psychiatric: Reports no symptoms
Phy Exam
<Skyal Maria DO, Resident - Last Filed: 01/12/25 06:08>
General Physical Exam
General Presentation: no apparent distress
General age: appears stated age
General Skin: warm and dry
General Habitus: normal
General Mental: alert
Cardiovascular Exam
Cardiovascular Exam: tachycardia
Heart Sounds: normal
Pulmonary Exam
Pulmonary Exam: other (Decreased lung sounds at base of right lung, productive cough)
Gastrointestinal Exam
Gastrointestinal Exam: normal bowel sounds and non tender
Skin Exam
Skin Exam: normal color, warm/dry and other (Healing surgical wounds on chest)
Psychiatric Exam
Psychiatric Exam: normal mood/affect
Scores
<Skyla Maria DO, Resident - Last Filed: 01/12/25 06:08>
Heart Failure Risk
Heart Failure Risk Score: Not Applicable
Course
<Skyla Maria DO, Resident - Last Filed: 01/12/25 06:08>
Orders/Labs/Results
Orders:
Orders
01/11/25 04:00
Dexamethasone Sod Phosphate [Decadron] 4 mg IV Q8H
01/11/25 Breakfast
Cholesterol Lowering
At Your Request: Full Participation
Cholesterol Lowering: Sodium, 2 Gram
01/11/25 13:17
EKG [Electrocardiogram (*1)] Urgent
Reason for Study: Shortness of Breath
EKG- Treatment ONCE
CXR2 [CR Chest - 2 Views ] Urgent
Comment:
Reason For Exam: shortness of breath
01/11/25 13:22
COVID-19 Antigen Urgent
Source: Nasal Swab
Complete Blood Count/With Diff Urgent
Comprehensive Metabolic Panel Urgent
Magnesium Urgent
NT-proBNP Urgent
Troponin I Urgent
Influenza A+B Rapid Molecular Urgent
SHANDA Source: Nasal Swab
Specimen Description:
01/11/25 14:16
Ipratropium/Albuterol Sulfate [Duoneb] 3 ml INH R NOW STA
01/11/25 15:49
CT Chest PE Study Urgent
Comment:
Reason For Exam: new onset SOB
01/11/25 19:49
CefTRIAXone [Rocephin] 1,000 mg IV NOW STA
Dexamethasone Sod Phosphate [Decadron] 8 mg IV NOW STA
Ipratropium/Albuterol Sulfate [Duoneb] 3 ml INH R NOW STA
01/11/25 20:18
Sterile Water [Sterile Water For Injection] 10 ml .ROUTE .STK-MED ONE
01/11/25 20:23
Doxycycline Hyclate [Vibramycin] 100 mg 0.9% Sodium Chloride 250 ml [Nss] 250 ml IV NOW
01/11/25 21:00
Amiodarone [Pacerone] 200 mg PO NOW STA
Atorvastatin [Lipitor] 40 mg PO NOW STA
Doxazosin Mesylate [Cardura] 0.5 mg PO NOW STA
01/11/25 21:01
Admit/Transfer Patient As Directed
Co-Sign Provider:
Level of Care: Inpatient admission
Assign to:: Telemetry
Physician / Group: nadeen
Diagnosis: CopD exacerbation
Reason for Telemetry: Arrhythmia
Date to Stop Telemetry: 01/14/25
Time to Stop Telemetry: 11:00
Reason for Hospitalization: COPD exacerbation
Expected length of stay greater than two midnights?: Yes
ELOS- Estimated Length of Stay in days: 3
I certify the patient meets the requirements for IP care: Yes
PRN Pain Medication Management As Directed
May give lesser potent ordered pain med per pt: Yes
preference::
Protocol:: Medication orders for pain may be administered in a
manner that supports deferring to patient preference
when the pt is:
- Requesting an ordered lesser potent pain medication.
Least to most potent pain medications are defined
as: acetaminophen < NSAID < tramadol < opioids
(morphine, oxycodone, hydromorphone).
- Requesting a lesser dose of the same medication IF
ORDERED.
- Requesting a less intrusive route of administration
if both routes are prescribed by the provider (PO <
IV).
01/11/25 21:02
Code Status As Directed
Resuscitation Status: Full Code
01/11/25 22:51
Acetaminophen [Tylenol] 650 mg PO Q4HPRN PRN
Guaifenesin [Mucinex] 600 mg PO Q12
Ipratropium/Albuterol Sulfate [Duoneb] 3 ml INH R Q4HPRN PRN
01/11/25 22:51
Respiratory Culture/Gram Stain Routine
SHANDA Source: Sputum
Specimen Description:
Activity As Directed
Activity Level: As Tolerated
Intake/ Output As Directed
Frequency: Per unit guidelines
Vital Signs As Directed
Frequency: Per unit guidelines
Weight As Directed
Frequency: Daily
Copd Education [RESP] Routine
O2 Therapy [RESP] Routine
Titrate/Wean O2 to maintain O2 sat greater than (%): 92
Special Instructions: adjust, if necessary, to avoid hyperoxia in CO2 retainers.
Use High Flow O2 if necessary
DX Deep Vein Thrombosis Video Routine
01/11/25 23:55
Protime/PTT Routine
01/12/25 06:00
Basic Metabolic Panel IN AM
Complete Blood Count/With Diff IN AM
01/12/25 08:00
Amiodarone [Pacerone] 200 mg PO BID
Aspirin Chewable [Low Strength Aspirin] 81 mg PO DAILY
Clopidogrel Bisulfate [Plavix] 75 mg PO DAILY
Ipratropium/Albuterol Sulfate [Duoneb] 3 ml INH R QID
Pantoprazole [Protonix] 40 mg PO DAILY
01/12/25 18:00
Atorvastatin [Lipitor] 40 mg PO QPM
Enoxaparin Sodium [Lovenox] 40 mg SC QPM
01/12/25 22:00
Doxazosin Mesylate [Cardura] 0.5 mg PO HS
01/13/25 06:00
Basic Metabolic Panel IN AM
Complete Blood Count/With Diff IN AM
01/14/25 06:00
Basic Metabolic Panel IN AM
Complete Blood Count/With Diff IN AM
01/14/25 11:00
DC Protocol for Telemetry ONCE
01/15/25 06:00
Basic Metabolic Panel IN AM
Complete Blood Count/With Diff IN AM
Abnormal Lab Results
01/11/25
13:22
WBC 11.7 H 10^3/uL
(4.8-10.8)
RBC 4.07 L 10^6/uL
(4.70-6.10)
Hgb 11.4 L g/dL
(13.0-18.0)
Hct 35.1 L %
(39.0-52.0)
MCHC 32.5 L g/dL
(33.0-37.0)
Plt Count 547 H 10^3/uL
(130-400)
Abs Immat Gran (auto) 0.1 H 10^3/uL
(0-0.05)
Absolute Neuts (auto) 7.3 H 10^3/uL
(1.4-6.5)
Absolute Monos (auto) 1.5 H 10^3/uL
(0.1-0.6)
Lymphocytes % 20.1 L %
(20.5-51.1)
Monocytes % 13.2 H %
(1.7-9.3)
Sodium 132 L mmol/L
(135-145)
Chloride 95 L mmol/L
(98-107)
Creatinine 0.6 L mg/dL
(0.7-1.3)
Glucose 123 H mg/dl
(70-99)
01/11/25 13:22
01/11/25 13:22
Vital Signs
Initial and Last Documented VS:
Initial Vital Signs
BP
147/88
01/11/25 13:15
Last Documented Vital Signs
Temp Pulse Resp BP Pulse Ox
98.2 F 103 18 165/85 95
01/11/25 23:22 01/11/25 23:22 01/11/25 23:22 01/11/25 23:22 01/11/25 23:22
<Naresh Elmore MD - Last Filed: 01/11/25 19:52>
Orders/Labs/Results
Orders:
Orders
01/11/25 04:00
Dexamethasone Sod Phosphate [Decadron] 4 mg IV Q8H
01/11/25 Breakfast
Cholesterol Lowering
At Your Request: Full Participation
Cholesterol Lowering: Sodium, 2 Gram
01/11/25 13:17
EKG [Electrocardiogram (*1)] Urgent
Reason for Study: Shortness of Breath
EKG- Treatment ONCE
CXR2 [CR Chest - 2 Views ] Urgent
Comment:
Reason For Exam: shortness of breath
01/11/25 13:22
COVID-19 Antigen Urgent
Source: Nasal Swab
Complete Blood Count/With Diff Urgent
Comprehensive Metabolic Panel Urgent
Magnesium Urgent
NT-proBNP Urgent
Troponin I Urgent
Influenza A+B Rapid Molecular Urgent
SHANDA Source: Nasal Swab
Specimen Description:
01/11/25 14:16
Ipratropium/Albuterol Sulfate [Duoneb] 3 ml INH R NOW STA
01/11/25 15:49
CT Chest PE Study Urgent
Comment:
Reason For Exam: new onset SOB
01/11/25 19:49
CefTRIAXone [Rocephin] 1,000 mg IV NOW STA
Dexamethasone Sod Phosphate [Decadron] 8 mg IV NOW STA
Ipratropium/Albuterol Sulfate [Duoneb] 3 ml INH R NOW STA
01/11/25 20:18
Sterile Water [Sterile Water For Injection] 10 ml .ROUTE .STK-MED ONE
01/11/25 20:23
Doxycycline Hyclate [Vibramycin] 100 mg 0.9% Sodium Chloride 250 ml [Nss] 250 ml IV NOW
01/11/25 21:00
Amiodarone [Pacerone] 200 mg PO NOW STA
Atorvastatin [Lipitor] 40 mg PO NOW STA
Doxazosin Mesylate [Cardura] 0.5 mg PO NOW STA
01/11/25 21:01
Admit/Transfer Patient As Directed
Co-Sign Provider:
Level of Care: Inpatient admission
Assign to:: Telemetry
Physician / Group: nadeen
Diagnosis: CopD exacerbation
Reason for Telemetry: Arrhythmia
Date to Stop Telemetry: 01/14/25
Time to Stop Telemetry: 11:00
Reason for Hospitalization: COPD exacerbation
Expected length of stay greater than two midnights?: Yes
ELOS- Estimated Length of Stay in days: 3
I certify the patient meets the requirements for IP care: Yes
PRN Pain Medication Management As Directed
May give lesser potent ordered pain med per pt: Yes
preference::
Protocol:: Medication orders for pain may be administered in a
manner that supports deferring to patient preference
when the pt is:
- Requesting an ordered lesser potent pain medication.
Least to most potent pain medications are defined
as: acetaminophen < NSAID < tramadol < opioids
(morphine, oxycodone, hydromorphone).
- Requesting a lesser dose of the same medication IF
ORDERED.
- Requesting a less intrusive route of administration
if both routes are prescribed by the provider (PO <
IV).
01/11/25 21:02
Code Status As Directed
Resuscitation Status: Full Code
01/11/25 22:51
Acetaminophen [Tylenol] 650 mg PO Q4HPRN PRN
Guaifenesin [Mucinex] 600 mg PO Q12
Ipratropium/Albuterol Sulfate [Duoneb] 3 ml INH R Q4HPRN PRN
01/11/25 22:51
Respiratory Culture/Gram Stain Routine
SHANDA Source: Sputum
Specimen Description:
Activity As Directed
Activity Level: As Tolerated
Intake/ Output As Directed
Frequency: Per unit guidelines
Vital Signs As Directed
Frequency: Per unit guidelines
Weight As Directed
Frequency: Daily
Copd Education [RESP] Routine
O2 Therapy [RESP] Routine
Titrate/Wean O2 to maintain O2 sat greater than (%): 92
Special Instructions: adjust, if necessary, to avoid hyperoxia in CO2 retainers.
Use High Flow O2 if necessary
DX Deep Vein Thrombosis Video Routine
01/11/25 23:55
Protime/PTT Routine
01/12/25 06:00
Basic Metabolic Panel IN AM
Complete Blood Count/With Diff IN AM
01/12/25 08:00
Amiodarone [Pacerone] 200 mg PO BID
Aspirin Chewable [Low Strength Aspirin] 81 mg PO DAILY
Clopidogrel Bisulfate [Plavix] 75 mg PO DAILY
Ipratropium/Albuterol Sulfate [Duoneb] 3 ml INH R QID
Pantoprazole [Protonix] 40 mg PO DAILY
01/12/25 18:00
Atorvastatin [Lipitor] 40 mg PO QPM
Enoxaparin Sodium [Lovenox] 40 mg SC QPM
01/12/25 22:00
Doxazosin Mesylate [Cardura] 0.5 mg PO HS
01/13/25 06:00
Basic Metabolic Panel IN AM
Complete Blood Count/With Diff IN AM
01/14/25 06:00
Basic Metabolic Panel IN AM
Complete Blood Count/With Diff IN AM
01/14/25 11:00
DC Protocol for Telemetry ONCE
01/15/25 06:00
Basic Metabolic Panel IN AM
Complete Blood Count/With Diff IN AM
Abnormal Lab Results
01/11/25
13:22
WBC 11.7 H 10^3/uL
(4.8-10.8)
RBC 4.07 L 10^6/uL
(4.70-6.10)
Hgb 11.4 L g/dL
(13.0-18.0)
Hct 35.1 L %
(39.0-52.0)
MCHC 32.5 L g/dL
(33.0-37.0)
Plt Count 547 H 10^3/uL
(130-400)
Abs Immat Gran (auto) 0.1 H 10^3/uL
(0-0.05)
Absolute Neuts (auto) 7.3 H 10^3/uL
(1.4-6.5)
Absolute Monos (auto) 1.5 H 10^3/uL
(0.1-0.6)
Lymphocytes % 20.1 L %
(20.5-51.1)
Monocytes % 13.2 H %
(1.7-9.3)
Sodium 132 L mmol/L
(135-145)
Chloride 95 L mmol/L
(98-107)
Creatinine 0.6 L mg/dL
(0.7-1.3)
Glucose 123 H mg/dl
(70-99)
01/11/25 13:22
01/11/25 13:22
Vital Signs
Initial and Last Documented VS:
Initial Vital Signs
BP
147/88
01/11/25 13:15
Last Documented Vital Signs
Temp Pulse Resp BP Pulse Ox
98.2 F 103 18 165/85 95
01/11/25 23:22 01/11/25 23:22 01/11/25 23:22 01/11/25 23:22 01/11/25 23:22
<Skyla Maria DO, Resident - Last Filed: 01/12/25 06:08>
MDM/Problems Addressed
Differential Diagnosis Includes:
Pneumonia, pleural effusion, pulmonary embolism
MDM/Problems Addressed:
Will order chest x-ray. Blood work unremarkable. COVID and flu negative. Will give DuoNeb to patient now.
EKGs showed sinus tachycardia. Troponins negative. BNP 576.
15:50 Chest x-ray unremarkable. Will order PE study.
<Skyla Maria DO, Resident - Last Filed: 01/12/25 06:08>
*Pulse Oximetry
SaO2: 94
Nasal Cannula flow liters per minute: 2
Patient hypoxic: no
*EKG
Interpreted by ED Provider?: Yes
Interpretation: abnormal
Rate: tachycardiac
Rhythm: sinus
*Critical Care Note
Total Time (30-74mins, 75-104mins- exclusive of procedures): Not Applicable
<Naresh Elmore MD - Last Filed: 01/11/25 19:52>
*Pulse Oximetry
Patient hypoxic: yes
ED Attending Note
<Skyla Maria DO, Resident - Last Filed: 01/12/25 06:08>
-
Portions of this chart may have been created with voice recognition software.� Occasional wrong word or��sound alike� substitutions may have occurred due to the inherent limitations of voice recognition software.
<aNresh Elmore MD - Last Filed: 01/11/25 19:52>
ED Attending Note
Patient seen and examined by attending physician: Yes
I performed a history and physical exam of patient and discussed management with resident, I reviewed resident's note and agree with documented findings and plan of care.: Yes
ED Attending Note:
79-year-old male with increased shortness of breath last 3 days. Had a CABG about a month ago. Has intermittent shortness of breath with his COPD. Chronically on 2 L nasal cannula. Some sputum although this is chronic. No pleuritic chest pain.
On exam patient is nontoxic. Chronically ill. He is on 2 L nasal cannula. Warm and dry. Perfusing well.
Sternotomy scar healing well. Regular rate and rhythm. Lungs with minimal tachypnea rhonchi and decreased breath sounds at the right base. He did have some thick yellow sputum with a tinge trace.
Abdomen is soft and nontender peer extremities unremarkable.
EKG shows sinus tachycardia. Labs are stable.
Impression is rhonchi decreased breath sounds right side. Differential would include pleural effusion/pneumonia/pneumothorax. Also to consider PE or pericardial effusion which are unlikely. Workup in progress. CT angiography with no pulmonary
emboli and no pericardial effusion. Some inflammatory changes in both lungs superiorly. Trace pericardial effusion. Bronchial wall thickening.
Discharge Plan
Departure
Patient Disposition: Admit
Date of Disposition: 01/11/25
Time of Disposition: 19:52
Presentation/result/management discussed w/ accepting /: Hospitalist
Discharge Problem:
Respiratory distress, COPD/bronchitis, History of recent CABG
Interventions
Interventions:
*Risk Screen - Suicide Last Done: 01/11/25 13:24
*General Assessment Last Done: 01/11/25 13:24
*Neglect/Abuse Screening Last Done: 01/11/25 13:24
*ED- Fall Risk Assessment Last Done: 01/11/25 13:24
*ED COVID-19 Vaccine History Last Done: 01/11/25 13:24
*Nursing Disposition Last Done: 01/11/25 22:44
ED- Cardiac Assessment Last Done: 01/11/25 21:36
ED- Pulmonary Assessment Last Done: 01/11/25 21:36
Discharge Date and Time
Discharge Date/Time: 01/11/25 22:45
[2025-01-11 14:17] LABS: COVID-19 Antigen Negative (Negative)
[2025-01-11] MEDS: DUONEB 3 ML INH ×2 (14:28→20:20)
[2025-01-11] MEDS: ROCEPHIN 1000 MG IV (20:20)
[2025-01-11] MEDS: DECADRON 8 MG IV (20:20)
--- NOTE | 2025-01-11 20:28 | HPS.HSE ---
Family Physician
-
Family Physician: Dominguez Merritt, DO
Chief Complaint
-
sob
cough
History of Present Illness
79-year-old male past medical history of HTn, HLD, DM,prostate ca, COPD and asthma presenting with increased shortness of breath and cough for the last 3 days. patient stated productive cough with yellowish sputum. patient uses 2l baseline and
yesterday he was requiring 4l. he was using nebs with no relief in his symptoms.his BP were elevated in 150's. his Midodrine stopped yesterday. denied fever, chills, congestion.denied chest pain. denied abdominal pain,n,v,d. denied dysuria or
hematuria. he is Starr cath for urinary retention.
patient underwent CABG 12/05/2024.
patient received a dose of ceftriaxone, doxy, Decadron, nebs in ER. admitting for further management.
Medical History
Past Medical History
Past Medical History: Reports Other
Additional Past Medical History:
Prostate cancer, BPH, Lyme disease, COPD, asthma, hypertension, type 2 diabetes
Past Surgical History: Reports Other
Additional Past Surgical History:
Hemorrhoidectomy
Social History
Tobacco: Former Smoker
Alcohol: None
Drug: None
Personal: Single
Living: With Family
Family History
Family History: Not pertinent
Allergies / Home Medications
Allergies reflects when Allergies were last updated in [employer].
Home Medications with original date entered in [facility]
Allergy/Medication List:
Allergies
Allergy/AdvReac Type Severity Reaction Status Date / Time
Penicillins Allergy Swelling; Verified 12/06/24 20:28
tolerates
cefazolin
tamsulosin (From Flomax) Allergy Rash Verified 12/09/24 15:29
Home Medications
tiotropium 2.5 mcg-olodaterol 2.5 mcg/actuation mist for inhalation (Stiolto Respimat) 2 puff inhalation DAILY COPD 09/07/24
guaifenesin 400 mg tablet 400 mg PO DAILY Cough 12/04/24
acetaminophen 325 mg tablet 650 mg (2 x 325 mg) PO Q4HPRN PRN mild pain,headache,temp >101F #0 tabs 12/13/24
ipratropium 0.5 mg-albuterol 3 mg (2.5 mg base)/3 mL nebulization soln 3 ml inhalation Q6H PRN shortness of breath or wheezing #90 mL 12/13/24
pantoprazole 40 mg tablet,delayed release 40 mg PO DAILY GI prophylaxis while on Plavix #30 tabs 12/14/24
amiodarone 200 mg tablet 200 mg PO BID Arrhythmia 01/11/25
aspirin 81 mg chewable tablet 81 mg PO DAILY Blood Clot Prevention/Tx 01/11/25
atorvastatin 40 mg tablet 40 mg PO QPM High Cholesterol 01/11/25
clopidogrel 75 mg tablet 75 mg PO DAILY Blood Clot Prevention/Tx 01/11/25
doxazosin 1 mg tablet 0.5 mg PO HS BPH 01/11/25
prednisone 10 mg tablet 20 mg PO DAILY Anti-Inflammatory 01/11/25
Review of Systems
-
Constitutional: Reports No Symptoms
EENT: Reports No Symptoms
Respiratory: Reports Cough and Trouble Breathing
Cardiac: Reports No Symptoms
Abdomen/GI: Reports No Symptoms
: Reports No Symptoms
Musculoskeletal: Reports No Symptoms
Skin: Reports No Symptoms
Neurological: Reports No Symptoms
Endocrine: Reports No Symptoms
Hematologic/Lymphatic: Reports No Symptoms
Psych: Reports No Symptoms
Physical Exam
Vital Signs
Vital Signs
Temp Pulse Resp BP Pulse Ox
98.5 F 82 20 115/66 94
01/11/25 18:59 01/11/25 18:59 01/11/25 18:59 01/11/25 18:59 01/11/25 18:59
Physical Exam
General: Well Developed, Well Nourished and No Apparent Distress
HEENT: NormoCephalic, Moist mucous membranes and Atraumatic
Respiratory: Decreased Breath Sounds
Cardiac: S1/S2 and Regular Rhythm; No Murmur or Rub
GI: Soft, Non Tender, Non Distended and Normal Bowel Sounds; No Organomegaly
Rectal: Deferred by Provider
Musculoskeletal: No Clubbing, No Cyanosis and No Edema
Skin: No Rash
Neuro: AO x 3 and Nonfocal/grossly intact
Psych: Calm
Laboratory Results
-
01/11/25 13:22
01/11/25 13:22
Laboratory Results
Total Bilirubin 0.7 mg/dl (0.2-1.3) 01/11/25 13:22
AST 19 U/L (17-59) 01/11/25 13:22
ALT 15 U/L (0-50) 01/11/25 13:22
Alkaline Phosphatase 87 U/L (38-126) 01/11/25 13:22
Troponin I < 0.012 ng/ml 01/11/25 13:22
Data Reviewed
-
Diagnostic Radiology: Report Reviewed by me
CT Scan: Report Reviewed by me
Lab Data: Labs Reviewed by me
Impression/Plan
-
# COPD exacerbation
#concern for pneumonia
#chronic hypoxic respiratory failure-o2 dependant at home on 2l
-COVID-negative
-chest CT With impression of No evidence of pulmonary embolism.Pulmonary artery branching order level of the most proximal pulmonary embolism: N/A. COPD.Possible congestive heart failure versus volume overload with mild intralobular and/or alveolar
edema.No evidence of pneumonia.8 mm nodular opacity in the right upper lobe and 5 mm nodular opacity in the right middle lobe.
-chest x ray with the impression of Possible COPD in the proper clinical setting. Superimposed slightly more localized interstitial opacity suggested in the right suprahilar region. This could represent parenchymal scarring or subtle pneumonia.
- Steroids continued
- Continue supplemental oxygen, wean as tolerated
- Nebs for short of breath and wheezing
- Mucinex for cough
-zithromycin and ceftriaxone added
-monitor QTC on zithro and amio
# Chronic leukocytosis
- WBCs 11.7, patient is afebrile
- Continue to monitor
# Paroxysmal A-fib
- Amiodarone continued
- EKG with sinus tachycardia
# History of C AD with NSTEMI
- CABG
- Aspirin continued Plavix
#urinary retention
-starr in place
# Hyperlipidemia
- Atorvastatin continue
#Essential HTN
#prostate CA
# BPH
- doxazosin continued
# GERD
- Pantoprazole
#DVT PPx
- Lovenox
# CODE STATUS
-Full code
[2025-01-11] MEDS: VIBRAMYCIN 260 MG IV (20:49)
--- NOTE | 2025-01-11 21:46 | W.PN.UPDATE ---
Update Note
Progress Note Update
Patient seen in conjunction with INORGANIC CHEMISTRY TEACHER. I agree with the findings on history and physical. I concur with assessment and plan.
This is a 79-year-old with history of CAD was recently status post CABG on December 05 with echo showing a preserved EF of 60%, COPD on 2 L home O2, atrial fibrillation who is currently on dual antiplatelet therapy and no anticoagulation presenting to
the emergency department with 3 days of worsening dyspnea on exertion and shortness of breath.
Patient reports that his dyspnea exertion is usually worse at night when he gets up to walk across the room. He reports some his cough is essentially similar to prior. He has been increasing his home oxygen. He states he has been using his
nebulizer which does provide some improvement and allows him to cough up some phlegm. He denies having any fevers or chills. He denies having any chest pain exertional or pleuritic or otherwise. He denies any lower extremity swelling. He has no
orthopnea and denies PND. He denies any acute weight gain. Patient has history of orthostatic hypotension for which he is on midodrine. Over the last few days he reports that his blood pressure has remained persistently elevated and he was told
to stop taking the midodrine. He associates the elevated blood pressure with some of his dyspnea. Patient also has a history of retention for which he is on chronic Rivera that was placed at the time of his surgery.
He denies any current urinary symptoms or flank pain or abdominal pain.
In the emergency department he remained afebrile, was satting 97% on 2 L, blood pressure was 115/66, respiratory rate of 20. CBC shows white count 11.7 with otherwise unremarkable. Electrolytes show a sodium of 132 but otherwise normal with a
bicarb of 30. BUN and creatinine were normal glucose was normal.
BNP was 500. ECG is nonischemic and shows no acute changes.
Xray: Possible COPD in the proper clinical setting. Superimposed slightly more localized interstitial opacity suggested in the right suprahilar region. This could represent parenchymal scarring or subtle pneumonia.
CTPE: No evidence of pulmonary embolism. Pulmonary artery branching order level of the most proximal pulmonary embolism: N/A. COPD. Possible congestive heart failure versus volume overload with mild intralobular and/or alveolar edema.
No evidence of pneumonia. 8 mm nodular opacity in the right upper lobe and 5 mm nodular opacity in the right middle lobe.
Assessment and plan:
79 y.o s/p CABG 1 month ago presenting with dyspnea on exertion. H/O COPD on 2 L. He reported cough with yellow phlegm to staff but says this is baseline for him. He has no wheezing. No recent COPD exacerbation. COVID negative. CT is negative
for PE and negative for Pneumonia. Suggestive of possible pulm edema. No overt volume overload on examination. Suspect COPD exacerbation. On my examination he has prominent crackles on the right lower lobe and some crackles at the left basal.
BNP is indeterminate. Will admit for management of COPD exacerbation and rule out diastolic heart failure.
- admit to telemetry
- start ceftriaxone/azithromycin for presumed pna
- check procal, if negative, will continue azithromycin for COPD exacerbation and consider diuresis
- steroid IV for now
- supplemental oxygen and nebs
- check daily weights
- if patient is not improving with steroids and nebs, may need some gentle diuresis especially in setting of elevated BP no longer requiring midodrine
CAD - no CP, s/p cabg with echo showing preserved EF and no wall motion changes.
- continue DAPT/statin
- continue amio for afib
Urinary retention
- continue indwelling catheter
DVT PPX - lovenox sq
Code Status - Full Code
[2025-01-11] MEDS: CARDURA 0.5 MG PO (22:09)
[2025-01-11 22:51] LABS: Procalcitonin < 0.05 ng/ml (0.0-0.25)
--- NOTE | 2025-01-11 23:00 | PTCARENOTE ---
Pt received from ED via stretcher at at 2240. Pt pleasant, AAOx3, absent of pain, on 2L O2, VSS, and able to ambulate into room with minimal assistance. Pt receptive to room and call owen. Pt bed in lowest position and call owen within reach. Pt
educated on importance of call owen usage, pt relays understanding and cooperation. Will continue with current plan of care.
[2025-01-11] MEDS: DECADRON IV ×3 (23:20→23:25)
[2025-01-11] MEDS: MUCINEX 600 MG PO (23:34)
[2025-01-12 00:17] LABS: INR 1.14; PT 14.9 Sec (11.4-14.6)
[2025-01-12 00:18] LABS: APTT 39.0 Sec (23.4-35.0)
[2025-01-12] MEDS: SENOKOT 8.6 MG PO ×2 (00:54→20:25)
[2025-01-12] MEDS: DECADRON 4 MG IV ×3 (03:06→20:27)
[2025-01-12 05:52] VITALS: BMI 21.8
[2025-01-12 07:00] VITALS: BP 121/82
[2025-01-12 07:52] LABS: Hematocrit 34.6 % (39.0-52.0); Hemoglobin 11.2 g/dL (13.0-18.0); Mean Corp Hgb Conc. 32.4 g/dL (33.0-37.0); Mean Corpuscular Volume 85.9 fL (80.0-94.0); Nucleated Red Blood Cells % 0 % (-); Platelet Count 582 10^3/uL (130-400); Red Cell Dist. Width 14.1 % (11.5-14.5)
[2025-01-12] MEDS: SPIRIVA RESPIMAT 2.5 MCG 2 PUFF INH (07:54)
[2025-01-12] MEDS: STRIVERDI RESPIMAT 2 PUFF INH (07:54)
[2025-01-12] MEDS: DUONEB 3 ML INH ×4 (07:55→20:32)
[2025-01-12 08:46] LABS: Blood Urea Nitrogen 18 mg/dl (9-20); Calcium 9.0 mg/dl (8.4-10.2); Carbon Dioxide 30 mmol/L (22-30); Chloride 98 mmol/L (98-107); Estimated Creatinine Clearance 71 ml/min; Glucose 247 mg/dl (70-99); Potassium 5.2 mmol/L (3.5-5.1); Sodium 135 mmol/L (135-145); eGFR > 60.00
[2025-01-12] MEDS: PACERONE 200 MG PO ×2 (08:51→20:24)
[2025-01-12] MEDS: LOW STRENGTH ASPIRIN 81 MG PO (08:51)
[2025-01-12] MEDS: MUCINEX 600 MG PO ×2 (08:51→20:24)
[2025-01-12] MEDS: PROTONIX 40 MG PO (08:52)
[2025-01-12] MEDS: ZITHROMAX 500 MG PO (08:52)
[2025-01-12] MEDS: PLAVIX 75 MG PO (08:52)
--- NOTE | 2025-01-12 10:23 | W.PN.HOSP.TC ---
Today's Communication/Plan
-
Add IV Lasix
DC ceftriaxone
Wean oxygen as able
Assessment / Plan
Assessment / Plan
Assessment and plan:
79 y.o s/p CABG 1 month ago presenting with dyspnea on exertion.
Shortness of breath
With the current clinical data points and labs and chest imaging clinical concern is acute bronchitis causing possible COPD flare. Possibility exists of concurrent heart failure.
Patient known to have COPD on as needed oxygen. Scattered chronic cough which got progressively worse, he is coughing more, and is producing phlegm which is thick in nature. He has seen benefit of nebulizers at home for his symptoms. He is
clinically improved since yesterday which he thinks is because of his steroids and nebulizer.
He is currently without wheeze but he has still bilateral basilar crackles which are prominent. CT shows no pneumonia but raises the concern about interlobular and alveolar edema concerning for fluid. BNP is indeterminate. Will give a trial of
Lasix. Noted to have normal EF. In sinus rhythm.
No evidence of pneumonia. Procalcitonin normal. Discontinue ceftriaxone and continue with doxycycline.
Continue with steroids for another day and taper
Add IV Lasix
Wean oxygen as able
Follow daily weights.
CAD - no CP, s/p cabg with echo showing preserved EF and no wall motion changes.
- Asymptomatic without chest pain. Troponins normal.
- continue DAPT/statin
- continue amio for afib
Chronic urinary retention with Rivera catheter present on admission
- continue indwelling catheter
Diabetes mellitus type 2 on Mounjaro
Started on sliding scale insulin
DVT PPX - lovenox sq
Code Status - Full Code
Follow-up progress notes and DC summary from recent admission noted
Discussed with RN
Total time spent on today's encounter was 52 minutes which included time spent in counseling the patient/family regarding diagnosis and treatment plan as listed above, goals of care, and symptom management. Case was discussed with nursing staff,
specialists, and care coordinators/case management. All labs and imaging personally reviewed by me. Remainder the time spent in detailed review of previous records, lab data, imaging, and other medical provider documentation.
Anticipated Discharge: 24 - 48 hours
Subjective/Interval History
-
Date of Service: January 12, 2025
Feeling much improved since yesterday.
Feels like her day and night. Feels steroids and nebulizers have helped.
At discharge he was feeling great.
Over the last week he starting to feel short of breath especially with exertion like going to the bathroom. When he uses nebulizers with relief.
His cough is more than usual. He has a COPD and has home O2 but uses only when needed.
His cough is productive of phlegm which is thick now. No fever or chills.
No chest pain or palpitations. No nausea or vomiting.
Prior to discharge he was prescribed a steroid taper and he was on oral prednisone 20 mg dose on admission.
He denies any weight gain. No lower extremity edema. No orthopnea.
Denies prior history of heart failure.
Objective Data
-
Labs:
Laboratory Results
01/11/25 01/12/25
23:55 06:46
WBC 3.9 L
Hgb 11.2 L
Hct 34.6 L
Plt Count 582 H
PT 14.9 H
INR 1.14
APTT 39.0 H
Sodium 135
Potassium 5.2 H
Chloride 98
Carbon Dioxide 30
BUN 18
Creatinine 0.7
Glucose 247 H
Calcium 9.0
Vital Signs:
Vital Signs
Temp Pulse Resp BP Pulse Ox
97.3 F 94 16 121/82 97
01/12/25 07:00 01/12/25 08:03 01/12/25 08:03 01/12/25 07:00 01/12/25 08:03
I&O
01/11/25 01/12/25 01/13/25
06:59 06:59 06:59
Intake Total 120 / 120
Output Total 550 / 550
Balance -430 / -430
Physical Exam
-
General: Comfortable; Negative Respiratory Distress
Respiratory: Crackles (Bilateral basilar crackles) and Non Labored Respirations; Negative Wheezes or Accessory Resp Muscle Use
Cardiac: Regular Rhythm and S1/S2; Negative JVD or Tachycardic
GI: Soft
Musculoskeletal: No Edema
Neuro: AO x 3
Psych: Calm; Negative Confused
Data Reviewed
-
CT Scan: Report Reviewed by me (CT chest)
Labs: Labs Reviewed by me
[2025-01-12 11:00] VITALS: BP 138/85
[2025-01-12] MEDS: LASIX 40 MG IV (11:25)
[2025-01-12 11:49] LABS: Glucose - Point of Care 275 mg/dl (70-99)
[2025-01-12] MEDS: NOVOLOG FLEXPEN-LOW RESISTANCE 3 UNITS SC (12:28)
[2025-01-12 15:00] VITALS: BP 121/73
[2025-01-12 17:12] LABS: Glucose - Point of Care 246 mg/dl (70-99)
[2025-01-12] MEDS: LOVENOX 40 MG SC (17:17)
[2025-01-12] MEDS: NOVOLOG FLEXPEN-LOW RESISTANCE 2 UNITS SC (17:17)
[2025-01-12] MEDS: LIPITOR 40 MG PO (17:17)
[2025-01-12 19:26] VITALS: BP 134/74
[2025-01-12 21:14] LABS: Glucose - Point of Care 214 mg/dl (70-99)
[2025-01-12] MEDS: CARDURA 0.5 MG PO (22:31)
[2025-01-12 22:57] VITALS: BP 142/77
--- NOTE | 2025-01-13 00:59 | W.PN.UPDATE ---
Update Note
Progress Note Update
patient unable to sleep and requesting Ambien which he takes at home. According to PDMP patient takes Ambien 12.5mg PO HS. Will order one small dose of Ambien 5mg now. Advise RN to maintain fall precautions.
[2025-01-13] MEDS: AMBIEN 5 MG PO ×2 (01:09→23:57)
[2025-01-13 03:23] VITALS: BP 113/65
[2025-01-13] MEDS: DECADRON 4 MG IV ×3 (04:19→23:57)
[2025-01-13 06:00] VITALS: BMI 21.9
[2025-01-13] MEDS: STRIVERDI RESPIMAT 2 PUFF INH (07:50)
[2025-01-13] MEDS: DUONEB 3 ML INH ×2 (07:50→11:17)
[2025-01-13] MEDS: SPIRIVA RESPIMAT 2.5 MCG 2 PUFF INH (07:50)
[2025-01-13 08:01] LABS: Glucose - Point of Care 179 mg/dl (70-99)
[2025-01-13] MEDS: LASIX 40 MG IV (08:29)
[2025-01-13] MEDS: NOVOLOG FLEXPEN-LOW RESISTANCE 1 UNITS SC ×2 (08:29→18:27)
[2025-01-13] MEDS: PLAVIX 75 MG PO (08:30)
[2025-01-13] MEDS: PACERONE 200 MG PO ×2 (08:30→20:17)
[2025-01-13] MEDS: LOW STRENGTH ASPIRIN 81 MG PO (08:30)
[2025-01-13] MEDS: PROTONIX 40 MG PO (08:30)
[2025-01-13] MEDS: ZITHROMAX 500 MG PO (08:30)
[2025-01-13] MEDS: MUCINEX 600 MG PO ×2 (08:30→20:17)
[2025-01-13 08:38] VITALS: BP 110/62
[2025-01-13] MEDS: MIRALAX 17 GRAMS PO (09:18)
[2025-01-13 09:29] LABS: Blood Urea Nitrogen 25 mg/dl (9-20); Calcium 9.7 mg/dl (8.4-10.2); Carbon Dioxide 29 mmol/L (22-30); Chloride 97 mmol/L (98-107); Estimated Creatinine Clearance 71 ml/min; Glucose 171 mg/dl (70-99); Potassium 4.8 mmol/L (3.5-5.1); Sodium 135 mmol/L (135-145); eGFR > 60.00
[2025-01-13 11:00] VITALS: BP 121/64
[2025-01-13 11:52] LABS: Glucose - Point of Care 314 mg/dl (70-99)
[2025-01-13 11:55] LABS: Glycohemoglobin (HgbA1c) 5.4 % (4.0-5.6)
[2025-01-13] MEDS: NOVOLOG FLEXPEN-LOW RESISTANCE 4 UNITS SC (12:05)
--- NOTE | 2025-01-13 14:52 | W.PN.HOSP.TC ---
Today's Communication/Plan
-
Continue with IV diuresis
Transition to oral prednisone
Check home O2 eval
Assessment / Plan
Assessment / Plan
Assessment and plan:
79 y.o s/p CABG 1 month ago presenting with dyspnea on exertion.
Shortness of breath
With the current clinical data points and labs and chest imaging clinical concern is acute bronchitis causing possible COPD flare. Possibility exists of concurrent heart failure.
Patient known to have COPD on as needed oxygen. Scattered chronic cough which got progressively worse, he is coughing more, and is producing phlegm which is thick in nature. He has seen benefit of nebulizers at home for his symptoms. He is
clinically improved since yesterday which he thinks is because of his steroids and nebulizer.
He is currently without wheeze but he has still bilateral basilar crackles which are prominent. CT shows no pneumonia but raises the concern about interlobular and alveolar edema concerning for fluid. BNP is indeterminate. Will Noted to have
normal EF. In sinus rhythm.
No evidence of pneumonia. Procalcitonin normal. Discontinue ceftriaxone and continue with doxycycline.
Improved clinical symptoms of cough and shortness of breath.
Continue with IV Lasix.
Transition to oral prednisone starting tomorrow
Wean oxygen as able
Follow daily weights.
CAD - no CP, s/p cabg with echo showing preserved EF and no wall motion changes.
- Asymptomatic without chest pain. Troponins normal.
- continue DAPT/statin
- continue amio for afib
Chronic urinary retention with Rivera catheter present on admission
- continue indwelling catheter
Diabetes mellitus type 2 on unro
Started on sliding scale insulin
DVT PPX - lovenox sq
Code Status - Full Code
Anticipated Discharge: Within 24 hours
Subjective/Interval History
-
Date of Service: January 13, 2025
Feeling improved.
Improved cough. Denies shortness of breath.
No nausea vomiting. No fever or chills.
Denies any dizziness. No lightheadedness.
Objective Data
-
Labs:
Laboratory Results
01/13/25
06:54
Sodium 135
Potassium 4.8
Chloride 97 L
Carbon Dioxide 29
BUN 25 H
Creatinine 0.7
Glucose 171 H
Calcium 9.7
Vital Signs:
Vital Signs
Temp Pulse Resp BP Pulse Ox
97.5 F 80 15 121/64 95
01/13/25 11:00 01/13/25 11:19 01/13/25 11:19 01/13/25 11:00 01/13/25 11:00
I&O
01/12/25 01/13/25 01/14/25
06:59 06:59 06:59
Intake Total 120 / 120 1920 / 1920
Output Total 550 / 550 2300 / 2300
Balance -430 / -430 -380 / -380
Physical Exam
-
General: Comfortable
Respiratory: Crackles (Line in the left base. Few in the right base.) and Non Labored Respirations; Negative Wheezes or Accessory Resp Muscle Use
Cardiac: Regular Rhythm and S1/S2
GI: Soft
Musculoskeletal: No Edema
Neuro: AO x 3
Psych: Calm
Data Reviewed
-
Labs: Labs Reviewed by me
[2025-01-13 15:00] VITALS: BP 126/68
[2025-01-13] MEDS: LIPITOR 40 MG PO (17:09)
[2025-01-13] MEDS: LOVENOX 40 MG SC (17:09)
[2025-01-13 18:05] LABS: Glucose - Point of Care 168 mg/dl (70-99)
[2025-01-13 19:19] VITALS: BP 118/68
[2025-01-13 20:49] LABS: Glucose - Point of Care 285 mg/dl (70-99)
[2025-01-13] MEDS: CARDURA 0.5 MG PO (22:28)
[2025-01-13] MEDS: SENOKOT 8.6 MG PO (22:28)
[2025-01-13 23:19] VITALS: BP 119/69
[2025-01-14 03:11] VITALS: BP 114/51
[2025-01-14 06:00] VITALS: BMI 21.7
[2025-01-14] MEDS: SPIRIVA RESPIMAT 2.5 MCG 2 PUFF INH (06:57)
[2025-01-14] MEDS: STRIVERDI RESPIMAT 2 PUFF INH (06:57)
[2025-01-14 07:00] VITALS: BP 119/70
[2025-01-14 07:51] LABS: Glucose - Point of Care 202 mg/dl (70-99)
[2025-01-14 08:17] LABS: Hematocrit 35.1 % (39.0-52.0); Hemoglobin 11.4 g/dL (13.0-18.0); Mean Corp Hgb Conc. 32.5 g/dL (33.0-37.0); Mean Corpuscular Volume 85.0 fL (80.0-94.0); Platelet Count 673 10^3/uL (130-400); Red Cell Dist. Width 14.2 % (11.5-14.5)
[2025-01-14] MEDS: NOVOLOG FLEXPEN-LOW RESISTANCE 2 UNITS SC (08:29)
[2025-01-14] MEDS: LASIX 40 MG IV (08:30)
[2025-01-14] MEDS: MIRALAX 17 GRAMS PO (08:30)
[2025-01-14] MEDS: LOW STRENGTH ASPIRIN 81 MG PO (08:30)
[2025-01-14] MEDS: ZITHROMAX 500 MG PO (08:30)
[2025-01-14] MEDS: PLAVIX 75 MG PO (08:31)
[2025-01-14] MEDS: MUCINEX 600 MG PO (08:31)
[2025-01-14] MEDS: PACERONE 200 MG PO (08:31)
[2025-01-14] MEDS: PROTONIX 40 MG PO (08:31)
[2025-01-14 08:34] LABS: Blood Urea Nitrogen 31 mg/dl (9-20); Calcium 9.6 mg/dl (8.4-10.2); Carbon Dioxide 29 mmol/L (22-30); Chloride 97 mmol/L (98-107); Estimated Creatinine Clearance 62 ml/min; Glucose 194 mg/dl (70-99); Potassium 4.8 mmol/L (3.5-5.1); Sodium 135 mmol/L (135-145); eGFR > 60.00
--- NOTE | 2025-01-14 10:47 | CM ---
radiology services manager reviewed patient's chart and met with patient and patient's daughters live with him in a one story home, 12-13 steps to enter, patient is independent with adl's and ambulation, no dme, patient drives, patient has home oxygen from
[employer]. Plan is to home when stable, no needs.
PCP: Dominguez Merritt
Pharmacy: [facility]
[2025-01-14 11:00] VITALS: BP 123/77
[2025-01-14 12:06] LABS: Glucose - Point of Care 160 mg/dl (70-99)
[2025-01-14] MEDS: NOVOLOG FLEXPEN-LOW RESISTANCE 1 UNITS SC (12:29)
[2025-01-14] MEDS: DECADRON 4 MG IV (12:29)
--- NOTE | 2025-01-14 14:26 | W.PN.HOSP.TC ---
Today's Communication/Plan
-
DC
Assessment / Plan
Assessment / Plan
Assessment and plan:
79 y.o s/p CABG 1 month ago presenting with dyspnea on exertion.
Shortness of breath
With the current clinical data points and labs and chest imaging clinical concern is acute bronchitis causing possible COPD flare. Possibility exists of concurrent diastolic heart failure.
Patient known to have COPD on as needed oxygen. chronic cough which got progressively worse, he is coughing more, and is producing phlegm which is thick in nature. He has seen benefit of nebulizers at home for his symptoms. He is clinically
improved since admission which he thinks is because of his steroids and nebulizer.
His chest is clear to auscultation today. CT shows no pneumonia but raises the concern about interlobular and alveolar edema concerning for fluid. BNP is indeterminate. Echo recently noted to have normal EF. In sinus rhythm.
No evidence of pneumonia. Procalcitonin normal. Discontinue ceftriaxone and continue with Zithromax for total of 10 days
Improved clinical symptoms of cough and shortness of breath.
Improved provide resolved symptoms so I would hold further IV Lasix .
Transition to oral prednisone
Suspect the elevation of white count after initial drop is secondary to steroids
Continue with oxygen as needed on discharge.
Chronic hypoxic respiratory insufficiency and uses as needed oxygen at home
CAD - no CP, s/p cabg with echo showing preserved EF and no wall motion changes.
- Asymptomatic without chest pain. Troponins normal.
- continue DAPT/statin
- continue amio for afib
Chronic urinary retention with Rivera catheter present on admission
- continue indwelling catheter
Diabetes mellitus type 2 on Mounjaro
Started on sliding scale insulin
DVT PPX - lovenox sq
Code Status - Full Code
Medically stable for discharge
Anticipated Discharge: Today
Subjective/Interval History
-
Date of Service: January 14, 2025
Feels much improved.
Resolved cough. Resolved shortness of breath. No chest pain. Feels great. Thinks he is ready for home.
He says he is not requiring oxygen at rest but requiring 1 L with exertion when checked by staff yesterday
Objective Data
-
Labs:
Laboratory Results
01/14/25
07:35
WBC 16.5 H
Hgb 11.4 L
Hct 35.1 L
Plt Count 673 H
Sodium 135
Potassium 4.8
Chloride 97 L
Carbon Dioxide 29
BUN 31 H
Creatinine 0.8
Glucose 194 H
Calcium 9.6
Vital Signs:
Vital Signs
Temp Pulse Resp BP Pulse Ox
97.4 F 87 18 123/77 94
01/14/25 11:00 01/14/25 11:00 01/14/25 11:00 01/14/25 11:00 01/14/25 11:00
I&O
01/13/25 01/14/25 01/15/25
06:59 06:59 06:59
Intake Total 1920 / 1920 1440 / 1440
Output Total 2300 / 2300 2400 / 2400
Balance -380 / -380 -960 / -960
Physical Exam
-
Respiratory: Clear to Auscultation and Non Labored Respirations; Negative Wheezes, Crackles or Accessory Resp Muscle Use
Cardiac: Regular Rhythm and S1/S2; Negative Tachycardic
GI: Soft
Musculoskeletal: No Edema
Neuro: AO x 3
Psych: Calm; Negative Confused
Data Reviewed
-
Labs: Labs Reviewed by me
[2025-01-14 15:00] VITALS: BP 122/80
[2025-01-14] MEDS: PREVNAR 20 0.5 ML IM (15:03)
--- NOTE | 2025-01-14 16:16 | W.DCSUMMARY ---
Discharge Summary
Discharge Data
Date of Admission: 01/11/25
Date of Discharge: 01/14/25
-
Pending Results: No
Hospital Course
Primary diagnosis:
Acute bronchitis suspected bacterial
Possible concurrent acute diastolic heart failure
Secondary diagnosis:
Coronary artery disease s/p CABG 12/05/2024
Chronic urinary retention with Rivera catheter in situ
Diabetes mellitus type 2
Chronic obstructive pulmonary disease on home O2
Hospital course:
Patient presented with 3 days of worsening shortness of breath and cough which was productive. Clinical symptomatology was concerning for acute bronchitis causing possible COPD flare. He is known to have COPD with chronic hypoxic respiratory
insufficiency on home O2. Chest x-ray did not suggest evidence of pneumonia. Procalcitonin was normal. He was treated for possible bronchitis with Zithromax with improvement in clinical symptomatology.
There was no weight gain or lower extremity edema. Chest x-ray did not show any CHF but CT of chest showed interlobular and alveolar edema which was concerning for fluid. His BNP was in the indeterminate range for his age-89, troponins were
negative. He is known to have normal EF on recent echo. Clinical suspicion was for acute diastolic CHF decompensation and he was given Lasix with 4 pound weight gain and I feel that it played in the role of improvement of his shortness of breath.
On day of discharge he felt he was compensated and no need for further Lasix.
Once he was clinically improved he was discharged on steroid taper and complete course of Zithromax.
He had no chest pain or anginal symptoms. He was continued on DAPT and statins. He was on Amio for postop A-fib.; Not on anticoagulation. He was in sinus rhythm.
Discharge Plan
-
Patient Disposition: Home (Routine Discharge)
Discharge Diagnosis/Procedures: Acute bronchitis ;possible ac diastolic CHF
Diet: Regular and Low Cholesterol
Activity: As tolerated
Driving Restrictions: As prior to admission
Bathing Restrictions: None
Specialty Instructions: Weigh Daily- Call MD for wt gain/loss 3 lbs overnight/5 lbs in 1 week
Referrals:
Dominguez Merritt, DO [Primary Care Provider, Family Practice] - in less than 1 week
Prescriptions:
New
prednisone 10 mg tablet
10 mg PO DIRECTED Qty: 18 0RF
Rx Instructions:
30mg daily for 3 days and cut it by 10mg every 3 days
azithromycin [Zithromax] 500 mg tablet
500 mg PO DAILY 2 Days Qty: 2 0RF
Continued
Stiolto Respimat 2.5-2.5 mcg/actuation Mist
2 puff INHALATION DAILY
guaifenesin 400 mg Tablet
400 mg PO DAILY
acetaminophen 325 mg Tablet
650 mg PO Q4HPRN PRN (Reason: mild pain,headache,temp >101F ) Qty: 0 0RF
ipratropium-albuterol 0.5 mg-3 mg(2.5 mg base)/3 mL solution for nebulization
3 ml inhalation Q6H PRN (Reason: shortness of breath or wheezing) Qty: 90 2RF
pantoprazole 40 mg Tablet,Delayed Release (Dr/Ec)
40 mg PO DAILY Qty: 30 2RF
atorvastatin 40 mg tablet
40 mg PO QPM
doxazosin 1 mg tablet
0.5 mg PO HS
amiodarone 200 mg tablet
200 mg PO BID
Rx Instructions:
one tab twice daily for one week, then one tab daily
clopidogrel 75 mg tablet
75 mg PO DAILY
aspirin 81 mg tablet,chewable
81 mg PO DAILY
zolpidem [Ambien] 5 mg Tablet
5 mg PO HS PRN (Reason: sleep)
Discontinued
prednisone 10 mg tablet
20 mg PO DAILY
Rx Instructions:
Take two tabs daily for 4 days, then one tab daily for 4 days.
Discharge Orders:
Discharge Patient (As Directed); Ordered 01/14/25
Ordered By: Carlos Enrique Garcia
Discharge Date and Time
Discharge Date/Time: 01/14/25 15:31
Print Language: TRISTANIAN
--- NOTE | 2025-01-21 10:28 | OID.L.PAT ---
Pulmonary Nodule Pat Letter
- -
01/21/25
GAVI NICOLE
[address] [facility]
[place], [place]
Dear GAVI,
A pulmonary nodule was seen on an imaging study done by [facility]. This was reviewed by the [facility] Pulmonary Nodule Advisory Board and the following recommendation was made:
Recommendation: Follow up CT Chest in 3 months.
If you have any questions, please do not hesitate to contact your primary care physician. If you are in need of a Physician, you can go to [email or web address] and click on 'Find a Provider'. Type 'Family Medicine' in the search.
Oncology Nurse Navigator
[facility]
[phone]
--- NOTE | 2025-01-21 10:28 | OID.L.REC ---
Pulmonary Nodule Follow Up
- Recommendation
01/21/25
Pulmonary Nodule Review Recommendations
Your patient, GAVI NICOLE, had a pulmonary nodule seen on an imaging study done on 01/11/25 in the [facility] [place] Radiology Department.
This was reviewed by the [facility] [place] Pulmonary Nodule Advisory Board and the following recommendation was made:
Recommendation: Follow up CT Chest in 3 months.
If you have any questions, please do not hesitate to contact us.
Sincerely,
Oncology Nurse Navigator
[facility] [place]
[phone]
== END 2025-01-14 15:31 | disposition home or self-care (01) | DRG 190 ==
LOC: 4 WEST ACU 21:23
PROVIDERS: Emergency Medicine; Registered Nurse; ADMITTING PHYSICIAN Internal Medicine; ATTENDING PHYSICIAN Internal Medicine; EMERGENCY PHYSICIAN Emergency Medicine; PRIMARYCARE PHYSICIAN Family Medicine
DX: J44.0 Chronic obstructive pulmonary disease with (acute) lower respiratory infection (principal); I50.31 Acute diastolic (congestive) heart failure; J96.11 Chronic respiratory failure with hypoxia; J44.1 Chronic obstructive pulmonary disease with (acute) exacerbation; J20.9 Acute bronchitis, unspecified; D72.829 Elevated white blood cell count, unspecified; I11.0 Hypertensive heart disease with heart failure; I48.0 Paroxysmal atrial fibrillation; E11.9 Type 2 diabetes mellitus without complications; I25.10 Atherosclerotic heart disease of native coronary artery without angina pectoris; N40.1 Benign prostatic hyperplasia with lower urinary tract symptoms; R33.8 Other retention of urine; K21.9 Gastro-esophageal reflux disease without esophagitis; C61 Malignant neoplasm of prostate; I25.2 Old myocardial infarction; Z11.52 Encounter for screening for COVID-19; Z99.81 Dependence on supplemental oxygen; Z87.891 Personal history of nicotine dependence; Z79.899 Other long term (current) drug therapy; Z79.02 Long term (current) use of antithrombotics/antiplatelets
CPT/HCPCS: 71046; 71275; 80048; 80053; 82962; 83036; 83735; 83880; 84145; 84484; 85025; 85027; 85610; 85730; 87205; 87502; 87811; 90677; 93005; 94640; 96374; 96375; 99285; G0009; Q9967

== ENCOUNTER → 2025-04-15 12:50 | Outpatient (REF) | payer MEDICARE, SELFPAY | LOC: HWRAD 12:50 | PROVIDERS: ATTENDING PHYSICIAN Nurse Practitioner Family; FAMILY PHYSICIAN Family Medicine | DX: R91.8 Other nonspecific abnormal finding of lung field (principal) | CPT/HCPCS: 71250 ==

== ENCOUNTER → 2025-04-17 16:05 | Outpatient (REF) | payer MEDICARE, SELFPAY | LOC: RAD 16:05 | PROVIDERS: ATTENDING PHYSICIAN Family Medicine; REFERRING PHYSICIAN Surgery | DX: C61 Malignant neoplasm of prostate (principal) | CPT/HCPCS: 74177; Q9967 ==

== ENCOUNTER 2025-05-18 11:08 | Emergency (ER) | payer MEDICARE, SELFPAY ==
[2025-05-18 11:11] VITALS: BP 122/86
[2025-05-18 15:09] VITALS: BP 117/78; BMI 22.4
[2025-05-18] MEDS: NSS 1000 IV (15:45)
[2025-05-18 15:59] LABS: Urine Character Cloudy (Clear)
[2025-05-18 16:01] LABS: Hematocrit 41.2 % (39.0-52.0); Hemoglobin 14.0 g/dL (13.0-18.0); Mean Corp Hgb Conc. 34.0 g/dL (33.0-37.0); Mean Corpuscular Volume 84.3 fL (80.0-94.0); Nucleated Red Blood Cells % 0 % (-); Platelet Count 222 10^3/uL (130-400); Red Cell Dist. Width 14.2 % (11.5-14.5)
[2025-05-18 16:06] LABS: Urine Red Blood Cell >100 /HPF (0-2); Urine Squamous Cell 0-2 /LPF (Few)
[2025-05-18 16:22] LABS: ALT (SGPT) 72 U/L (0-50); AST (SGOT) 39 U/L (17-59); Albumin 4.4 g/dl (3.5-5.0); Alkaline Phosphatase 56 U/L (38-126); Blood Urea Nitrogen 19 mg/dl (9-20); Calcium 9.6 mg/dl (8.4-10.2); Carbon Dioxide 25 mmol/L (22-30); Chloride 105 mmol/L (98-107); Estimated Creatinine Clearance 75 ml/min; Glucose 78 mg/dl (70-99); Potassium 4.2 mmol/L (3.5-5.1); Sodium 137 mmol/L (135-145); Total Protein 6.8 g/dl (6.3-8.2); eGFR > 60.00
--- NOTE | 2025-05-18 16:31 | ED.GENMED ---
History of Present Illness
General
Chief Complaint: Urinary Symptoms
Time Seen by Provider: 05/18/25 15:01
History of Present Illness
History of Present Illness:
79-year-old male with history of CAD status post CABG history of prostate cancer with Rivera catheter presenting to the emergency department for concern of hematuria. Patient reports that he noticed a right inguinal hernia, which only pops out with
increased pressure with standing, will go back in when he is lying down. He was doing some leg exercises to help get the hernia back in and then noted some blood in his Rivera catheter bag. Initially did have some lightheadedness which has since
resolved. He is not on any blood thinners. Denies any significant abdominal pain. Denies fever. Denies chest pain or difficulty breathing or additional acute medical complaints
Past History
Past History
ED Past Medical History: COPD, HTN, Hypercholesterolemia and Other (Diabetes)
ED Past Surgical History: Other (Noncontributory)
Social History
Tobacco: Former smoker
Alcohol: Occasional
Drug: None
Personal:
Living: with family
Employment: Employed
Family History
Family History: Other (Noncontributory)
Phy Exam
Physical Exam
Physical Exam:
General: Well-appearing, no clinical signs of dehydration, nontoxic and in no acute distress
HEENT: protecting airway
Neck: appears supple
CV: Normal heart rate
Resp: No accessory muscle use, no increased work of breathing
Abd: Soft and non-distended, no tenderness to palpation. Palpable abdominal wall defect in the inguinal region with no palpable hernia at this time
Extremities: No deformities, no swelling
Neuro: alert, no focal neurologic deficit
: Dark brown urine
Rectal: deferred
Psych: Normal affect
Skin: Intact
Course
Orders/Labs/Results
Orders:
Orders
05/18/25 15:19
Rivera Placement- Treatment ONCE
Reason for insertion: Chronic Rivera on Admit
05/18/25 15:20
0.9% Sodium Chloride 1000 ml [Nss] 1,000 ml IV BOLUS
05/18/25 15:45
Complete Blood Count/With Diff Urgent
Comprehensive Metabolic Panel Urgent
Urinalysis Reflex To Culture Urgent
Date Specimen was Collected: 05/18/25
Time Specimen was Collected: 15:44
Urine Microscopic Reflex Cult Urgent
Urine Culture Urgent
SHANDA Source: U
Specimen Description:
Date Specimen was Collected: 05/18/25
Time Specimen was Collected: 15:44
Abnormal Lab Results
05/18/25
15:45
WBC 12.4 H 10^3/uL
(4.8-10.8)
Absolute Neuts (auto) 7.8 H 10^3/uL
(1.4-6.5)
Absolute Monos (auto) 1.0 H 10^3/uL
(0.1-0.6)
ALT 72 H U/L
(0-50)
Urine Ketones 1+ A
(Negative)
Ur Occult Blood Reflex 4+ A
(Negative)
Urine Nitrite (Reflex) Positive A
(Negative)
Leukocyte Esterase Rfl 2+ A
(Negative)
Urine RBC >100 A /HPF
(0-2)
Urine WBC (Reflex) 11-15 A /HPF
(0-5)
Urine Bacteria (Reflex) Many A
(Negative)
Urine Albumin (Reflex) 3+ A
(Neg - Trace)
05/18/25 15:45
05/18/25 15:45
Vital Signs
Initial and Last Documented VS:
Initial Vital Signs
Temp Pulse Resp BP Pulse Ox
97.5 F 107 18 122/86 95
05/18/25 11:11 05/18/25 11:11 05/18/25 11:11 05/18/25 11:11 05/18/25 11:11
Last Documented Vital Signs
Temp Pulse Resp BP Pulse Ox
97.5 F 93 18 123/65 95
05/18/25 11:11 05/18/25 17:07 05/18/25 17:07 05/18/25 17:07 05/18/25 17:07
MDM/Problems Addressed
MDM/Problems Addressed:
79-year-old male with history of Rivera catheter from prostate cancer presenting to the emergency department for concern of hematuria. Vital signs on arrival are significant for mild tachycardia.
On exam patient resting comfortably, no acute distress. Patient afebrile, nontoxic. Unremarkable abdominal exam without any palpable tenderness, no bulging or irreducible hernia. Do feel defect, so suspect that patient does have an inguinal
hernia that will need to be repaired outpatient. However regarding hematuria, suspect possible mild trauma to the urethra after doing leg exercises versus a urinary tract infection. Rivera catheter replaced and urine sent from clean specimen.
17:00 - Labs are unremarkable. Normal hemoglobin. Urine does show evidence of infection. Will start patient on antibiotics. Did discuss with urology. Ultimately at this time given hemodynamic stability, no carlos hematuria, feel stable for
discharge with outpatient antibiotics and follow-up. Return precautions discussed and patient verbalized understanding
*Pulse Oximetry
SaO2: 96
Oxygen Mode of Delivery: Room air
Patient hypoxic: no
*Critical Care Note
Total Time (30-74mins, 75-104mins- exclusive of procedures): Not Applicable
ED Attending Note
-
Portions of this chart may have been created with voice recognition software.� Occasional wrong word or��sound alike� substitutions may have occurred due to the inherent limitations of voice recognition software.
Discharge Plan
Departure
Prescriptions:
No Action
Stiolto Respimat 2.5-2.5 mcg/actuation Mist
2 puff INHALATION DAILY
guaifenesin 400 mg Tablet
400 mg PO DAILY
acetaminophen 325 mg Tablet
650 mg PO Q4HPRN PRN (Reason: mild pain,headache,temp >101F ) Qty: 0 0RF
ipratropium-albuterol 0.5 mg-3 mg(2.5 mg base)/3 mL solution for nebulization
3 ml inhalation Q6H PRN (Reason: shortness of breath or wheezing) Qty: 90 2RF
pantoprazole 40 mg Tablet,Delayed Release (Dr/Ec)
40 mg PO DAILY Qty: 30 2RF
atorvastatin 40 mg tablet
40 mg PO QPM
doxazosin 1 mg tablet
0.5 mg PO HS
amiodarone 200 mg tablet
200 mg PO BID
Rx Instructions:
one tab twice daily for one week, then one tab daily
clopidogrel 75 mg tablet
75 mg PO DAILY
aspirin 81 mg tablet,chewable
81 mg PO DAILY
zolpidem [Ambien] 5 mg Tablet
5 mg PO HS PRN (Reason: sleep)
prednisone 10 mg tablet
10 mg PO DIRECTED Qty: 18 0RF
Rx Instructions:
30mg daily for 3 days and cut it by 10mg every 3 days
azithromycin [Zithromax] 500 mg tablet
500 mg PO DAILY 2 Days Qty: 2 0RF
Referrals:
Dominguez Merritt DO [Family Provider, Family Practice]
Interventions
Interventions:
*General Assessment Last Done: 05/18/25 11:11
*Neglect/Abuse Screening Last Done: 05/18/25 11:11
*Risk Screen - Suicide (C-SSRS) Last Done: 05/18/25 11:16
ED-Male Genitourinary Assessment Last Done: 05/18/25 15:09
Discharge Date and Time
Print Language: PASHTO
[2025-05-18 17:07] VITALS: BP 123/65
[2025-05-18] MEDS: KEFLEX 500 MG PO (17:17)
== END 2025-05-18 17:30 | disposition home or self-care (01) ==
LOC: EMR 11:08
PROVIDERS: EMERGENCY PHYSICIAN Student in an Organized Health Care Education/Training Program; FAMILY PHYSICIAN Family Medicine
DX: N39.0 Urinary tract infection, site not specified (principal); B96.20 Unspecified Escherichia coli [E. coli] as the cause of diseases classified elsewhere; R31.9 Hematuria, unspecified; K40.90 Unilateral inguinal hernia, without obstruction or gangrene, not specified as recurrent; E11.9 Type 2 diabetes mellitus without complications; I25.810 Atherosclerosis of coronary artery bypass graft(s) without angina pectoris; I10 Essential (primary) hypertension; E78.00 Pure hypercholesterolemia, unspecified; J44.9 Chronic obstructive pulmonary disease, unspecified; Z79.02 Long term (current) use of antithrombotics/antiplatelets; Z79.82 Long term (current) use of aspirin; Z85.46 Personal history of malignant neoplasm of prostate; Z95.1 Presence of aortocoronary bypass graft; Z87.891 Personal history of nicotine dependence
CPT/HCPCS: 99284; 96360; 51702; 80053; 81003; 81015; 85025; 87077; 87086; 87186